=== PATIENT | male | born 1955 | race Caucasian/White ===

== ENCOUNTER → 2020-06-11 09:55 | Outpatient (BNV) | payer MEDICARE, MEDICAID, SELFPAY | PROVIDERS: PCP Internal Medicine; Visit Provider Internal Medicine Medical Oncology | DX: N18.30 Chronic kidney disease, stage 3 unspecified (principal); D63.1 Anemia in chronic kidney disease | CPT/HCPCS: 99213; 99214 ==

== ENCOUNTER 2020-08-27 16:47 | Emergency (ER) | payer MEDICARE, MEDICAID, SELFPAY ==
--- NOTE | 2020-08-27 | XR_ITS ---
EXAMINATION: XR CHEST CLINICAL INFORMATION: Cough and fever COMPARISON: Chest x-ray of 06/23/2014 TECHNIQUE: Frontal view of the chest was obtained. FINDINGS: The cardiac mediastinal silhouette is stable and within normal limits for technique. No abnormal tracheal deviation. Scattered interstitial and patchy opacities are noted bilaterally. No evidence of significant pleural effusions or pneumothorax. Regional skeleton is intact. XR/XR chest 1V IMPRESSION: Scattered interstitial and patchy opacities bilaterally in the mid and lower lung zones are concerning for infectious process in the given clinical settings.
[2020-08-27 17:01] VITALS: BP 162/76; PULSE 100; RESP 16; TEMP 39.5; O2SAT 94; BMI 28.5
[2020-08-27] MEDS: Acetaminophen 325 MG TABLET 650 MG PO (17:10)
--- NOTE | 2020-08-27 17:14 | ECG_ITS ---
Test Reason : FEVER Blood Pressure : / mmHG Vent. Rate : 078 BPM Atrial Rate : 078 BPM P-R Int : 160 ms QRS Dur : 090 ms QT Int : 390 ms P-R-T Axes : 050 019 022 degrees QTc Int : 444 ms Sinus rhythm with Premature atrial complexes Otherwise normal ECG When compared with ECG of 22-JUN-2014 23:22, Premature atrial complexes are now Present Vent. rate has increased BY 31 BPM Nonspecific T wave abnormality now evident in Inferior leads Referred By: Rivka Wallis Electronically Signed By:DUANE GELLER MD
--- NOTE | 2020-08-27 17:17 | ED_ITS ---
HPI - Fever General Chief Complaint: Fever Stated Complaint: Cough Time Seen by Provider: 08/27/20 17:13 Source: patient Mode of arrival: ambulatory Limitations: no limitations History of Present Illness HPI Narrative: 64-year-old male with past medical history of hyperlipidemia, thyroiditis, stage 3 kidney disease, type 2 diabetes, chronic anemia presents with 2 days of fevers, chills, cough and weakness. He has been taking Tylenol with poor effect. He does not report any sick contacts, denies chest pain and pressure taken shortness of breath, abdominal pain, abdominal distention, dysuria, hematuria, weakness and edema. MD elicited complaint: fever Pertinent past history: diabetes Onset (ago): day(s) (2) Measured temperature: 103 F Exacerbating factors: exertion Relieving factors: nothing Associated symptoms: chills, myalgias and cough Treatments prior to arrival fever: acetaminophen Related Data Home Medications Medication Instructions Recorded Confirmed glipizide 10 mg PO DAILY 06/11/20 06/30/20 levothyroxine 200 mcg PO DAILY 06/11/20 06/30/20 metformin 500 mg PO DAILY 06/11/20 06/30/20 omeprazole 20 mg PO DAILY 06/11/20 06/30/20 pioglitazone 45 mg PO DAILY 06/11/20 06/30/20 alcohol swabs 0 pad TOPICAL TID 06/30/20 06/30/20 atorvastatin 40 mg tablet 80 mg PO BEDTIME tab 06/30/20 06/30/20 blood sugar diagnostic #10 ea 06/30/20 06/30/20 lancets 28 gauge #100 ea 06/30/20 06/30/20 Previous Rx's Medication Instructions Recorded fenofibrate nanocrystallized 145 145 mg PO DAILY 90 Days #90 tab 06/22/20 mg tablet azithromycin [Zithromax TRI-CHRIS] See Rx Instructions .ROUTE 08/27/20 .COMPLEX #6 tab benzonatate [Tessalon Perles] 100 mg PO TID PRN 10 Days #30 cap 08/27/20 dexamethasone 6 mg PO DAILY 7 Days #7 tab 08/27/20 Allergies Allergy/AdvReac Type Severity Reaction Status Date / Time No Known Allergies Allergy Verified 08/27/20 17:04 [No Known Allergies*] Review of Systems 2 Review of Systems: Constitutional: positive Fever, positive Chills, positive fatigue, positive Malaise ENT/Mouth: positive sore throat, positive runny nose Eyes: No Discharge Cardiovascular: No Chest Pain, No SOB Respiratory: No Cough, No Sputum, No Wheezing, No Smoke Exposure, No Dyspnea Gastrointestinal: No Nausea, No Vomiting, No Diarrhea Genitourinary: no irregular bleeding, No Dysuria, No Urinary Frequency, No Hematuria, No Urinary Incontinence, No Urgency, No Flank Pain, Musculoskeletal: positive Myalgia Skin: No rash Neuro: No Headache Yes all other systems are reviewed and are negative PMFSH Past Medical History Attestation statement: The following information was validated with the patient. Source: old records reviewed Medical History Anemia in CKD (chronic kidney disease) Autoimmune thyroiditis B12 deficiency CKD stage 3 due to type 2 diabetes mellitus Mixed hyperlipidemia Surgical History History of circumcision Family History Family History Father Hypertension Mother Stroke Sister Breast cancer Social History Social History Alcohol intake: never Smoking Status: Never smoker Use of substances other than those prescribed or required for medical reasons: No Advance Directives: No Advance Directives Information Provided: No Physical Exam Vital Signs: Vital Signs: Last Vital Signs Temp 98.9 F 08/27/20 19:34 Pulse 87 08/27/20 19:30 Resp 16 08/27/20 17:01 BP 162/76 H 08/27/20 17:01 Pulse Ox 94 08/27/20 17:01 Body Mass Index 28.5 Appearance: Alert. Oriented X3. Moderate distress. Febrile, tachycardic Eyes: Pupils equal, round and reactive to light. ENT: Pharynx normal. Neck: Normal inspection. Neck supple. CVS: Normal heart rate and rhythm. Pulses normal. Respiratory: No respiratory distress. Breath sounds normal. Abdomen: Soft and nontender. Skin: Skin warm and dry. Normal skin color. Normal skin turgor. Extremities: No lower extremity edema. Neuro: No motor deficit. No sensory deficit. Course Course Course Narrative: 64-year-old male presents with 2 days of upper respiratory symptoms and fever. Plan of care is CBC, Chem 7, lactic, cultures, EKG and troponin. We will resuscitate with 1 L of fluid, give p.o. antibiotics, dexamethasone and albuterol. Troponin is elevated at 25.6 but patient does have chronic kidney disease stage 3 and is a diabetic. Patient is COVID positive. Patient is not hypoxic on ambulation, maintains O2 sat above 95. Temperature initially 103 oral, 98.9 upon discharge vital signs. Detailed description of signs and symptoms indicating need for emergent intervention, patient did verbalize understanding of and agrees to plan of care discharge home. career advisor utilized for all correspondence. Google translate utilized for discharge instructions. MDM - Fever Differential Diagnosis Differential diagnosis: Likely fever of unknown origin, community acquired pneumonia, viral infection, sepsis and influenza Medical Records Attestation: I reviewed the patient's medical records. Lab Data Attestation: I reviewed the patient's lab results. Result diagrams: 08/27/20 17:50 08/27/20 17:50 Labs: Lab Results 08/27/20 08/27/20 08/27/20 Range/Units 17:43 17:50 17:50 WBC 9.8 (4.8-10.8) X10*3/uL RBC 3.60 L (4.60-5.80) X10*6/uL Hgb 10.2 L (14.0-18.0) g/dl Hct 30.5 L (42-52) % MCV 84.7 (80-98) fL MCH 28.3 (27.0-33.0) pg MCHC 33.4 (31.0-36.0) g/dl RDW 13.5 (11.0-16.0) % Plt Count 171 (160-400) X10*3/uL MPV 11.6 (9.4-12.4) fL Immature Gran % (Auto) 1.0 H (0.0-0.4) % Neut % (Auto) 82.5 H (45-73) % Lymph % (Auto) 7.9 L (20-40) % [place] % (Auto) 8.5 (2-11) % Eos % (Auto) 0.0 (0-4) % Baso % (Auto) 0.1 (0-2) % Lymph # (Auto) 0.8 L (1.2-4.9) X10*3/uL [facility] # (Auto) 0.8 (0.1-1.2) X10*3/uL Eos # (Auto) 0.0 (0.0-0.4) X10*3/uL Baso # (Auto) 0.0 (0.0-0.2) X10*3/uL Abs Immat Gran (auto) 0.10 H (0.00-0.03) X10*3/uL Absolute Neuts (auto) 8.1 (2.0-8.3) X10*3/uL Absolute Nucleated RBC 0.000 (0.0-0.012) X10*3/uL Nucleated RBC % (auto) 0.0 (0.0-0.2) /100WBC PT 15.6 H (10.8-13.0) SEC INR 1.3 H (0.9-1.1) APTT 31.6 (24.1-38.0) SEC Sodium (135-145) mmol/L Potassium (3.3-5.1) mmol/l Chloride (96-108) mmol/L Carbon Dioxide (22-29) mmol/L Anion Gap (12-20) BUN (9-16) mg/dL Creatinine (0.5-1.4) mg/dL Estim Creat Clear Calc Estimated GFR Random Glucose (60-115) mg/dL Lactic Acid (0.5-2.0) mmol/L Calcium (8.4-10.2) mg/dL Magnesium (1.6-2.6) mg/dL Total Bilirubin (0.0-1.0) mg/dL Direct Bilirubin (0.0-0.5) mg/dL AST (5-37) U/L ALT (0-40) U/L Alkaline Phosphatase (39-117) U/L Troponin I High Sens (<3.5-35.0) ng/L Total Protein (6.5-8.0) g/dL Albumin (3.5-5.0) g/dL Lipase (8-78) U/L Urine Color Urine Appearance Urine pH (5.0-8.0) Ur Specific [place] (1.005-1.025) Urine Protein (NEG-TRACE) MG/DL Urine Glucose (UA) (NEG) MG/DL Urine Ketones (NEG) MG/DL Urine Blood (NEG) Urine Nitrite (NEG) Ur Leukocyte Esterase (NEG) Urine RBC (0) /HPF Urine WBC (0-4) /HPF Ur Squamous Epith Cells /LPF Amorphous Sediment /LPF Urine Bacteria /LPF Coronavirus (PCR) POSITIVE A (Negative) Influenza Type A (PCR) NEGATIVE (Negative) Influenza Type B (PCR) NEGATIVE (Negative) RSV RNA Qual (PCR) NEGATIVE (Negative) 08/27/20 08/27/20 08/27/20 Range/Units 17:50 17:50 17:50 WBC (4.8-10.8) X10*3/uL RBC (4.60-5.80) X10*6/uL Hgb (14.0-18.0) g/dl Hct (42-52) % MCV (80-98) fL MCH (27.0-33.0) pg MCHC (31.0-36.0) g/dl RDW (11.0-16.0) % Plt Count (160-400) X10*3/uL MPV (9.4-12.4) fL Immature Gran % (Auto) (0.0-0.4) % Neut % (Auto) (45-73) % Lymph % (Auto) (20-40) % [facility] % (Auto) (2-11) % Eos % (Auto) (0-4) % Baso % (Auto) (0-2) % Lymph # (Auto) (1.2-4.9) X10*3/uL [facility] # (Auto) (0.1-1.2) X10*3/uL Eos # (Auto) (0.0-0.4) X10*3/uL Baso # (Auto) (0.0-0.2) X10*3/uL Abs Immat Gran (auto) (0.00-0.03) X10*3/uL Absolute Neuts (auto) (2.0-8.3) X10*3/uL Absolute Nucleated RBC (0.0-0.012) X10*3/uL Nucleated RBC % (auto) (0.0-0.2) /100WBC PT (10.8-13.0) SEC INR (0.9-1.1) APTT (24.1-38.0) SEC Sodium 132 L (135-145) mmol/L Potassium 4.0 (3.3-5.1) mmol/l Chloride 100 (96-108) mmol/L Carbon Dioxide 20 L (22-29) mmol/L Anion Gap 16 (12-20) BUN 16 (9-16) mg/dL Creatinine 1.85 H (0.5-1.4) mg/dL Estim Creat Clear Calc 41.6 Estimated GFR 37 Random Glucose 138 H (60-115) mg/dL Lactic Acid 1.2 (0.5-2.0) mmol/L Calcium 8.3 L D (8.4-10.2) mg/dL Magnesium 2.0 (1.6-2.6) mg/dL Total Bilirubin 0.7 (0.0-1.0) mg/dL Direct Bilirubin 0.5 (0.0-0.5) mg/dL AST 54 H (5-37) U/L ALT 28 (0-40) U/L Alkaline Phosphatase 36 L D (39-117) U/L Troponin I High Sens (<3.5-35.0) ng/L Total Protein 7.2 (6.5-8.0) g/dL Albumin 3.7 (3.5-5.0) g/dL Lipase 26 (8-78) U/L Urine Color Urine Appearance Urine pH (5.0-8.0) Ur Specific [place] (1.005-1.025) Urine Protein (NEG-TRACE) MG/DL Urine Glucose (UA) (NEG) MG/DL Urine Ketones (NEG) MG/DL Urine Blood (NEG) Urine Nitrite (NEG) Ur Leukocyte Esterase (NEG) Urine RBC (0) /HPF Urine WBC (0-4) /HPF Ur Squamous Epith Cells /LPF Amorphous Sediment /LPF Urine Bacteria /LPF Coronavirus (PCR) (Negative) Influenza Type A (PCR) (Negative) Influenza Type B (PCR) (Negative) RSV RNA Qual (PCR) (Negative) 08/27/20 08/27/20 Range/Units 17:50 18:01 WBC (4.8-10.8) X10*3/uL RBC (4.60-5.80) X10*6/uL Hgb (14.0-18.0) g/dl Hct (42-52) % MCV (80-98) fL MCH (27.0-33.0) pg MCHC (31.0-36.0) g/dl RDW (11.0-16.0) % Plt Count (160-400) X10*3/uL MPV (9.4-12.4) fL Immature Gran % (Auto) (0.0-0.4) % Neut % (Auto) (45-73) % Lymph % (Auto) (20-40) % [facility] % (Auto) (2-11) % Eos % (Auto) (0-4) % Baso % (Auto) (0-2) % Lymph # (Auto) (1.2-4.9) X10*3/uL [facility] # (Auto) (0.1-1.2) X10*3/uL Eos # (Auto) (0.0-0.4) X10*3/uL Baso # (Auto) (0.0-0.2) X10*3/uL Abs Immat Gran (auto) (0.00-0.03) X10*3/uL Absolute Neuts (auto) (2.0-8.3) X10*3/uL Absolute Nucleated RBC (0.0-0.012) X10*3/uL Nucleated RBC % (auto) (0.0-0.2) /100WBC PT (10.8-13.0) SEC INR (0.9-1.1) APTT (24.1-38.0) SEC Sodium (135-145) mmol/L Potassium (3.3-5.1) mmol/l Chloride (96-108) mmol/L Carbon Dioxide (22-29) mmol/L Anion Gap (12-20) BUN (9-16) mg/dL Creatinine (0.5-1.4) mg/dL Estim Creat Clear Calc Estimated GFR Random Glucose (60-115) mg/dL Lactic Acid (0.5-2.0) mmol/L Calcium (8.4-10.2) mg/dL Magnesium (1.6-2.6) mg/dL Total Bilirubin (0.0-1.0) mg/dL Direct Bilirubin (0.0-0.5) mg/dL AST (5-37) U/L ALT (0-40) U/L Alkaline Phosphatase (39-117) U/L Troponin I High Sens 25.6 (<3.5-35.0) ng/L Total Protein (6.5-8.0) g/dL Albumin (3.5-5.0) g/dL Lipase (8-78) U/L Urine Color DARK YELLOW Urine Appearance HAZY Urine pH 5.5 (5.0-8.0) Ur Specific [place] 1.025 (1.005-1.025) Urine Protein 2+ H (NEG-TRACE) MG/DL Urine Glucose (UA) NEG (NEG) MG/DL Urine Ketones NEG (NEG) MG/DL Urine Blood 1+ H (NEG) Urine Nitrite NEG (NEG) Ur Leukocyte Esterase NEG (NEG) Urine RBC 1-4 (0) /HPF Urine WBC 0-2 (0-4) /HPF Ur Squamous Epith Cells TRACE /LPF Amorphous Sediment TRACE /LPF Urine Bacteria NONE /LPF Coronavirus (PCR) (Negative) Influenza Type A (PCR) (Negative) Influenza Type B (PCR) (Negative) RSV RNA Qual (PCR) (Negative) Imaging Data Chest x-ray: Attestation: I personally reviewed and interpreted this imaging study as follows: Radiologist's impression: EXAMINATION: XR CHEST CLINICAL INFORMATION: Cough and fever COMPARISON: Chest x-ray of 06/23/2014 TECHNIQUE: Frontal view of the chest was obtained. FINDINGS: The cardiac mediastinal silhouette is stable and within normal limits for technique. No abnormal tracheal deviation. Scattered interstitial and patchy opacities are noted bilaterally. No evidence of significant pleural effusions or pneumothorax. Regional skeleton is intact. XR/XR chest 1V IMPRESSION: Scattered interstitial and patchy opacities bilaterally in the mid and lower lung zones are concerning for infectious process in the given clinical settings. ECG Data ECG #1: Attestation: I personally reviewed and interpreted this ECG as follows: ECG interpretation date: 08/27/20 ECG interpretation time: 18:32 Interpretation: Vent. Rate : 078 BPM Atrial Rate : 078 BPM P-R Int : 160 ms QRS Dur : 090 ms QT Int : 390 ms P-R-T Axes : 050 019 022 degrees QTc Int : 444 ms Sinus rhythm with Premature atrial complexes Otherwise normal ECG When compared with ECG of 22-JUN-2014 23:22, Premature atrial complexes are now Present Vent. rate has increased BY 31 BPM Nonspecific T wave abnormality now evident in Inferior leads Scores Heart Score History: -1- moderately suspicious ECG: -1- non specific repolarization disturbance Age: -1- >45 - <65 Risk factory: -1- 1 or 2 risk factors Troponin: -0- < or = normal limit Score: 4 Risk: 16.6% Discharge Plan Discharge Clinical Impression: COVID-19 Patient Disposition: Home, Self-Care Instructions: COVID-19 (Coronavirus Disease 2019) (ED) Additional Instructions: Harvey dado positivo en COVID-19. Por favor, mantenga el aislamiento social seg?n las pautas estatales y federales. Estamos recetando antibi?ticos para prevenir abe infecci?n bacteriana, ya que usted tiene un mayor riesgo debido a la diabetes y la enfermedad renal. Por favor, tome azitromicina solomon se indica. Completa todo el curso de ana antibi?grace. You have tested positive for COVID-19. Please maintain social isolation per State and Federal guidelines. We are prescribing antibiotics to prevent a bacterial infection as you have a higher risk because of diabetes and kidney disease. Please take azithromycin as directed. Complete the entire course of this antibiotic. Prescriptions: New azithromycin [Zithromax TRI-CHRIS] 500 mg tablet See Rx Instructions .ROUTE .COMPLEX Qty: 6 RF: 0 dexamethasone 6 mg tablet 6 mg PO DAILY 7 Days Qty: 7 RF: 0 benzonatate [Tessalon Perles] 100 mg capsule 100 mg PO TID PRN (Reason: cough) 10 Days Qty: 30 RF: 0 No Action fenofibrate nanocrystallized 145 mg tablet 145 mg PO DAILY 90 Days Qty: 90 RF: 3 glipizide 10 mg tablet extended release 24hr 10 mg PO DAILY RF: 0 pioglitazone 45 mg tablet 45 mg PO DAILY RF: 0 levothyroxine 50 mcg tablet 200 mcg PO DAILY RF: 0 omeprazole 20 mg capsule,delayed release(DR/EC) 20 mg PO DAILY RF: 0 metformin 500 mg tablet extended release 24 hr 500 mg PO DAILY RF: 0 atorvastatin 40 mg tablet 80 mg PO BEDTIME RF: 0 alcohol swabs Pads, Medicated 0 pad topical TID RF: 0 (DME) lancets 28 gauge misc See Rx Instructions ea topical DAILY Qty: 100 RF: 0 (DME) FreeStyle Lite Strips Strip See Rx Instructions ea Not Applicable DAILY Qty: 10 RF: 0 Interventions: ED Discharge Assessment Last Done: 08/27/20 20:21 Discharge Date/Time: 08/27/20 20:24
[2020-08-27 17:59] VITALS: TEMP 38.1
[2020-08-27] MEDS: 0.9 % Sodium Chloride 1,000 ML 999 ML IVCONT (18:00)
[2020-08-27] MEDS: Ketorolac Tromethamine 15 MG/ML VIAL IVPUSH (18:00)
[2020-08-27 18:14] LABS: Basophils Percent Auto 0.1 % (0-2); Hematocrit 30.5 % (42-52); Hemoglobin 10.2 g/dl (14.0-18.0); Lymphocytes Absolute Auto 0.8 X10*3/uL (1.2-4.9); Lymphocytes Percent Auto 7.9 % (20-40); MANUAL DIFF FLAG NO; Mean Corpuscular HGB Conc 33.4 g/dl (31.0-36.0); Mean Corpuscular Hemoglobin 28.3 pg (27.0-33.0); Mean Corpuscular Volume 84.7 fL (80-98); Mean Platelet Volume 11.6 fL (9.4-12.4); Monocytes Absolute Auto 0.8 X10*3/uL (0.1-1.2); Monocytes Percent Auto 8.5 % (2-11); Neutrophils Absolute Auto 8.1 X10*3/uL (2.0-8.3); Neutrophils Percent Auto 82.5 % (45-73); Platelet Count 171 X10*3/uL (160-400); Red Cell Distribution Width 13.5 % (11.0-16.0); White Blood Count 9.8 X10*3/uL (4.8-10.8)
[2020-08-27 18:21] LABS: INTERNATIONAL NORM RATIO 1.3 (0.9-1.1); Prothrombin Time 15.6 SEC (10.8-13.0)
[2020-08-27 18:24] LABS: Partial Thromboplastin Time 31.6 SEC (24.1-38.0)
[2020-08-27 18:26] LABS: Glucose Urine UA NEG (NEG); Leukocyte Esterase Urine NEG (NEG); Nitrite Urine NEG (NEG); PH 5.5 (5.0-8.0); Specific Gravity - Urine 1.025 (1.005-1.025); Urine Blood 1+ (NEG); Urine Ketones NEG (NEG); Urine Protein 2+ MG/DL (NEG-TRACE)
[2020-08-27 18:29] LABS: Appearance Urine HAZY; Color Urine DARK YELLOW
[2020-08-27 18:35] LABS: Amorphous Sediment Urine TRACE /LPF; Squamous Epithelial Cell Urine TRACE /LPF; WBC Urine 0-2 /HPF (0-4)
[2020-08-27 18:39] LABS: Lactic Acid 1.2 mmol/L (0.5-2.0)
[2020-08-27 18:43] LABS: Alanine Aminotransferase 28 U/L (0-40); Albumin Level 3.7 g/dL (3.5-5.0); Alkaline Phosphatase 36 U/L (39-117); Anion Gap 16 (12-20); Aspartate Amino Transferase 54 U/L (5-37); Bilirubin Direct 0.5 mg/dL (0.0-0.5); Bilirubin Total 0.7 mg/dL (0.0-1.0); Blood Urea Nitrogen 16 mg/dL (9-16); Calcium 8.3 mg/dL (8.4-10.2); Carbon Dioxide 20 mmol/L (22-29); Chloride 100 mmol/L (96-108); Creatinine Clr Calc Pharmacy 41.6; Estimated Glomerular Filt Rate 37; Glucose Random 138 mg/dL (60-115); Lipase 26 U/L (8-78); Sodium 132 mmol/L (135-145); Total Protein 7.2 g/dL (6.5-8.0)
[2020-08-27 18:48] LABS: Troponin-I High Sensitivity 25.6 ng/L (<3.5-35.0)
[2020-08-27 18:51] LABS: Influenza A PCR NEGATIVE (Negative); Influenza B PCR NEGATIVE (Negative); Resp Syncy Virus RNA Qual PCR NEGATIVE (Negative)
[2020-08-27 18:57] LABS: SARS COV2 PCR INHOUSE POSITIVE (Negative)
[2020-08-27] MEDS: Albuterol Sulfate 90 MCG 8 GM INHALER 2 PUFF INHALE (19:29)
[2020-08-27 19:30] VITALS: PULSE 87; O2SAT 94
[2020-08-27 19:34] VITALS: TEMP 37.2
--- NOTE | 2020-08-27 19:34 | PC.NURSE ---
PT REMAINS AFEBRILE. SPO2 >96% ON ROOM AIR WHILE AMBULATING AND CONVERSING. RESP EVEN AND NONLABOURED. RT TO BEDSIDE FOR INSTRUCTION ON USE OF INHALER.
[2020-08-27] MEDS: dexAMETHasone 6 MG TABLET PO (20:10)
[2020-08-27] MEDS: Azithromycin 500 MG TABLET PO (20:10)
[2020-08-27 20:49] VITALS: TEMP 39.4
== END 2020-08-27 20:24 | disposition home or self-care (01) ==
PROVIDERS: Nurse Practitioner Family; Emergency Provider Emergency Medicine; PCP Internal Medicine
DX: U07.1 COVID-19 (principal); R50.9 Fever, unspecified; R05 Cough; I12.9 Hypertensive chronic kidney disease with stage 1 through stage 4 chronic kidney disease, or unspecified chronic kidney disease; E11.22 Type 2 diabetes mellitus with diabetic chronic kidney disease; N18.9 Chronic kidney disease, unspecified; Z79.84 Long term (current) use of oral hypoglycemic drugs; Z79.899 Other long term (current) drug therapy
CPT/HCPCS: 0241U; 36415; 71045; 80048; 80076; 81001; 83605; 83690; 83735; 84484; 85025; 85610; 85730; 87040; 93005; 94640; 96361; 96374; 99284; J1885; J8540

== ENCOUNTER 2020-09-04 12:03 | Emergency (ER) | payer MEDICARE, MEDICAID, SELFPAY ==
[2020-09-04] VITALS (8 sets, daily range): BP systolic 125–171; BP diastolic 68–98; PULSE 64–97; RESP 16–85; TEMP 36.6–36.8; O2SAT 92–98; BMI 31.1
--- NOTE | 2020-09-04 12:34 | US_ITS ---
EXAMINATION: ULTRASOUND ARTERIAL DUPLEX LOWER EXTREMITY LEFT CLINICAL INFORMATION: Left lower extremity numbness, discolored, cool. COMPARISON: None TECHNIQUE: Multiple 2-D grayscale and duplex Doppler ultrasound images of the arteries of the left lower extremity were obtained. FINDINGS: Triphasic and biphasic waveforms are seen in the left lower extremity except in the left profundofemoral and popliteal arteries demonstrated monophasic waveforms. Peak systolic arterial velocities are as follows in centimeters per second: Common femoral: 100 Profunda femoral: 117 Proximal superficial femoral: 102 Mid superficial femoral: 80 Distal superficial femoral: 40 Proximal Popliteal: 28 Distal popliteal: 12, severe atherosclerotic plaque is seen at this level without significant luminal narrowing. Posterior tibial: No detectable arterial waveforms with severe atherosclerotic plaque. Peroneal:No detectable arterial waveforms with severe atherosclerotic plaque. Dorsalis pedis: Not interrogated. US/US arterial duplex LE LT IMPRESSION: 1. Severe atherosclerotic plaque and associated luminal narrowing in the left popliteal and visualized calf arteries with associated severe stenosis and no detectable arterial waveforms in the left posterior tibial and peroneal arteries. Correlate with physical exam. This could be confirmed with CT angiography. This critical result was discussed with Dr. Chi at 2:42 PM on 09/04/2020 and it was ascertained that the content and urgency of the report was understood at the time of direct communication.
--- NOTE | 2020-09-04 12:35 | ECG_ITS ---
Test Reason : RULE OUT DVT Blood Pressure : / mmHG Vent. Rate : 068 BPM Atrial Rate : 068 BPM P-R Int : 150 ms QRS Dur : 088 ms QT Int : 432 ms P-R-T Axes : 028 012 045 degrees QTc Int : 459 ms Normal sinus rhythm Normal ECG When compared with ECG of 27-AUG-2020 18:32, Premature atrial complexes are no longer Present Referred By: Nakita Chi Electronically Signed By:YOLY GARCIAS
--- NOTE | 2020-09-04 12:38 | ED_ITS ---
HPI - General Adult General Chief complaint: Extremity Injury, Lower Stated complaint: LEFT LEG PAIN Time Seen by Provider: 09/04/20 12:23 Source: patient and EMS Mode of arrival: EMS Limitations: language barrier History of Present Illness HPI narrative: Patient comes to emergency room via EMS complaining of left lower extremity pain. Patient states yesterday at 20:00, he noticed that his leg started to become numb/tingly and painful. Patient went to sleep, this morning when patient woke up, he could not tolerate bearing weight. This afternoon, patient called his son, explained the symptoms and then EMS was called. Patient is poor historian. Of note, patient was seen here on August 27, patient was diagnosed with COVID-19. Related Data Home Medications Medication Instructions Recorded Confirmed glipizide 10 mg PO DAILY 06/11/20 06/30/20 levothyroxine 200 mcg PO DAILY 06/11/20 06/30/20 metformin 500 mg PO DAILY 06/11/20 06/30/20 omeprazole 20 mg PO DAILY 06/11/20 06/30/20 pioglitazone 45 mg PO DAILY 06/11/20 06/30/20 alcohol swabs 0 pad TOPICAL TID 06/30/20 06/30/20 atorvastatin 40 mg tablet 80 mg PO BEDTIME tab 06/30/20 06/30/20 blood sugar diagnostic #10 ea 06/30/20 06/30/20 lancets 28 gauge #100 ea 06/30/20 06/30/20 Previous Rx's Medication Instructions Recorded fenofibrate nanocrystallized 145 145 mg PO DAILY 90 Days #90 tab 06/22/20 mg tablet azithromycin [Zithromax TRI-CHRIS] See Rx Instructions .ROUTE 08/27/20 .COMPLEX #6 tab benzonatate [Tessalon Perles] 100 mg PO TID PRN 10 Days #30 cap 08/27/20 dexamethasone 6 mg PO DAILY 7 Days #7 tab 08/27/20 Allergies Allergy/AdvReac Type Severity Reaction Status Date / Time No Known Allergies Allergy Verified 09/04/20 12:23 [No Known Allergies*] Review of Systems Review of Systems: Constitutional : No Weight loss, No Fever, No Chills, No Night Sweats, No Fatigue, No Malaise ENT/Mouth : No Hearing loss, No Ear Pain, No Nasal Congestion, No Sinus Pain, No Hoarseness, No sore throat, No Rhinorrhea, No Swallowing Difficulty Eyes: No Eye Pain, No Swelling, No Redness, No Foreign Body, No Discharge, No Vision Changes Cardiovascular : No Chest Pain, No SOB, No Dyspnea on Exertion, No Orthopnea, No Edema, No Palpitations Respiratory : No Cough, No Sputum, No Wheezing, No Smoke Exposure, No Dyspnea Gastrointestinal : No Nausea, No Vomiting, No Diarrhea, No Constipation, No abdominal Pain, No Hematochezia, No Melena Genitourinary : no irregular bleeding, No Dysuria, No Urinary Frequency, No Hematuria, No Urinary Incontinence, No Urgency, No Flank Pain, No Urinary Flow Changes, No Hesitancy Musculoskeletal : complaining of left-sided foot pain Skin : No Skin Lesions, No rash Neuro : No Weakness, No Numbness, No Paresthesias, No Loss of Consciousness, No Dizziness, No Headache Psych : No Anxiety/Panic, No Depression, No SI/HI/AH/VH, No Social Issues, Heme/Lymph: No Bruising, No Bleeding,No Lymphadenopathy Endocrine : No Polyuria, No Polydipsia, No Temperature Intolerance [facility] Past Medical History Medical History Anemia in CKD (chronic kidney disease) Autoimmune thyroiditis B12 deficiency CKD stage 3 due to type 2 diabetes mellitus Mixed hyperlipidemia Surgical History History of circumcision Family History Family History Father Hypertension Mother Stroke Sister Breast cancer Social History Social History Alcohol intake: never Smoking Status: Never smoker Advance Directives: No Advance Directives Information Provided: No Physical Exam Vital Signs: Vital Signs: Last Vital Signs Temp 98.3 F 09/04/20 14:00 Pulse 70 09/04/20 14:00 Resp 20 09/04/20 15:28 BP 149/89 H 09/04/20 14:00 Pulse Ox 98 09/04/20 14:00 Body Mass Index 31.1 Appearance: Alert. Oriented X3. No acute distress. Eyes: Pupils equal, round and reactive to light. ENT: Pharynx normal. Neck: Normal inspection. Neck supple. No lymph nodes noted. No crepitus CVS: Normal heart rate and rhythm. Pulses normal. Normal S1 and S2 Respiratory: No respiratory distress. Breath sounds normal. No Wheezing. No rales Abdomen: Soft and nontender. No rigidity. No distention. good BS x4 Skin: See below Extremities: No lower extremity edema bilaterally. Pedal pulse on the right foot 1/5, left pedal pulses undetectable. Foot has a bluish discoloration, cold to touch, sluggish capilary refill, patient states it is very painful to mild palpation Neuro: Oriented X 3. No motor deficit. No sensory deficit. Moving all extermities. No slurred speech. Course Course Course Narrative: Patient's arterial ultrasound was ordered on arrival, it has been over an hour and the patient has not gone to ultrasound to rule out arterial blood clot. Our senior technical writer discussed with Dr. Telles if we could do a runoff of the extremities, however patient's creatinine is 1.91 and GFR is 35, at this time it is not recommended, current recommendations is to keep insisting to speed up the process for the arterial ultrasound 12:42 I discussed the arterial ultrasound with our radiologist, patient has luminal narrowing in the left popliteal artery, also has associated severe stenosis and no detectable arterial waveforms in the left posterior tibial and peroneal arteries For our ED psychiatric secretary, she has been on hold for over 9 minutes, waiting for the answering service to picking belt operator the phone call. I spoke with Dr. Chi at 15:35, discussed the arterial ultrasound and physical exam with Dr. Chi, we discussed admitting the patient here versus being transferred, after informing Dr. Chi that the patient has foot appearance is worsening, Dr. Chi recommended to transfer him to [facility]. Patient was given a heparin bolus and started on a heparin drip. at 3:55pm I discussed the patient with Dr. Caal from [facility] vascular surgery, patient accepted. Medical Decision Making Lab Data Result diagrams: 09/04/20 12:43 09/04/20 12:43 Labs: Lab Results 09/04/20 09/04/20 09/04/20 Range/Units 12:43 12:43 12:43 WBC 13.9 H (4.8-10.8) X10*3/uL RBC 4.05 L (4.60-5.80) X10*6/uL Hgb 11.5 L (14.0-18.0) g/dl Hct 34.6 L (42-52) % MCV 85.4 (80-98) fL MCH 28.4 (27.0-33.0) pg MCHC 33.2 (31.0-36.0) g/dl RDW 13.9 (11.0-16.0) % Plt Count 432 H D (160-400) X10*3/uL MPV 10.6 (9.4-12.4) fL Immature Gran % (Auto) 3.3 H (0.0-0.4) % Neut % (Auto) 82.1 H (45-73) % Lymph % (Auto) 8.1 L (20-40) % [place] % (Auto) 6.3 (2-11) % Eos % (Auto) 0.1 (0-4) % Baso % (Auto) 0.1 (0-2) % Lymph # (Auto) 1.1 L (1.2-4.9) X10*3/uL [place] # (Auto) 0.9 (0.1-1.2) X10*3/uL Eos # (Auto) 0.0 (0.0-0.4) X10*3/uL Baso # (Auto) 0.0 (0.0-0.2) X10*3/uL Abs Immat Gran (auto) 0.46 H (0.00-0.03) X10*3/uL Absolute Neuts (auto) 11.4 H (2.0-8.3) X10*3/uL Absolute Nucleated RBC 0.000 (0.0-0.012) X10*3/uL Nucleated RBC % (auto) 0.0 (0.0-0.2) /100WBC PT 14.0 H (10.8-13.0) SEC INR 1.2 H (0.9-1.1) D-Dimer 648 NG/ML Sodium 133 L (135-145) mmol/L Potassium 4.7 (3.3-5.1) mmol/l Chloride 98 (96-108) mmol/L Carbon Dioxide 22 (22-29) mmol/L Anion Gap 18 (12-20) BUN 31 H D (9-16) mg/dL Creatinine 1.91 H (0.5-1.4) mg/dL Estim Creat Clear Calc 35.5 Estimated GFR 35 POC Glucose (60-115) mg/dL Random Glucose 435 H* (60-115) mg/dL Lactic Acid (0.5-2.0) mmol/L Calcium 8.9 D (8.4-10.2) mg/dL 09/04/20 09/04/20 09/04/20 Range/Units 13:26 14:36 15:01 WBC (4.8-10.8) X10*3/uL RBC (4.60-5.80) X10*6/uL Hgb (14.0-18.0) g/dl Hct (42-52) % MCV (80-98) fL MCH (27.0-33.0) pg MCHC (31.0-36.0) g/dl RDW (11.0-16.0) % Plt Count (160-400) X10*3/uL MPV (9.4-12.4) fL Immature Gran % (Auto) (0.0-0.4) % Neut % (Auto) (45-73) % Lymph % (Auto) (20-40) % [place] % (Auto) (2-11) % Eos % (Auto) (0-4) % Baso % (Auto) (0-2) % Lymph # (Auto) (1.2-4.9) X10*3/uL [place] # (Auto) (0.1-1.2) X10*3/uL Eos # (Auto) (0.0-0.4) X10*3/uL Baso # (Auto) (0.0-0.2) X10*3/uL Abs Immat Gran (auto) (0.00-0.03) X10*3/uL Absolute Neuts (auto) (2.0-8.3) X10*3/uL Absolute Nucleated RBC (0.0-0.012) X10*3/uL Nucleated RBC % (auto) (0.0-0.2) /100WBC PT (10.8-13.0) SEC INR (0.9-1.1) D-Dimer NG/ML Sodium (135-145) mmol/L Potassium (3.3-5.1) mmol/l Chloride (96-108) mmol/L Carbon Dioxide (22-29) mmol/L Anion Gap (12-20) BUN (9-16) mg/dL Creatinine (0.5-1.4) mg/dL Estim Creat Clear Calc Estimated GFR POC Glucose 136 H 70 (60-115) mg/dL Random Glucose (60-115) mg/dL Lactic Acid 3.1 H* (0.5-2.0) mmol/L Calcium (8.4-10.2) mg/dL Imaging Data Arterial ultrasound left lower extremity: Radiologist's impression: 1. Severe atherosclerotic plaque and associated luminal narrowing in the left popliteal and visualized calf arteries with associated severe stenosis and no detectable arterial waveforms in the left posterior tibial and peroneal arteries. Correlate with physical exam. This could be confirmed with CT angiography. ECG Data Attestation: I personally reviewed and interpreted this ECG as follows: (Normal sinus rhythm, heart rate 68, QTC 459, no ST segment depressions or elevations, no T-wave inversions) Critical Care Time Critical Care Time Total Critical Care Time: 60 Discharge Plan Discharge Clinical Impression: Ischemia of left lower extremity Patient Disposition: Xfer [facility] Prescriptions: No Action fenofibrate nanocrystallized 145 mg tablet 145 mg PO DAILY 90 Days Qty: 90 RF: 3 glipizide 10 mg tablet extended release 24hr 10 mg PO DAILY RF: 0 pioglitazone 45 mg tablet 45 mg PO DAILY RF: 0 levothyroxine 50 mcg tablet 200 mcg PO DAILY RF: 0 omeprazole 20 mg capsule,delayed release(DR/EC) 20 mg PO DAILY RF: 0 metformin 500 mg tablet extended release 24 hr 500 mg PO DAILY RF: 0 atorvastatin 40 mg tablet 80 mg PO BEDTIME RF: 0 azithromycin [Zithromax TRI-CHRIS] 500 mg tablet See Rx Instructions .ROUTE .COMPLEX Qty: 6 RF: 0 dexamethasone 6 mg tablet 6 mg PO DAILY 7 Days Qty: 7 RF: 0 benzonatate [Tessalon Perles] 100 mg capsule 100 mg PO TID PRN (Reason: cough) 10 Days Qty: 30 RF: 0 alcohol swabs Pads, Medicated 0 pad topical TID RF: 0 (DME) lancets 28 gauge misc See Rx Instructions ea topical DAILY Qty: 100 RF: 0 (DME) FreeStyle Lite Strips Strip See Rx Instructions ea Not Applicable DAILY Qty: 10 RF: 0
[2020-09-04 12:54] LABS: Basophils Percent Auto 0.1 % (0-2); Eosinophils Percent Auto 0.1 % (0-4); Hematocrit 34.6 % (42-52); Hemoglobin 11.5 g/dl (14.0-18.0); Imm Gran Abs Auto 0.46 X10*3/uL (0.00-0.03); Imm Gran Pct Auto 3.3 % (0.0-0.4); Lymphocytes Absolute Auto 1.1 X10*3/uL (1.2-4.9); Lymphocytes Percent Auto 8.1 % (20-40); Mean Corpuscular HGB Conc 33.2 g/dl (31.0-36.0); Mean Corpuscular Hemoglobin 28.4 pg (27.0-33.0); Mean Corpuscular Volume 85.4 fL (80-98); Mean Platelet Volume 10.6 fL (9.4-12.4); Monocytes Absolute Auto 0.9 X10*3/uL (0.1-1.2); Monocytes Percent Auto 6.3 % (2-11); Neutrophils Absolute Auto 11.4 X10*3/uL (2.0-8.3); Neutrophils Percent Auto 82.1 % (45-73); Platelet Count 432 X10*3/uL (160-400); Red Blood Count 4.05 X10*6/uL (4.60-5.80); Red Cell Distribution Width 13.9 % (11.0-16.0); White Blood Count 13.9 X10*3/uL (4.8-10.8)
[2020-09-04 12:56] LABS: MANUAL DIFF FLAG NO
[2020-09-04 13:00] LABS: INTERNATIONAL NORM RATIO 1.2 (0.9-1.1)
[2020-09-04 13:03] LABS: D Dimer 648 NG/ML
[2020-09-04 13:19] LABS: Anion Gap 18 (12-20); Blood Urea Nitrogen 31 mg/dL (9-16); Calcium 8.9 mg/dL (8.4-10.2); Carbon Dioxide 22 mmol/L (22-29); Chloride 98 mmol/L (96-108); Creatinine Clr Calc Pharmacy 35.5; Estimated Glomerular Filt Rate 35; Glucose Random 435 mg/dL (60-115); Potassium 4.7 mmol/l (3.3-5.1); Sodium 133 mmol/L (135-145)
[2020-09-04] MEDS: Morphine Sulfate 4 MG/ML CARTRIDGE IVPUSH (13:49)
[2020-09-04] MEDS: 0.9 % Sodium Chloride 1,000 ML 999 ML IVCONT (13:49)
[2020-09-04] MEDS: Insulin Regular, Human 100 UNIT/ML 3 ML VIAL 10 UNIT IVPUSH (13:50)
--- NOTE | 2020-09-04 13:53 | PC.NURSE ---
ultrasound at bedside
[2020-09-04 14:12] LABS: Lactic Acid 3.1 mmol/L (0.5-2.0)
[2020-09-04 14:45] LABS: Glucose, Whole Blood 136 mg/dL (60-115)
[2020-09-04] MEDS: Dextrose 5 % and 0.45 % NaCl 1,000 ML 125 ML IVCONT (15:13)
[2020-09-04 15:24] LABS: Glucose, Whole Blood 70 mg/dL (60-115)
[2020-09-04] MEDS: HYDROmorphone HCl 1 MG/ML SYRINGE IVPUSH ×2 (15:28→16:29)
[2020-09-04 15:33] LABS: Reflex Lactate? Lactic Acid Added
--- NOTE | 2020-09-04 15:38 | PC.NURSE ---
[facility] PT TX LINE CALLED @ DR ASHLEY REQUEST@ [phone] MJ ANSWERS, TAKES PT INFO, CALL BACK NUMBER AND ASKS TO SPEAK WITH DR GABI ASHLEY TAKES OVER CALL RIGHT AWAY
--- NOTE | 2020-09-04 15:54 | PC.NURSE ---
RETURN CALL FROM @ THIS TIME DR ASHLEY TAKES OVER CALL
[2020-09-04] MEDS: Heparin Sodium,Porcine/1/2NS 25,000 UNIT/250 ML IV.SOLN 11.16 UNIT IVCONT (16:27)
[2020-09-04] MEDS: Heparin Sodium,Porcine 5,000 UNIT/ML VIAL 3188 UNIT IVPUSH (16:28)
[2020-09-04 16:32] LABS: ~Lactic Acid-LAB USE ONLY 2.7 mmol/L (0.5-2.0)
--- NOTE | 2020-09-04 16:34 | PC.NURSE ---
l lower leg continues to become more and more discolored, pale and cool from mid noonan down, mottled in bridge of foot. cap refill is hard to measure due to palor.
--- NOTE | 2020-09-04 16:49 | PC.NURSE ---
RETURN ALL FROM YANY @ [facility] PT PLACEMENT @ THIS TIME SARAH 6B BED 68A RN TO RN [phone]
--- NOTE | 2020-09-04 17:04 | PC.NURSE ---
no improvement in lle. continues to appear mottled in foot and is very cool/pale in calf. 2l nc applied. [place] [facility] [place]n spoke with shad on phone for update.
[2020-09-04 17:08] LABS: Glucose, Whole Blood 72 mg/dL (60-115)
[2020-09-04 17:08] LABS: Glucose, Whole Blood 79 mg/dL (60-115)
--- NOTE | 2020-09-04 17:10 | PC.NURSE ---
Rn to Rn with holden Vega 6B.
[2020-09-04 17:34] LABS: Glucose, Whole Blood 133 mg/dL (60-115)
--- NOTE | 2020-09-04 17:34 | PC.NURSE ---
bedside report to ems. pt alert. foot continues to deteriorate.
[2020-09-04 17:54] LABS: Reflex Lactate? 2 Y
== END 2020-09-04 17:35 | disposition short-term general hospital (02) ==
PROVIDERS: Emergency Provider Emergency Medicine
DX: I99.8 Other disorder of circulatory system (principal); M79.662 Pain in left lower leg; E11.22 Type 2 diabetes mellitus with diabetic chronic kidney disease; N18.30 Chronic kidney disease, stage 3 unspecified; D63.1 Anemia in chronic kidney disease; Z86.16 Personal history of COVID-19
CPT/HCPCS: 36415; 80048; 82947; 83605; 85025; 85379; 85610; 93005; 93926; 96361; 96365; 96366; 96375; 99285; 99291; J1170; J2270

== ENCOUNTER 2020-10-21 10:06 | Outpatient (REF) | payer MEDICARE, MEDICAID, SELFPAY ==
--- NOTE | ~2020-10-21 | XR_ITS ---
EXAMINATION: XR FEMUR, LEFT CLINICAL INFORMATION: Status post above-knee amputation, fall. COMPARISON: None TECHNIQUE: AP and lateral views of the left femur were obtained. FINDINGS: The patient is status post above-knee amputation. The distal stump soft tissues and distal margin of the femur are intact without abnormality. Mild heterotopic bone formation is seen medially without abnormality. The proximal femur is intact. XR/XR femur LT 2V IMPRESSION: Postsurgical changes without acute abnormality.
== END 2020-10-21 10:07 | disposition home or self-care (01) ==
LOC: HO.XRAY 10:06
PROVIDERS: PCP Internal Medicine; Visit Provider Nurse Practitioner Adult Health
DX: Z89.612 Acquired absence of left leg above knee (principal)
CPT/HCPCS: 73552

== ENCOUNTER 2021-02-20 11:50 | Inpatient (IN) | payer MEDICARE, MEDICAID, SELFPAY ==
--- NOTE | ~2021-02-20 | US_ITS ---
EXAMINATION: US ABDOMEN COMPLETE CLINICAL INFORMATION: Abnormal LFTs.. COMPARISON: None TECHNIQUE: Real-time imaging of the abdominal viscera. FINDINGS: Limited exam as patient is unable to hold breath and patient's body habitus. PANCREAS: Normal. ABDOMINAL AORTA: The proximal, mid, and distal segments are normal in caliber. INFERIOR VENA CAVA: Visualized portions are normal. LIVER: Normal. The liver is normal in size. The liver contour is normal. Parenchymal echogenicity is normal. No focal hepatic lesion. There is no intrahepatic biliary duct dilatation seen. GALLBLADDER: The gallbladder is physiologically distended with echogenic stones and a positive GREY signed COMMON BILE DUCT: Normal in caliber measuring 0.6 cm in diameter. RIGHT KIDNEY: Normal. No hydronephrosis. No renal calculi or focal parenchymal lesions. The kidney measures 10.0 cm in maximum dimension. LEFT KIDNEY: Normal. No hydronephrosis. No renal calculi or focal parenchymal lesions. The kidney measures 10.6 cm in maximum dimension. SPLEEN: Normal. The spleen measures 7.7 cm in maximum dimension. FREE FLUID: None. US/US abdomen complete IMPRESSION: Gallstone with positive GREY sign. Rest of the abdominal ultrasound is unremarkable.
--- NOTE | ~2021-02-20 | XR_ITS ---
EXAMINATION: PORTABLE CHEST 1 VIEW CLINICAL INFORMATION: Weakness. COMPARISON: 08/27/2020. TECHNIQUE: Portable frontal view of the chest was obtained. FINDINGS: The lungs are well expanded. No focal infiltrate, effusion, edema, or pneumothorax. Cardiac and mediastinal silhouettes are within normal limits for technique. No acute bony abnormality seen. XR/XR chest 1V IMPRESSION: No evidence of acute disease.
--- NOTE | ~2021-02-20 | CT_ITS ---
EXAMINATION: CT HEAD WITHOUT CONTRAST CLINICAL INFORMATION: Right lower extremity weakness for one month. COMPARISON: None TECHNIQUE: Contiguous axial imaging was performed from the skull base to vertex without intravenous administration of contrast. This CT examination was performed using dose optimization techniques as appropriate, variously including the following: *Automated exposure control *Adjustment of mA and/or kV according to patient size (this includes techniques or standardized protocols for targeted exams where dose is matched to indication/reason for exam; i.e. extremities or head) *Use of iterative reconstruction technique DLP: 637 mGy-cm This CT examination was performed using dose optimization techniques as appropriate, variously including the following: *Automated exposure control *Adjustment of mA and/or kV according to patient size (this includes techniques or standardized protocols for targeted exams where dose is matched to indication/reason for exam; i.e. extremities or head) *Use of iterative reconstruction technique FINDINGS: Brain parenchyma and vessels: No acute pathology. There is symmetric, physiologic calcification of the globus pallidi. Thomas-white matter differentiation is well preserved. No cerebral edema, major vascular territory infarction, hemorrhage, mass or midline shift. There is atherosclerotic calcification of cavernous carotid arteries.. Cerebrospinal fluid spaces: Normal. No hydrocephalus or extra-axial fluid collections. Cerebellum and brainstem: Normal. The cerebellar tonsils are in normal position. The cerebellopontine angles are normal. Calvarium and temporomandibular joints: Calvarium is intact. Mastoid air cells and middle ear cavities are well aerated. The TMJs are normal. Paranasal sinuses and orbits: The visualized paranasal sinuses are well aerated and without air-fluid levels. The visualized orbits and globes are intact. Other: No scalp hematoma. No acute findings in the visualized extracranial soft tissues. CT/CT head/brain wo con IMPRESSION: No significant findings. No evidence of mass, infarction, hemorrhage or other acute intracranial pathology.
[2021-02-20 11:58] VITALS: BP 155/78; PULSE 97; RESP 20; TEMP 36.3; O2SAT 98; BMI 29.7
--- NOTE | 2021-02-20 12:07 | ECG_ITS ---
Test Reason : SOB Blood Pressure : / mmHG Vent. Rate : 085 BPM Atrial Rate : 085 BPM P-R Int : 160 ms QRS Dur : 082 ms QT Int : 398 ms P-R-T Axes : 050 010 063 degrees QTc Int : 473 ms Normal sinus rhythm T wave abnormality, consider anterior ischemia Prolonged QT Abnormal ECG When compared with ECG of 04-SEP-2020 12:39, T wave inversion now evident in Anterior leads Referred By: Erica Woo Electronically Signed By:YOLY GARCIAS
--- NOTE | 2021-02-20 12:10 | ED.WEAKNESS ---
HPI - Weakness General Chief complaint: Weakness Stated complaint: BLACK URINE X'S 1 DAY Time Seen by Provider: 02/20/21 12:06 Source: patient and EMS Mode of arrival: EMS History of Present Illness HPI Narrative: 65-year-old male with a past medical history of anemia chronic disease, autoimmune thyroiditis, vitamin B12 deficiency, CKD, HLD, transaminitis, left above-knee amputation, presenting to the ED complaining of coffee-colored urine and right lower extremity weakness x1 month with inability/difficulty standing on right leg when using the bathroom. Denies fever, chills, headache, CP/SOB, abdominal pain, nausea/vomiting, hematuria. Takes ASA Complaint: focal weakness Related Data Home Medications Medication Instructions Recorded Confirmed pioglitazone 45 mg PO DAILY 06/11/20 02/07/21 alcohol swabs 0 pad TOPICAL TID 06/30/20 02/07/21 blood sugar diagnostic #10 ea 06/30/20 02/07/21 lancets 28 gauge #100 ea 06/30/20 02/07/21 insulin lispro 100 unit/mL See Rx Instructions SUBCUT TID 11/02/20 02/07/21 subcutaneous pen Previous Rx's Medication Instructions Recorded pen needle, diabetic 31 gauge x #50 ea 10/12/2001/16 walker #1 ea 10/19/20 aspirin 81 mg tablet,delayed 81 mg PO DAILY 90 Days #90 tab 10/28/20 release fenofibrate nanocrystallized 145 145 mg PO DAILY 90 Days #90 tab 10/28/20 mg tablet gabapentin 100 mg capsule 100 mg PO TID 30 Days #90 cap 10/28/20 glipizide 10 mg tablet, extended 10 mg PO DAILY 90 Days #90 tab 10/28/20 release 24 hr levothyroxine 200 mcg tablet 200 mcg PO DAILY 90 Days #90 tab 11/02/20 levothyroxine 50 mcg tablet 50 mcg PO DAILY 90 Days #90 tab 11/02/20 wheelchair #1 ea 11/08/20 metformin 500 mg tablet,extended 500 mg PO DAILY 90 Days #90 tab 12/21/20 release 24 hr insulin glargine 100 unit/mL (3 10 unit SUBCUT QPM 30 Days #3 ml 12/31/20 mL) subcutaneous pen omeprazole 20 mg capsule,delayed 20 mg PO DAILY 90 Days #90 cap 02/07/21 release Allergies Allergy/AdvReac Type Severity Reaction Status Date / Time No Known Allergies Allergy Verified 02/07/21 15:05 [No Known Allergies*] Review of Systems Review of Systems: Constitutional: No Fever, No Chills, No Fatigue, No Malaise Cardiovascular: No Chest Pain, No SOB, No Edema, No Palpitations Respiratory: No Cough, No Dyspnea Gastrointestinal: No Nausea, No Vomiting, No Diarrhea, No Constipation, No Abdominal pain Genitourinary: +Coffee-colored urine, No Dysuria, No Hematuria, No Flank Pain, No Urinary Flow Changes Musculoskeletal: No joint pain, No Myalgias Skin: No Skin Lesions, No rash Neuro: + Weakness, No Numbness, No Paresthesias, No Headache Yes all other systems are reviewed and are negative Neurologic: Denies Abnormal speech present [facility] Past Medical History Attestation statement: The following information was validated with the patient. Medical History (Updated 02/20/21 @ 15:32 by CHESTER Regalado) Amputee, above knee Anemia in CKD (chronic kidney disease) Autoimmune thyroiditis B12 deficiency CKD stage 3 due to type 2 diabetes mellitus History of left below knee amputation Mixed hyperlipidemia Transaminitis Unsteady gait Surgical History History of above-knee amputation History of circumcision Family History Family History Father Hypertension Mother Stroke Sister Breast cancer Brother No problems noted. Brother No problems noted. Brother No problems noted. Social History Social History Alcohol intake: never Patient Tobacco Use Status: Never used Tobacco e-Cigarette/Vaping Use: Never Used Second Hand Smoke Exposure: No Use of substances other than those prescribed or required for medical reasons: No Advance Directives: No Advance Directives Information Provided: No Physical Exam Vital Signs: Vital Signs: Last Vital Signs Temp 97.4 F 02/20/21 14:19 Pulse 85 02/20/21 14:19 Resp 15 02/20/21 14:19 BP 155/78 H 02/20/21 14:19 Pulse Ox 99 02/20/21 14:19 Body Mass Index 29.7 Const: General: cooperative, healthy appearing and no acute distress Orientation/consciousness: patient oriented x3 Limitations: no limitations HENMT: Head: Yes normal to inspection Ears: hearing grossly normal bilaterally General nose exam: Normal external nose present Face and sinus: Yes normal facial exam Eyes: General: appearance normal, both eyes and all related structures EOM: EOMs intact bilaterally Neck: Neck: Yes normal visual inspection Resp: Effort & Inspection: normal respiratory effort Auscultation: clear to auscultation bilaterally and no wheezes Cardio: Other: RLE dorsalis pedal pulses intact Rate: regular rate Heart sounds: S1 normal heart sound present and S2 normal heart sound present GI: Inspection: Yes normal to inspection Palpation (GI): Soft to palpation, nontender, no guarding and not rigid Skin: Rashes: no rashes Wounds: no wounds Neuro: Other: +decreased strength to RLE. Unable to lift off bed against gravity but able to perform knee flexion General: patient oriented x3, tone normal, moves all extremities and CN's II-XI intact bilaterally Cranial nerves: Yes CN's II-XII intact bilaterally Cognition (Neuro): normal cognition Speech: No Abnormal speech present Coordination: [id number] test normal Romberg Test: Negative Extrem: Other: Left AKA General: Yes normal to inspection Course Course Course Narrative: CT head/brain wo con IMPRESSION: No significant findings. No evidence of mass, infarction, hemorrhage or other acute intracranial pathology XR chest 1V IMPRESSION: No evidence of acute disease -1431-- no leukocytosis, H&H stable, BUN elevated to 26, bilirubin'elevated, AST/ALT acute on chronically elevated, troponin elevated at 281.9. CPK still pending, troponin could be falsely elevated secondary to that vs NSTEMI, patient without chest pain Will obtain abdomen ultrasound -1520-- CPK severely elevated >55,000, D5W with sodium bicarb ordered > no evidence of compartment syndrome, likely myositis. Elevated troponin likely secondary to CPK rather than NSTEMI but will obtain 3 hour repeat troponin Plan to admit patient for further management. -1600-- Spoke to Nephrology, recommend D5W w/sodium bicarbonate 150cc/ hour, bladder scan, & they will consult on patient. Will place Carroll to monitor strict I&O's MDM - Weakness MDM Narrative Medical decision making narrative: 65-year-old male with a past medical history of anemia chronic disease, autoimmune thyroiditis, vitamin B12 deficiency, CKD, HLD, transaminitis, left above-knee amputation, presenting to the ED complaining of coffee-colored urine and right lower extremity weakness x1 month with inability/difficulty standing on right leg when using the bathroom. On exam vital signs stable, NAD/nontoxic, decreased strength noted to RLE, otherwise no focal deficits, abdomen soft/nontender, lungs CTA. Concern for renal failure vs rhabdo vs subacute CVA vs metabolic abns. R/o infectious etiology. Patient is out of the window for tPA, is not tPA candidate Plan: EKG, labs, UA, CXR, head CT, IVF, reassess, anticipated admission Medical Records Attestation: I reviewed the patient's medical records. Lab Data Attestation: I reviewed the patient's lab results. Result diagrams: 02/20/21 13:50 02/20/21 13:50 Labs: Lab Results 02/20/21 02/20/21 02/20/21 Range/Units 13:50 13:50 13:50 WBC 6.9 (4.8-10.8) X10*3/uL RBC 3.93 L (4.60-5.80) X10*6/uL Hgb 10.9 L (14.0-18.0) g/dl Hct 32.8 L (42-52) % MCV 83.5 (80-98) fL MCH 27.7 (27.0-33.0) pg MCHC 33.2 (31.0-36.0) g/dl RDW 15.5 (11.0-16.0) % Plt Count 253 (160-400) X10*3/uL MPV 12.1 (9.4-12.4) fL Immature Gran % (Auto) 0.1 (0.0-0.4) % Neut % (Auto) 72.0 (45-73) % Lymph % (Auto) 17.2 L (20-40) % [place] % (Auto) 10.3 (2-11) % Eos % (Auto) 0.1 (0-4) % Baso % (Auto) 0.3 (0-2) % Lymph # (Auto) 1.2 (1.2-4.9) X10*3/uL [place] # (Auto) 0.7 (0.1-1.2) X10*3/uL Eos # (Auto) 0.0 (0.0-0.4) X10*3/uL Baso # (Auto) 0.0 (0.0-0.2) X10*3/uL Abs Immat Gran (auto) 0.01 (0.00-0.03) X10*3/uL Absolute Neuts (auto) 5.0 (2.0-8.3) X10*3/uL Absolute Nucleated RBC 0.000 (0.0-0.012) X10*3/uL Nucleated RBC % (auto) 0.0 (0.0-0.2) /100WBC PT 12.8 (10.8-13.0) SEC INR 1.1 (0.9-1.1) APTT 28.4 (24.1-38.0) SEC Sodium 138 (135-145) mmol/L Potassium 4.7 D (3.3-5.1) mmol/L Chloride 107 (96-108) mmol/L Carbon Dioxide 21 L (22-29) mmol/L Anion Gap 15 (12-20) BUN 26 H D (9-16) mg/dL Creatinine 0.85 (0.5-1.4) mg/dL Estim Creat Clear Calc 88.4 Estimated GFR > 60 Random Glucose 218 H (60-115) mg/dL Calcium 9.1 (8.4-10.2) mg/dL Magnesium 2.2 (1.6-2.6) mg/dL Total Bilirubin 1.5 H (0.0-1.0) mg/dL Direct Bilirubin 1.0 H (0.0-0.5) mg/dL AST 1001 H (5-37) U/L ALT 357 H (0-40) U/L Alkaline Phosphatase 84 D (39-117) U/L Total Creatine Kinase 14726 H (38-174) U/L Troponin I High Sens (<3.5-35.0) ng/L Total Protein 5.5 L (6.5-8.0) g/dL Albumin 3.2 L (3.5-5.0) g/dL COVID-19 (JOSE) (Negative) COVID-19 Clin Com 02/20/21 02/20/21 Range/Units 13:50 13:50 WBC (4.8-10.8) X10*3/uL RBC (4.60-5.80) X10*6/uL Hgb (14.0-18.0) g/dl Hct (42-52) % MCV (80-98) fL MCH (27.0-33.0) pg MCHC (31.0-36.0) g/dl RDW (11.0-16.0) % Plt Count (160-400) X10*3/uL MPV (9.4-12.4) fL Immature Gran % (Auto) (0.0-0.4) % Neut % (Auto) (45-73) % Lymph % (Auto) (20-40) % [place] % (Auto) (2-11) % Eos % (Auto) (0-4) % Baso % (Auto) (0-2) % Lymph # (Auto) (1.2-4.9) X10*3/uL [place] # (Auto) (0.1-1.2) X10*3/uL Eos # (Auto) (0.0-0.4) X10*3/uL Baso # (Auto) (0.0-0.2) X10*3/uL Abs Immat Gran (auto) (0.00-0.03) X10*3/uL Absolute Neuts (auto) (2.0-8.3) X10*3/uL Absolute Nucleated RBC (0.0-0.012) X10*3/uL Nucleated RBC % (auto) (0.0-0.2) /100WBC PT (10.8-13.0) SEC INR (0.9-1.1) APTT (24.1-38.0) SEC Sodium (135-145) mmol/L Potassium (3.3-5.1) mmol/L Chloride (96-108) mmol/L Carbon Dioxide (22-29) mmol/L Anion Gap (12-20) BUN (9-16) mg/dL Creatinine (0.5-1.4) mg/dL Estim Creat Clear Calc Estimated GFR Random Glucose (60-115) mg/dL Calcium (8.4-10.2) mg/dL Magnesium (1.6-2.6) mg/dL Total Bilirubin (0.0-1.0) mg/dL Direct Bilirubin (0.0-0.5) mg/dL AST (5-37) U/L ALT (0-40) U/L Alkaline Phosphatase (39-117) U/L Total Creatine Kinase (38-174) U/L Troponin I High Sens 281.9 H* (<3.5-35.0) ng/L Total Protein (6.5-8.0) g/dL Albumin (3.5-5.0) g/dL COVID-19 (JOSE) Negative (Negative) COVID-19 Clin Com See Note ECG Data Attestation: I personally reviewed and interpreted this ECG as follows: ECG interpretation date: 02/20/21 ECG interpretation time: 13:38 Prior ECG tracings: available for review Interpretation: EKG showing normal sinus rhythm with a rate of 85. T-wave inversions in V1 through V4. Change from prior EKGs. No STEMI Discharge Plan Discharge Clinical Impression: Rhabdomyolysis, Abnormal LFTs Patient Disposition: Admitted As Inpatient
[2021-02-20] MEDS: 0.9 % Sodium Chloride 1,000 ML 999 ML IVCONT ×2 (12:44→15:40)
--- NOTE | 2021-02-20 13:00 | PC.NURSE ---
Pt alert, oriented, vss. Pt is a L above the knee amputee reporting to the ed with c/o, coffee colored urine, R lower extremity weakness x1 month and difficulty standing on R leg. Pt takes ASA, no c/o n/v, diarrhea, chest pain/sob. The pt's brother who is at bedside requests case management, he states his brother lives alone and needs help. CHESTER Maldonado made aware. IV established, labs drawn, fluid hung.
[2021-02-20 13:57] LABS: MANUAL DIFF FLAG NO
[2021-02-20 13:58] LABS: Basophils Percent Auto 0.3 % (0-2); Eosinophils Percent Auto 0.1 % (0-4); Hematocrit 32.8 % (42-52); Hemoglobin 10.9 g/dl (14.0-18.0); Imm Gran Abs Auto 0.01 X10*3/uL (0.00-0.03); Imm Gran Pct Auto 0.1 % (0.0-0.4); Lymphocytes Absolute Auto 1.2 X10*3/uL (1.2-4.9); Lymphocytes Percent Auto 17.2 % (20-40); Mean Corpuscular HGB Conc 33.2 g/dl (31.0-36.0); Mean Corpuscular Hemoglobin 27.7 pg (27.0-33.0); Mean Corpuscular Volume 83.5 fL (80-98); Mean Platelet Volume 12.1 fL (9.4-12.4); Monocytes Absolute Auto 0.7 X10*3/uL (0.1-1.2); Monocytes Percent Auto 10.3 % (2-11); Platelet Count 253 X10*3/uL (160-400); Red Blood Count 3.93 X10*6/uL (4.60-5.80); Red Cell Distribution Width 15.5 % (11.0-16.0); White Blood Count 6.9 X10*3/uL (4.8-10.8)
[2021-02-20 14:12] LABS: IDNOW Serial# 9DD0AD1C
[2021-02-20 14:14] LABS: COVID-19 Test Negative (Negative)
[2021-02-20 14:16] LABS: INTERNATIONAL NORM RATIO 1.1 (0.9-1.1); Prothrombin Time 12.8 SEC (10.8-13.0)
[2021-02-20 14:18] LABS: Partial Thromboplastin Time 28.4 SEC (24.1-38.0)
[2021-02-20 14:19] VITALS: BP 155/78; PULSE 85; RESP 15; TEMP 36.3; O2SAT 99
[2021-02-20 14:28] LABS: Alanine Aminotransferase 357 U/L (0-40); Albumin Level 3.2 g/dL (3.5-5.0); Alkaline Phosphatase 84 U/L (39-117); Anion Gap 15 (12-20); Aspartate Amino Transferase 1001 U/L (5-37); Bilirubin Total 1.5 mg/dL (0.0-1.0); Blood Urea Nitrogen 26 mg/dL (9-16); Calcium 9.1 mg/dL (8.4-10.2); Carbon Dioxide 21 mmol/L (22-29); Chloride 107 mmol/L (96-108); Creatinine Clr Calc Pharmacy 88.4; Estimated Glomerular Filt Rate > 60; Glucose Random 218 mg/dL (60-115); Magnesium 2.2 mg/dL (1.6-2.6); Potassium 4.7 mmol/L (3.3-5.1); Sodium 138 mmol/L (135-145); Total Protein 5.5 g/dL (6.5-8.0)
[2021-02-20 14:30] LABS: Troponin-I High Sensitivity 281.9 ng/L (<3.5-35.0)
[2021-02-20 16:04] LABS: Glucose Urine UA 250 MG/DL (NEG); Leukocyte Esterase Urine NEG (NEG); Nitrite Urine NEG (NEG); Urine Blood 3+ (NEG); Urine Ketones NEG (NEG); Urine Protein 2+ MG/DL (NEG-TRACE)
[2021-02-20 16:05] LABS: Appearance Urine HAZY; Color Urine YELLOW
[2021-02-20 16:15] LABS: Amorphous Sediment Urine 4+ /LPF; RBC Urine 0 /HPF (0); Squamous Epithelial Cell Urine 2+ /LPF; WBC Urine 0-2 /HPF (0-4)
[2021-02-20 16:33] LABS: Amphetamine Screen Urine Not Detected (Not Detect); Barbiturates, Urine Not Detected (Not Detect); Benzodiazepines Screen Urine Not Detected (Not Detect); Cannabinoid Screen Urine Not Detected (Not Detect); Cocaine Screen Urine Not Detected (Not Detect); Opiate Screen Urine Not Detected (Not Detect); Phencyclidine Screen Urine Not Detected (Not Detect)
[2021-02-20] MEDS: Sodium Bicarbonate 8.4% 150 MEQ in Dextrose 5 % 850 ML IV (17:01)
[2021-02-20 17:04] VITALS: BP 144/82; PULSE 84; RESP 15; O2SAT 98
--- NOTE | 2021-02-20 17:27 | PM.IMHP ---
History of Present Illness Date of Service: 02/20/21 Chief Complaint: dark-colored urine 65yo M with CKD3, anemia of CKD, hypothyroidism, HLD, DM2, and COVID-19 pneumonia not requiring hospitalization. His left leg is amputated above the knee. He presents today with a 1-day history of dark coffee-colored urine and a week or so of weakness and cramping in the right leg. In the ED, he was noted to have rhabdomyolysis with CPK [id number] but a normal serum creatinine of 0.85. He was started on a bicarbonate infusion and admission was requested. He last saw his PCP, Dr Carmichael, on 02/07/21; at that visit, she discontinued atorvastatin after noting that the patient had transaminitis with AST of 969 and ALT of 582 on prior lab panel on 12/13/20. Today's AST is 1001 and ALT 357. He did stop the atorvastatin but remains on fenofibrate. He denies fever, dyspnea, cough, chest pain, nausea, vomiting, or abdominal pain. Review of Systems Review of Systems: Yes all other systems are reviewed and are negative [facility] Medical History Amputee, above knee Anemia in CKD (chronic kidney disease) Autoimmune thyroiditis B12 deficiency CKD stage 3 due to type 2 diabetes mellitus History of left below knee amputation Mixed hyperlipidemia Transaminitis Unsteady gait Functional capacity: uses cane/walker (has prosthesis) Family History Father Hypertension Mother Stroke Sister Breast cancer Brother No problems noted. Brother No problems noted. Brother No problems noted. Surgical History History of above-knee amputation History of circumcision Social History Alcohol intake: never Patient Tobacco Use Status: Never used Tobacco e-Cigarette/Vaping Use: Never Used Second Hand Smoke Exposure: No Use of substances other than those prescribed or required for medical reasons: No Advance Directives: No Advance Directives Information Provided: No Meds Allergies Allergy/AdvReac Type Severity Reaction Status Date / Time No Known Allergies Allergy Verified 02/07/21 15:05 [No Known Allergies*] Active Medications: Current Medications Generic Name Dose Route Start Last Admin Trade Name Freq PRN Reason Stop Dose Admin Acetaminophen 650 mg 02/20/21 17:22 Acetaminophen 325 Mg Tablet PO Q6H PRN Pain, Mild (Pain Scale 1-3) Aspirin 81 mg 02/21/21 09:00 Aspirin Enteric Coated 81 Mg Tablet. PO DAILY [facility] Enoxaparin Sodium 40 mg 02/20/21 20:00 Enoxaparin Sodium 40 Mg/0.4 Ml Syringe SUBCUT Q24H [facility] Gabapentin 100 mg 02/20/21 21:00 Gabapentin 100 Mg Capsule PO TID [facility] Sodium Bicarbonate 150 meq/ 1,000 mls @ 150 mls/hr 02/20/21 16:00 02/20/21 17:01 Dextrose IV 150 mls/hr .Q6H40M [facility] Administration Insulin Human Lispro 0 unit 02/20/21 21:00 Insulin Lispro 100 Unit/Ml 3 Ml Vial SUBCUT QIDACHS [facility] Protocol Levothyroxine Sodium 200 mcg 02/21/21 09:00 Levothyroxine Sodium 200 Mcg Tablet PO DAILY [facility] Levothyroxine Sodium 50 mcg 02/21/21 09:00 Levothyroxine Sodium 50 Mcg Tablet PO DAILY [facility] Omeprazole 40 mg 02/21/21 09:00 Omeprazole 40 Mg Capsule. PO DAILY [facility] Ondansetron HCl 4 mg 02/20/21 17:22 Ondansetron Hcl 4 Mg/2 Ml Vial IVPUSH Q8H PRN Nausea and Vomiting Sodium Chloride 3 ml 02/21/21 00:00 0.9 % Sodium Chloride Flush 3 Ml Syringe IVFLUSH QSHIFT [facility] Home Medications Medication Instructions Recorded Confirmed Last Taken Type pioglitazone 45 mg PO DAILY 06/11/20 02/20/21 Unknown History alcohol swabs 0 pad TOPICAL TID 06/30/20 02/07/21 Unknown History blood sugar diagnostic #10 ea 06/30/20 02/07/21 Unknown History lancets 28 gauge #100 ea 06/30/20 02/07/21 Unknown History atorvastatin 1 tab PO BEDTIME 02/20/21 02/20/21 Unknown History omeprazole 40 mg PO DAILY 02/20/21 02/20/21 Unknown History Physical Exam Vital Signs and Narrative: Vital Signs: Last Vital Signs Temp 97.4 F 02/20/21 14:19 Pulse 84 02/20/21 17:04 Resp 15 02/20/21 17:04 BP 144/82 H 02/20/21 17:04 Pulse Ox 98 02/20/21 17:04 Body Mass Index 29.7 Gen: in no acute distress HEENT: sclera anicteric, moist mucus membranes Neck: supple Lungs: clear to auscultation bilaterally Heart: regular rate and rhythm, no murmurs Abd: soft, non-tender, non-distended : no flank tenderness. urine is dark tea-colored Ext: no edema, R AKA Skin: warm/well-perfused Neuro: alert and oriented x3, no focal findings Psych: appropriate affect Results Labs CBC and Chem 7: 02/20/21 13:50 02/20/21 13:50 Labs: Laboratory Results - last 24 hr 02/20/21 02/20/21 02/20/21 13:50 13:50 13:50 MCV 83.5 MCH 27.7 MCHC 33.2 RDW 15.5 Plt Count 253 MPV 12.1 Immature Gran % (Auto) 0.1 Neut % (Auto) 72.0 Lymph % (Auto) 17.2 L Lassen % (Auto) 10.3 Eos % (Auto) 0.1 Baso % (Auto) 0.3 Lymph # (Auto) 1.2 Lassen # (Auto) 0.7 Eos # (Auto) 0.0 Baso # (Auto) 0.0 Abs Immat Gran (auto) 0.01 Absolute Neuts (auto) 5.0 Absolute Nucleated RBC 0.000 Nucleated RBC % (auto) 0.0 PT 12.8 INR 1.1 APTT 28.4 Anion Gap 15 Estim Creat Clear Calc 88.4 Estimated GFR > 60 Random Glucose 218 H Calcium 9.1 Magnesium 2.2 Total Bilirubin 1.5 H Direct Bilirubin 1.0 H AST 1001 H ALT 357 H Alkaline Phosphatase 84 D Total Creatine Kinase 74024 H Troponin I High Sens Total Protein 5.5 L Albumin 3.2 L Urine Color Urine Appearance Urine pH Ur Specific [place] Urine Protein Urine Glucose (UA) Urine Ketones Urine Blood Urine Nitrite Ur Leukocyte Esterase Urine RBC Urine WBC Ur Squamous Epith Cells Amorphous Sediment Urine Bacteria Granular Casts Urine Opiates Screen Ur Barbiturates Screen Ur Phencyclidine Scrn Ur Amphetamines Screen U Benzodiazepines Scrn Urine Cocaine Screen U Marijuana (THC) Screen COVID-19 (JOSE) COVID-19 Clin Com 02/20/21 02/20/21 02/20/21 13:50 13:50 Unknown MCV MCH MCHC RDW Plt Count MPV Immature Gran % (Auto) Neut % (Auto) Lymph % (Auto) Lassen % (Auto) Eos % (Auto) Baso % (Auto) Lymph # (Auto) Lassen # (Auto) Eos # (Auto) Baso # (Auto) Abs Immat Gran (auto) Absolute Neuts (auto) Absolute Nucleated RBC Nucleated RBC % (auto) PT INR APTT Anion Gap Estim Creat Clear Calc Estimated GFR Random Glucose Calcium Magnesium Total Bilirubin Direct Bilirubin AST ALT Alkaline Phosphatase Total Creatine Kinase Troponin I High Sens 281.9 H* Total Protein Albumin Urine Color Urine Appearance Urine pH Ur Specific [place] Urine Protein Urine Glucose (UA) Urine Ketones Urine Blood Urine Nitrite Ur Leukocyte Esterase Urine RBC Urine WBC Ur Squamous Epith Cells Amorphous Sediment Urine Bacteria Granular Casts Urine Opiates Screen Not Detected Ur Barbiturates Screen Not Detected Ur Phencyclidine Scrn Not Detected Ur Amphetamines Screen Not Detected U Benzodiazepines Scrn Not Detected Urine Cocaine Screen Not Detected U Marijuana (THC) Screen Not Detected COVID-19 (JOSE) Negative COVID-19 Clin Com See Note 02/20/21 Unknown MCV MCH MCHC RDW Plt Count MPV Immature Gran % (Auto) Neut % (Auto) Lymph % (Auto) Lassen % (Auto) Eos % (Auto) Baso % (Auto) Lymph # (Auto) Lassen # (Auto) Eos # (Auto) Baso # (Auto) Abs Immat Gran (auto) Absolute Neuts (auto) Absolute Nucleated RBC Nucleated RBC % (auto) PT INR APTT Anion Gap Estim Creat Clear Calc Estimated GFR Random Glucose Calcium Magnesium Total Bilirubin Direct Bilirubin AST ALT Alkaline Phosphatase Total Creatine Kinase Troponin I High Sens Total Protein Albumin Urine Color YELLOW Urine Appearance HAZY Urine pH 6.0 Ur Specific [place] 1.020 Urine Protein 2+ H Urine Glucose (UA) 250 H Urine Ketones NEG Urine Blood 3+ H Urine Nitrite NEG Ur Leukocyte Esterase NEG Urine RBC 0 Urine WBC 0-2 Ur Squamous Epith Cells 2+ Amorphous Sediment 4+ Urine Bacteria NONE Granular Casts 5-9 Urine Opiates Screen Ur Barbiturates Screen Ur Phencyclidine Scrn Ur Amphetamines Screen U Benzodiazepines Scrn Urine Cocaine Screen U Marijuana (THC) Screen COVID-19 (JOSE) COVID-19 Clin Com Imaging Radiologist's Impressions: Impressions Head CT 02/20/21 12:06 IMPRESSION: No significant findings. No evidence of mass, infarction, hemorrhage or other acute intracranial pathology. Chest X-Ray 02/20/21 12:07 IMPRESSION: No evidence of acute disease. Abdomen Ultrasound 02/20/21 14:33 IMPRESSION: Gallstone with positive GREY sign. Rest of the abdominal ultrasound is unremarkable. Assessment and Plan (1) Rhabdomyolysis: Status: Acute 65yo M with CKD3, anemia of CKD, hypothyroidism, HLD, DM2, prior COVID-19 pneumonia not requiring hospitalization, and LLE AKA presenting with dark urine and RLE cramping/weakness. He is found to have severe rhabdomyolysis with preserved renal function. # rhabdomyolysis - Admit to [facility] and initiate aggressive alkaline diuresis with sodium bicarbonate IV infusion. Will consult Nephrology. Monitor BMP, CPK. The LFT and troponin elevations are due to cross-reactivity with skeletal muscle. - Denies cocaine or other stimulant ingestion and does not take any herbal supplements. Most likely causes are the statin [though this was discontinued 02/07] and fenofibrate; pioglitazone is also a possible culprit. # CKD3 - SCr at baseline, monitor closely + avoid nephrotoxins # hypothyroidism - continue LT4 # DM2 - Well-controlled with A1c of 6.5 on 02/05/21. Correction-dose lispro alone; hold MTF, GPZ, and pioglitazone. # VTE ppx - LMWH # code - FULL Quality Stroke Does the patient have a stroke diagnosis?: No VTE Prior VTE?: No VTE Risk Level:: Medical - moderate - high VTE Device Contraindication: N/A - Device Ordered VTE Drug Contraindication: N/A - Med Ordered
[2021-02-20 18:10] LABS: Venous Blood Gas Refer to POC result
[2021-02-20 18:11] LABS: VBG Base Excess -1.7 mmol/L; VBG HCO3 22 mmol/L (22-26); VBG pCO2 37 mmHg; VBG pH 7.38 (7.32-7.43); VBG pO2 39 mmHg
[2021-02-20 18:45] LABS: Troponin-I High Sensitivity 188.2 ng/L (<3.5-35.0)
--- NOTE | 2021-02-20 19:30 | PC.NURSE ---
Per MD Antoine (hospitalist) no need for price catheter insertion as originally ordered. Pt voiding without difficulty into urinal. Disregard price catheter order.
--- NOTE | 2021-02-20 20:39 | PC.NURSE ---
Attempted to call [facility] to give RN to RN report. [facility] RN unavailable, awaiting call back.
[2021-02-20 22:46] LABS: VBG Base Excess 2.3 mmol/L; VBG HCO3 25 mmol/L (22-26); VBG pCO2 35 mmHg; VBG pH 7.46 (7.32-7.43); VBG pO2 38 mmHg
[2021-02-20 22:46] LABS: Venous Blood Gas Refer to POC result
[2021-02-20 22:53] VITALS: BP 139/66; PULSE 82; RESP 20; TEMP 36.6; O2SAT 97
[2021-02-20 23:19] LABS: Anion Gap 12 (12-20); Blood Urea Nitrogen 20 mg/dL (9-16); Calcium 8.3 mg/dL (8.4-10.2); Carbon Dioxide 23 mmol/L (22-29); Chloride 107 mmol/L (96-108); Creatinine Clr Calc Pharmacy 102.9; Estimated Glomerular Filt Rate > 60; Glucose Random 246 mg/dL (60-115); Potassium 4.2 mmol/L (3.3-5.1); Sodium 138 mmol/L (135-145)
[2021-02-20] MEDS: Enoxaparin Sodium 40 MG/0.4 ML SYRINGE SUBCUT (23:25)
[2021-02-20] MEDS: Gabapentin 100 MG CAPSULE PO (23:25)
[2021-02-20 23:32] LABS: Glucose, Whole Blood 219 mg/dL (60-115)
[2021-02-20 23:37] VITALS: BP 164/75; PULSE 80; RESP 18; TEMP 36.7; O2SAT 100
[2021-02-21] MEDS: Insulin Lispro 100 UNIT/ML 3 ML VIAL SUBCUT ×4 (01:08→21:43)
[2021-02-21 01:09] LABS: Glucose, Whole Blood 260 mg/dL (60-115)
[2021-02-21 03:12] VITALS: BP 127/65; PULSE 92; RESP 20; TEMP 37.6; O2SAT 97
[2021-02-21] MEDS: Levothyroxine Sodium 200 MCG TABLET PO (05:09)
[2021-02-21] MEDS: Sodium Bicarbonate 8.4% 150 MEQ in Dextrose 5 % 850 ML IV ×3 (05:09→19:49)
[2021-02-21] MEDS: Omeprazole 40 MG CAPSULE.DR PO (05:09)
[2021-02-21] MEDS: Levothyroxine Sodium 50 MCG TABLET PO (05:09)
[2021-02-21 06:44] LABS: Basophils Percent Auto 0.3 % (0-2); Eosinophils Absolute Auto 0.1 X10*3/uL (0.0-0.4); Hematocrit 30.1 % (42-52); Hemoglobin 9.9 g/dl (14.0-18.0); Imm Gran Abs Auto 0.05 X10*3/uL (0.00-0.03); Imm Gran Pct Auto 0.7 % (0.0-0.4); Lymphocytes Absolute Auto 1.6 X10*3/uL (1.2-4.9); Lymphocytes Percent Auto 20.7 % (20-40); Mean Corpuscular HGB Conc 32.9 g/dl (31.0-36.0); Mean Corpuscular Hemoglobin 27.6 pg (27.0-33.0); Mean Corpuscular Volume 83.8 fL (80-98); Monocytes Absolute Auto 0.7 X10*3/uL (0.1-1.2); Monocytes Percent Auto 9.4 % (2-11); Neutrophils Absolute Auto 5.2 X10*3/uL (2.0-8.3); Neutrophils Percent Auto 67.9 % (45-73); Red Blood Count 3.59 X10*6/uL (4.60-5.80); Red Cell Distribution Width 15.7 % (11.0-16.0); White Blood Count 7.7 X10*3/uL (4.8-10.8)
[2021-02-21 06:45] LABS: MANUAL DIFF FLAG SCAN
[2021-02-21 06:55] LABS: Alanine Aminotransferase 350 U/L (0-40); Albumin Level 2.7 g/dL (3.5-5.0); Alkaline Phosphatase 68 U/L (39-117); Aspartate Amino Transferase 902 U/L (5-37); Bilirubin Direct 0.8 mg/dL (0.0-0.5); Total Protein 4.6 g/dL (6.5-8.0)
[2021-02-21 06:57] LABS: Anion Gap 11 (12-20); Blood Urea Nitrogen 18 mg/dL (9-16); Calcium 8.5 mg/dL (8.4-10.2); Carbon Dioxide 26 mmol/L (22-29); Chloride 108 mmol/L (96-108); Creatinine Clr Calc Pharmacy 112.1; Estimated Glomerular Filt Rate > 60; Glucose Random 87 mg/dL (60-115); Potassium 4.2 mmol/L (3.3-5.1); Sodium 141 mmol/L (135-145)
[2021-02-21 07:06] LABS: Glucose, Whole Blood 140 mg/dL (60-115)
[2021-02-21 07:25] LABS: SLIDE REVIEW VERIFIED
[2021-02-21 07:37] VITALS: BP 137/70; PULSE 88; RESP 16; TEMP 36.2; O2SAT 99
[2021-02-21] MEDS: Aspirin Enteric Coated 81 MG TABLET.DR PO (08:18)
[2021-02-21] MEDS: Gabapentin 100 MG CAPSULE PO ×3 (08:18→21:44)
[2021-02-21] MEDS: 0.9 % Sodium Chloride Flush 3 ML SYRINGE IVFLUSH (08:18)
--- NOTE | 2021-02-21 09:30 | MHC.CM.PN ---
CM met with Patient and spoke with Brother Raúl at [phone]. Patient was living alone in an apartment but per Raúl, not managing well. The goal for dc will be pending PT eval but [facility] is first choice SNF if STR is the recommendation. CM will initiate and follow for dc planning. IMM addressed with Raúl and will be mailed certified letter to him and a copy has been placed on the chart. PCP is Dr. Elisha Adams.
[2021-02-21 11:14] LABS: Glucose, Whole Blood 280 mg/dL (60-115)
[2021-02-21 11:38] VITALS: BP 138/72; PULSE 80; RESP 17; TEMP 37; O2SAT 96
--- NOTE | 2021-02-21 12:16 | HO.PM.IMPN ---
Subjective Subjective Date of Service: 02/21/21 Interval History: Patient interviewed in Kiswahili No new complaints, just RLE cramping/weakness No N/V No chest pain Physical Exam Vital Signs: Vital Signs: Last Vital Signs Temp 98.6 F 02/21/21 11:38 Pulse 80 02/21/21 11:38 Resp 17 02/21/21 11:38 BP 138/72 02/21/21 11:38 Pulse Ox 96 02/21/21 11:38 Body Mass Index 29.7 Gen: in no acute distress HEENT: sclera anicteric, moist mucus membranes Neck: supple Lungs: clear to auscultation bilaterally Heart: regular rate and rhythm, no murmurs Abd: soft, non-tender, non-distended : no flank tenderness. urine is dark tea-colored Ext: no edema, R AKA Skin: warm/well-perfused Neuro: alert and oriented x3, no focal findings Psych: appropriate affect . Objective Data Current Medications Generic Name Dose Route Start Last Admin Trade Name Freq PRN Reason Stop Dose Admin Acetaminophen 650 mg 02/20/21 17:22 Acetaminophen 325 Mg Tablet PO Q6H PRN Pain, Mild (Pain Scale 1-3) Aspirin 81 mg 02/21/21 09:00 02/21/21 08:18 Aspirin Enteric Coated 81 Mg Tablet.Dr PO 81 mg DAILY ROSELYN Administration Enoxaparin Sodium 40 mg 02/20/21 20:00 02/20/21 23:25 Enoxaparin Sodium 40 Mg/0.4 Ml Syringe SUBCUT 40 mg Q24H ROSELYN Administration Gabapentin 100 mg 02/20/21 21:00 02/21/21 08:18 Gabapentin 100 Mg Capsule PO 100 mg TID ROSELYN Administration Sodium Bicarbonate 150 meq/ 1,000 mls @ 150 mls/hr 02/20/21 16:00 02/21/21 05:09 Dextrose IV 150 mls/hr .Q6H40M ROSELYN Administration Insulin Human Lispro 0 unit 02/20/21 21:00 02/21/21 11:31 Insulin Lispro 100 Unit/Ml 3 Ml Vial SUBCUT 6 unit QIDACHS ROSELYN Administration Protocol Levothyroxine Sodium 200 mcg 02/21/21 06:00 02/21/21 05:09 Levothyroxine Sodium 200 Mcg Tablet PO 200 mcg DAILY@0600 ROSELYN Administration Levothyroxine Sodium 50 mcg 02/21/21 06:00 02/21/21 05:09 Levothyroxine Sodium 50 Mcg Tablet PO 50 mcg DAILY@0600 [facility] Administration Omeprazole 40 mg 02/21/21 06:00 02/21/21 05:09 Omeprazole 40 Mg Capsule.Dr PO 40 mg DAILY@0600 [facility] Administration Ondansetron HCl 4 mg 02/20/21 17:22 Ondansetron Hcl 4 Mg/2 Ml Vial IVPUSH Q8H PRN Nausea and Vomiting Sodium Chloride 3 ml 02/21/21 00:00 02/21/21 08:18 0.9 % Sodium Chloride Flush 3 Ml Syringe IVFLUSH 3 ml QSHIFT [facility] Administration Labs CBC & Chem 7: 02/21/21 05:14 02/21/21 05:14 Labs: Laboratory Results - last 24 hr 02/20/21 02/20/21 02/20/21 13:50 13:50 13:50 WBC 6.9 RBC 3.93 L Hgb 10.9 L Hct 32.8 L MCV 83.5 MCH 27.7 MCHC 33.2 RDW 15.5 Plt Count 253 MPV 12.1 Immature Gran % (Auto) 0.1 Neut % (Auto) 72.0 Lymph % (Auto) 17.[address] [place] % (Auto) 10.3 Eos % (Auto) 0.1 Baso % (Auto) 0.3 Lymph # (Auto) 1.2 [place] # (Auto) 0.7 Eos # (Auto) 0.0 Baso # (Auto) 0.0 Abs Immat Gran (auto) 0.01 Absolute Neuts (auto) 5.0 Absolute Nucleated RBC 0.000 Nucleated RBC % (auto) 0.0 Smear Tech's Comments PT 12.8 INR 1.1 APTT 28.4 VBG pH VBG pCO2 VBG pO2 VBG HCO3 VBG O2 Saturation VBG Base Excess Sodium 138 Potassium 4.7 D Chloride 107 Carbon Dioxide 21 L Anion Gap 15 BUN 26 H D Creatinine 0.85 Estim Creat Clear Calc 88.4 Estimated GFR > 60 POC Glucose Random Glucose 218 H Calcium 9.1 Magnesium 2.2 Total Bilirubin 1.5 H Direct Bilirubin 1.0 H AST 1001 H ALT 357 H Alkaline Phosphatase 84 D Total Creatine Kinase 40961 H Troponin I High Sens Total Protein 5.5 L Albumin 3.2 L Urine Color Urine Appearance Urine pH Ur Specific [place] Urine Protein Urine Glucose (UA) Urine Ketones Urine Blood Urine Nitrite Ur Leukocyte Esterase Urine RBC Urine WBC Ur Squamous Epith Cells Amorphous Sediment Urine Bacteria Granular Casts Urine Opiates Screen Ur Barbiturates Screen Ur Phencyclidine Scrn Ur Amphetamines Screen U Benzodiazepines Scrn Urine Cocaine Screen U Marijuana (THC) Screen COVID-19 (JOSE) COVID-19 Clin Com 02/20/21 02/20/21 02/20/21 13:50 13:50 17:59 WBC RBC Hgb Hct MCV MCH MCHC RDW Plt Count MPV Immature Gran % (Auto) Neut % (Auto) Lymph % (Auto) [place] % (Auto) Eos % (Auto) Baso % (Auto) Lymph # (Auto) [place] # (Auto) Eos # (Auto) Baso # (Auto) Abs Immat Gran (auto) Absolute Neuts (auto) Absolute Nucleated RBC Nucleated RBC % (auto) Smear Tech's Comments PT INR APTT VBG pH VBG pCO2 VBG pO2 VBG HCO3 VBG O2 Saturation VBG Base Excess Sodium Potassium Chloride Carbon Dioxide Anion Gap BUN Creatinine Estim Creat Clear Calc Estimated GFR POC Glucose Random Glucose Calcium Magnesium Total Bilirubin Direct Bilirubin AST ALT Alkaline Phosphatase Total Creatine Kinase Troponin I High Sens 281.9 H* 188.2 H* Total Protein Albumin Urine Color Urine Appearance Urine pH Ur Specific [place] Urine Protein Urine Glucose (UA) Urine Ketones Urine Blood Urine Nitrite Ur Leukocyte Esterase Urine RBC Urine WBC Ur Squamous Epith Cells Amorphous Sediment Urine Bacteria Granular Casts Urine Opiates Screen Ur Barbiturates Screen Ur Phencyclidine Scrn Ur Amphetamines Screen U Benzodiazepines Scrn Urine Cocaine Screen U Marijuana (THC) Screen COVID-19 (JOSE) Negative COVID-19 Clin Com See Note 02/20/21 02/20/21 02/20/21 17:59 18:03 22:36 WBC RBC Hgb Hct MCV MCH MCHC RDW Plt Count MPV Immature Gran % (Auto) Neut % (Auto) Lymph % (Auto) [place] % (Auto) Eos % (Auto) Baso % (Auto) Lymph # (Auto) [place] # (Auto) Eos # (Auto) Baso # (Auto) Abs Immat Gran (auto) Absolute Neuts (auto) Absolute Nucleated RBC Nucleated RBC % (auto) Smear Tech's Comments PT INR APTT VBG pH 7.38 VBG pCO2 37 VBG pO2 39 VBG HCO3 22 VBG O2 Saturation 59.0 VBG Base Excess -1.7 Sodium 138 Potassium 4.2 Chloride 107 Carbon Dioxide 23 Anion Gap 12 BUN 20 H Creatinine 0.73 Estim Creat Clear Calc 102.9 Estimated GFR > 60 POC Glucose Random Glucose 246 H Calcium 8.3 L D Magnesium Total Bilirubin Direct Bilirubin AST ALT Alkaline Phosphatase Total Creatine Kinase 14129 H Troponin I High Sens Total Protein Albumin Urine Color Urine Appearance Urine pH Ur Specific [place] Urine Protein Urine Glucose (UA) Urine Ketones Urine Blood Urine Nitrite Ur Leukocyte Esterase Urine RBC Urine WBC Ur Squamous Epith Cells Amorphous Sediment Urine Bacteria Granular Casts Urine Opiates Screen Ur Barbiturates Screen Ur Phencyclidine Scrn Ur Amphetamines Screen U Benzodiazepines Scrn Urine Cocaine Screen U Marijuana (THC) Screen COVID-19 (JOSE) COVID-Shelfie 02/20/21 02/20/21 02/20/21 22:38 23:20 Unknown WBC RBC Hgb Hct MCV MCH MCHC RDW Plt Count MPV Immature Gran % (Auto) Neut % (Auto) Lymph % (Auto) [place] % (Auto) Eos % (Auto) Baso % (Auto) Lymph # (Auto) [place] # (Auto) Eos # (Auto) Baso # (Auto) Abs Immat Gran (auto) Absolute Neuts (auto) Absolute Nucleated RBC Nucleated RBC % (auto) Smear Tech's Comments PT INR APTT VBG pH 7.46 H VBG pCO2 35 VBG pO2 38 VBG HCO3 25 VBG O2 Saturation 59.0 VBG Base Excess 2.3 Sodium Potassium Chloride Carbon Dioxide Anion Gap BUN Creatinine Estim Creat Clear Calc Estimated GFR POC Glucose 219 H Random Glucose Calcium Magnesium Total Bilirubin Direct Bilirubin AST ALT Alkaline Phosphatase Total Creatine Kinase Troponin I High Sens Total Protein Albumin Urine Color Urine Appearance Urine pH Ur Specific [place] Urine Protein Urine Glucose (UA) Urine Ketones Urine Blood Urine Nitrite Ur Leukocyte Esterase Urine RBC Urine WBC Ur Squamous Epith Cells Amorphous Sediment Urine Bacteria Granular Casts Urine Opiates Screen Not Detected Ur Barbiturates Screen Not Detected Ur Phencyclidine Scrn Not Detected Ur Amphetamines Screen Not Detected U Benzodiazepines Scrn Not Detected Urine Cocaine Screen Not Detected U Marijuana (THC) Screen Not Detected COVID-19 (JOSE) COVID-19 payleven 02/20/21 02/21/21 02/21/21 Unknown 01:05 04:28 WBC RBC Hgb Hct MCV MCH MCHC RDW Plt Count MPV Immature Gran % (Auto) Neut % (Auto) Lymph % (Auto) [place] % (Auto) Eos % (Auto) Baso % (Auto) Lymph # (Auto) [place] # (Auto) Eos # (Auto) Baso # (Auto) Abs Immat Gran (auto) Absolute Neuts (auto) Absolute Nucleated RBC Nucleated RBC % (auto) Smear Tech's Comments PT INR APTT VBG pH VBG pCO2 VBG pO2 VBG HCO3 VBG O2 Saturation VBG Base Excess Sodium Potassium Chloride Carbon Dioxide Anion Gap BUN Creatinine Estim Creat Clear Calc Estimated GFR POC Glucose 260 H Random Glucose Calcium Magnesium Total Bilirubin Direct Bilirubin AST ALT Alkaline Phosphatase Total Creatine Kinase Troponin I High Sens Total Protein Albumin Urine Color YELLOW Urine Appearance HAZY Urine pH 6.0 6.0 Ur Specific [place] 1.020 Urine Protein 2+ H Urine Glucose (UA) 250 H Urine Ketones NEG Urine Blood 3+ H Urine Nitrite NEG Ur Leukocyte Esterase NEG Urine RBC 0 Urine WBC 0-2 Ur Squamous Epith Cells 2+ Amorphous Sediment 4+ Urine Bacteria NONE Granular Casts 5-9 Urine Opiates Screen Ur Barbiturates Screen Ur Phencyclidine Scrn Ur Amphetamines Screen U Benzodiazepines Scrn Urine Cocaine Screen U Marijuana (THC) Screen COVID-19 (JOSE) COVID-19 Clin Com 02/21/21 02/21/21 02/21/21 05:14 05:14 05:14 WBC 7.7 RBC 3.59 L Hgb 9.9 L Hct 30.1 L MCV 83.8 MCH 27.6 MCHC 32.9 RDW 15.7 Plt Count BIG DATA LEAD MPV Not Reportable Immature Gran % (Auto) 0.7 H Neut % (Auto) 67.9 Lymph % (Auto) 20.7 [place] % (Auto) 9.4 Eos % (Auto) 1.0 Baso % (Auto) 0.3 Lymph # (Auto) 1.6 [place] # (Auto) 0.7 Eos # (Auto) 0.1 Baso # (Auto) 0.0 Abs Immat Gran (auto) 0.05 H Absolute Neuts (auto) 5.2 Absolute Nucleated RBC 0.000 Nucleated RBC % (auto) 0.0 Smear Tech's Comments VERIFIED PT INR APTT VBG pH VBG pCO2 VBG pO2 VBG HCO3 VBG O2 Saturation VBG Base Excess Sodium 141 Potassium 4.2 Chloride 108 Carbon Dioxide 26 Anion Gap 11 L BUN 18 H Creatinine 0.67 Estim Creat Clear Calc 112.1 Estimated GFR > 60 POC Glucose Random Glucose 87 D Calcium 8.5 Magnesium Total Bilirubin 1.0 Direct Bilirubin 0.8 H AST 902 H ALT 350 H Alkaline Phosphatase 68 Total Creatine Kinase 41394 H Troponin I High Sens Total Protein 4.6 L Albumin 2.7 L Urine Color Urine Appearance Urine pH Ur Specific [place] Urine Protein Urine Glucose (UA) Urine Ketones Urine Blood Urine Nitrite Ur Leukocyte Esterase Urine RBC Urine WBC Ur Squamous Epith Cells Amorphous Sediment Urine Bacteria Granular Casts Urine Opiates Screen Ur Barbiturates Screen Ur Phencyclidine Scrn Ur Amphetamines Screen U Benzodiazepines Scrn Urine Cocaine Screen U Marijuana (THC) Screen COVID-19 (JOSE) COVID-19 payleven 02/21/21 02/21/21 07:03 11:09 WBC RBC Hgb Hct MCV MCH MCHC RDW Plt Count MPV Immature Gran % (Auto) Neut % (Auto) Lymph % (Auto) [place] % (Auto) Eos % (Auto) Baso % (Auto) Lymph # (Auto) [place] # (Auto) Eos # (Auto) Baso # (Auto) Abs Immat Gran (auto) Absolute Neuts (auto) Absolute Nucleated RBC Nucleated RBC % (auto) Smear Tech's Comments PT INR APTT VBG pH VBG pCO2 VBG pO2 VBG HCO3 VBG O2 Saturation VBG Base Excess Sodium Potassium Chloride Carbon Dioxide Anion Gap BUN Creatinine Estim Creat Clear Calc Estimated GFR POC Glucose 140 H 280 H Random Glucose Calcium Magnesium Total Bilirubin Direct Bilirubin AST ALT Alkaline Phosphatase Total Creatine Kinase Troponin I High Sens Total Protein Albumin Urine Color Urine Appearance Urine pH Ur Specific [place] Urine Protein Urine Glucose (UA) Urine Ketones Urine Blood Urine Nitrite Ur Leukocyte Esterase Urine RBC Urine WBC Ur Squamous Epith Cells Amorphous Sediment Urine Bacteria Granular Casts Urine Opiates Screen Ur Barbiturates Screen Ur Phencyclidine Scrn Ur Amphetamines Screen U Benzodiazepines Scrn Urine Cocaine Screen U Marijuana (THC) Screen COVID-19 (JOSE) COVID-19 [employer] Com Quality Stroke Does the patient have a stroke diagnosis?: No VTE Prior VTE?: No VTE Risk Level:: Medical - moderate - high VTE Device Contraindication: N/A - Device Ordered VTE Drug Contraindication: N/A - Med Ordered Assessment and Plan (1) Rhabdomyolysis: Status: Acute Assessment and Plan: hospital d#2 65yo M with CKD3, anemia of CKD, hypothyroidism, HLD, DM2, prior COVID-19 pneumonia not requiring hospitalization, and LLE AKA presenting with dark urine and RLE cramping/weakness admitted for severe rhabdomyolysis # rhabdomyolysis - continue alkaline diuresis with sodium bicarbonate infusion, Nephrology consult pending, monitor BMP/CPK - LFTs and troponins elevated due to cross-reactivity with skeletal muscle. - likely due to statin + fenofibrate; discontinued [also possibly pioglitazone] # CKD3 - SCr at baseline, monitor closely + avoid nephrotoxins # hypothyroidism - continue LT4 # DM2 - well-controlled with A1c of 6.5 on 02/05/21. Correction-dose lispro alone; hold MTF, GPZ, and pioglitazone. # VTE ppx - LMWH
[2021-02-21] MEDS: Acetaminophen 325 MG TABLET 650 MG PO (14:21)
[2021-02-21 14:58] VITALS: BP 151/70; PULSE 86; RESP 18; TEMP 36.6; O2SAT 97
[2021-02-21 16:27] LABS: Glucose, Whole Blood 244 mg/dL (60-115)
[2021-02-21 19:01] VITALS: BP 146/72; PULSE 75; RESP 17; TEMP 36.7; O2SAT 97
[2021-02-21 20:03] LABS: Glucose, Whole Blood 179 mg/dL (60-115)
[2021-02-21] MEDS: Enoxaparin Sodium 40 MG/0.4 ML SYRINGE SUBCUT (21:43)
[2021-02-21 23:19] VITALS: BP 158/82; PULSE 84; RESP 18; TEMP 37; O2SAT 94
[2021-02-22] MEDS: Sodium Bicarbonate 8.4% 150 MEQ in Dextrose 5 % 850 ML IV (02:21)
[2021-02-22 03:39] VITALS: BP 135/75; PULSE 88; RESP 20; TEMP 37.2; O2SAT 96
[2021-02-22] MEDS: Levothyroxine Sodium 50 MCG TABLET PO (05:45)
[2021-02-22] MEDS: Levothyroxine Sodium 200 MCG TABLET PO (05:45)
[2021-02-22] MEDS: Omeprazole 40 MG CAPSULE.DR PO (05:45)
[2021-02-22 06:59] LABS: Glucose, Whole Blood 217 mg/dL (60-115)
[2021-02-22 07:02] VITALS: BP 148/73; PULSE 73; RESP 16; TEMP 36.7; O2SAT 94
[2021-02-22 07:26] LABS: Anion Gap 10 (12-20); Blood Urea Nitrogen 15 mg/dL (9-16); Calcium 8.1 mg/dL (8.4-10.2); Carbon Dioxide 35 mmol/L (22-29); Chloride 99 mmol/L (96-108); Creatinine Clr Calc Pharmacy 108.9; Estimated Glomerular Filt Rate > 60; Glucose Random 240 mg/dL (60-115); Potassium 3.8 mmol/L (3.3-5.1); Sodium 140 mmol/L (135-145)
[2021-02-22] MEDS: Aspirin Enteric Coated 81 MG TABLET.DR PO (07:56)
[2021-02-22] MEDS: 0.9 % Sodium Chloride Flush 3 ML SYRINGE IVFLUSH ×2 (07:56→22:19)
[2021-02-22] MEDS: Gabapentin 100 MG CAPSULE PO ×3 (07:56→22:18)
[2021-02-22] MEDS: Insulin Lispro 100 UNIT/ML 3 ML VIAL SUBCUT ×3 (07:56→22:18)
[2021-02-22] MEDS: 0.9 % Sodium Chloride 1,000 ML 125 ML IVCONT ×2 (08:05→17:39)
--- NOTE | 2021-02-22 11:09 | CONS_ITS ---
DATE OF SERVICE: 02/21/2021 REASON FOR CONSULTATION: Consult requested by the medical team to evaluate and help in management of patient with rhabdomyolysis. Patient is a 65-year-old male with past medical history of hypothyroidism; hyperlipidemia; type 2 diabetes mellitus; COVID pneumonia in the past, it did not require hospitalization; mild CKD; who presents to the hospital with complaints of weakness and cramping in the right leg. In the ER, patient was noted to have severe rhabdo with a CPK level of 55,000. He had a near normal creatinine level of 0.85. He was initiated on IV bicarb drip as per the recommendation of one of my nephrology associates over the phone. He was seen by his PCP on 02/07/2021 and his atorvastatin was discontinued. This was done because the AST and ALT were elevated. His ALT and ALT continues to be elevated. He did stop the atorvastatin, but remained on the fenofibrate. He did not have any fever, dyspnea, cough, chest pain, nausea, vomiting, or abdominal pain. REVIEW OF SYSTEMS: As noted above. Other systems are reviewed and negative. 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 FAMILY HISTORY: Significant for hypertension, CVA, and breast CA. PAST SURGICAL HISTORY: Above-knee amputation as mentioned before and circumcision. PERSONAL AND SOCIAL HISTORY: Patient never drank. Does not smoke. Does not use drugs. ALLERGIES: PATIENT HAS NO KNOWN DRUG ALLERGIES. HOME MEDICATIONS: Include pioglitazone; atorvastatin, which has been stopped; and omeprazole. PHYSICAL EXAMINATION: GENERAL: Patient is resting in the bed. Awake, alert, oriented x3, in no significant distress. VITAL SIGNS: Blood pressure 138/72, pulse 80, afebrile. HEENT: Pupils equal, round, and reactive bilaterally light. Mucosa moist. There is no scleral icterus or conjunctival congestion. NECK: No jugular venous distention noted. Neck was supple. No thyromegaly is noted. CARDIOVASCULAR SYSTEM: S1, S2 without rub or murmur. RESPIRATORY SYSTEM: Air entry decreased in bases. No crepitation or rhonchi is noted. ABDOMEN: Soft. Bowel sounds normal. EXTREMITIES: No edema. There is a right AKA. LABS: Done today show WBC 7.7, hemoglobin 9.9, hematocrit 30. Sodium 141, potassium 4.2, chloride 106, CO2 26, BUN 18, creatinine 0.67. CPK level today was 45,743. IMPRESSION: A 65-year-old male with, 1. Rhabdomyolysis in the setting of combined HMG-CoA reductase inhibitor use and fenofibrate use. 2. Mild chronic kidney disease at baseline without any acute kidney injury associated with the rhabdo/pigment nephropathy. 3. History of hypothyroidism. 4. Type 2 diabetes mellitus. 5. Hypertension. RECOMMENDATIONS: At this juncture, I recommend continuation of IV fluids with bicarbonate for 24 hours. Good diuresis would help with preventing pigment nephropathy in this patient. We need to monitor his liver function tests, renal function, and electrolytes closely. We need to check his divalents and replace as needed. I recommend discontinuation of statin and fenofibrate, and avoid using these medications in future. Thank you for allowing me to participate in the medical management of the patient. MD BRITTNI Pineda/YUDI / [id number] MTDD
[2021-02-22 11:25] VITALS: BP 131/70; PULSE 85; RESP 19; TEMP 36.6; O2SAT 98
--- NOTE | 2021-02-22 11:48 | PM.PNNEP ---
Subjective Subjective Date of Service: 02/22/21 Interval history: Patient interviewed in Ethiopian No new complaints, just RLE cramping/weakness No N/V No chest pain Physical Exam Vital Signs: Vital Signs: Last Vital Signs Temp 97.8 F 02/22/21 11:25 Pulse 85 02/22/21 11:25 Resp 19 02/22/21 11:25 BP 131/70 02/22/21 11:25 Pulse Ox 98 02/22/21 11:25 Body Mass Index 29.7 Gen: in no acute distress HEENT: sclera anicteric, moist mucus membranes Neck: supple Lungs: clear to auscultation bilaterally Heart: regular rate and rhythm, no murmurs Abd: soft, non-tender, non-distended : no flank tenderness. urine is dark tea-colored Ext: no edema, R AKA Skin: warm/well-perfused Neuro: alert and oriented x3, no focal findings Psych: appropriate affect Objective Data Labs CBC & Chem 7: 02/21/21 05:14 02/22/21 06:02 Labs: Laboratory Results - last 24 hr 02/21/21 02/21/21 02/22/21 15:58 19:57 06:02 Sodium 140 Potassium 3.8 Chloride 99 Carbon Dioxide 35 H Anion Gap 10 L BUN 15 Creatinine 0.69 Estim Creat Clear Calc 108.9 Estimated GFR > 60 POC Glucose 244 H 179 H Random Glucose 240 H D Calcium 8.1 L Total Creatine Kinase 20114 H 02/22/21 02/22/21 06:52 08:52 Sodium Potassium Chloride Carbon Dioxide Anion Gap BUN Creatinine Estim Creat Clear Calc Estimated GFR POC Glucose 217 H Random Glucose Calcium Total Creatine Kinase 00650 H Assessment & Plan Time Spent With Patient Time: Rhabdomyolysis Renal func is normal Avoid HMGCOA/ Fibrates IVF - NS No need for IV bicarb Thx Total time spent is greater than 50% in coordination of care (as documented) at patient's floor/unit and/or counseling patient: Procedures Date of Service Date of Service: 02/22/21 Progress Note: Quality Stroke Does the patient have a stroke diagnosis?: No
--- NOTE | 2021-02-22 14:58 | PC.NURSE ---
Skin assessment completed today. Pt. has well healed left AKA. No other skin issues noted.
--- NOTE | 2021-02-22 15:05 | P.PNIM_ITS ---
Subjective Subjective Date of Service: 02/22/21 Interval History: history taken in Tanzanian from the patient no complaints RLE weakness/cramping improved no nausea/vomiting Physical Exam Vital Signs: Vital Signs: Last Vital Signs Temp 97.8 F 02/22/21 11:25 Pulse 85 02/22/21 11:25 Resp 19 02/22/21 11:25 BP 131/70 02/22/21 11:25 Pulse Ox 98 02/22/21 11:25 Body Mass Index 29.7 Gen: in no acute distress HEENT: sclera anicteric, moist mucus membranes Neck: supple Lungs: clear to auscultation bilaterally Heart: regular rate and rhythm, no murmurs Abd: soft, non-tender, non-distended : no flank tenderness Ext: no edema, L AKA Skin: warm/well-perfused Neuro: alert and oriented x3, no focal findings Psych: appropriate affect Objective Data Current Medications Generic Name Dose Route Start Last Admin Trade Name Freq PRN Reason Stop Dose Admin Acetaminophen 650 mg 02/20/21 17:22 02/21/21 14:21 Acetaminophen 325 Mg Tablet PO 650 mg Q6H PRN Administration Pain, Mild (Pain Scale 1-3) Aspirin 81 mg 02/21/21 09:00 02/22/21 07:56 Aspirin Enteric Coated 81 Mg Tablet.Dr PO 81 mg DAILY ROSELYN Administration Enoxaparin Sodium 40 mg 02/20/21 20:00 02/21/21 21:43 Enoxaparin Sodium 40 Mg/0.4 Ml Syringe SUBCUT 40 mg Q24H ROSELYN Administration Gabapentin 100 mg 02/20/21 21:00 02/22/21 07:56 Gabapentin 100 Mg Capsule PO 100 mg TID ROSELYN Administration Sodium Chloride 1,000 mls @ 125 mls/hr 02/22/21 08:00 02/22/21 08:05 Ns IVCONT 125 mls/hr .Q8H ROSELYN Administration Insulin Human Lispro 0 unit 02/20/21 21:00 02/22/21 12:02 Insulin Lispro 100 Unit/Ml 3 Ml Vial SUBCUT Not Given QIDACHS [facility] Protocol Levothyroxine Sodium 200 mcg 02/21/21 06:00 02/22/21 05:45 Levothyroxine Sodium 200 Mcg Tablet PO 200 mcg DAILY@0600 ROSELYN Administration Levothyroxine Sodium 50 mcg 02/21/21 06:00 02/22/21 05:45 Levothyroxine Sodium 50 Mcg Tablet PO 50 mcg DAILY@0600 [facility] Administration Omeprazole 40 mg 02/21/21 06:00 02/22/21 05:45 Omeprazole 40 Mg Capsule. PO 40 mg DAILY@0600 [facility] Administration Ondansetron HCl 4 mg 02/20/21 17:22 Ondansetron Hcl 4 Mg/2 Ml Vial IVPUSH Q8H PRN Nausea and Vomiting Sodium Chloride 3 ml 02/21/21 00:00 02/22/21 07:56 0.9 % Sodium Chloride Flush 3 Ml Syringe IVFLUSH 3 ml QSHIFT [facility] Administration Labs CBC & Chem 7: 02/21/21 05:14 02/22/21 06:02 Labs: Laboratory Results - last 24 hr 02/21/21 02/21/21 02/22/21 15:58 19:57 06:02 Sodium 140 Potassium 3.8 Chloride 99 Carbon Dioxide 35 H Anion Gap 10 L BUN 15 Creatinine 0.69 Estim Creat Clear Calc 108.9 Estimated GFR > 60 POC Glucose 244 H 179 H Random Glucose 240 H D Calcium 8.1 L Total Creatine Kinase 01120 H 02/22/21 02/22/21 06:52 08:52 Sodium Potassium Chloride Carbon Dioxide Anion Gap BUN Creatinine Estim Creat Clear Calc Estimated GFR POC Glucose 217 H Random Glucose Calcium Total Creatine Kinase 41993 H Quality Stroke Does the patient have a stroke diagnosis?: No VTE Prior VTE?: No VTE Risk Level:: Medical - moderate - high VTE Device Contraindication: N/A - Device Ordered VTE Drug Contraindication: N/A - Med Ordered Assessment and Plan (1) Rhabdomyolysis: Status: Acute Assessment and Plan: hospital d#3 65yo M with CKD3, anemia of CKD, hypothyroidism, HLD, DM2, prior COVID-19 pneumonia not requiring hospitalization, and LLE AKA presenting with dark urine and RLE cramping/weakness admitted for severe rhabdomyolysis # rhabdomyolysis - switch from alkaline to saline diuresis, Nephrology following, monitor CMP + CPK - LFTs and troponins elevated due to cross-reactivity with skeletal muscle. - likely due to statin + fenofibrate; discontinued [also possibly pioglitazone] # CKD3 - SCr at baseline, monitor closely + avoid nephrotoxins # hypothyroidism - continue LT4 # DM2 - well-controlled with A1c of 6.5 on 02/05/21. Correction-dose lispro alone; hold MTF, GPZ, and pioglitazone. # VTE ppx - LMWH
[2021-02-22 15:12] VITALS: BP 128/78; PULSE 82; RESP 18; TEMP 36.2; O2SAT 97
[2021-02-22 16:03] LABS: Glucose, Whole Blood 139 mg/dL (60-115)
[2021-02-22 16:03] LABS: Glucose, Whole Blood 289 mg/dL (60-115)
[2021-02-22 19:12] VITALS: BP 147/71; PULSE 71; RESP 17; TEMP 36.2; O2SAT 97
[2021-02-22 19:56] LABS: Glucose, Whole Blood 201 mg/dL (60-115)
[2021-02-22] MEDS: Enoxaparin Sodium 40 MG/0.4 ML SYRINGE SUBCUT (22:18)
[2021-02-22 23:08] VITALS: BP 128/64; PULSE 93; RESP 18; TEMP 37; O2SAT 98
[2021-02-23] VITALS (7 sets, daily range): BP systolic 143–166; BP diastolic 63–78; PULSE 65–76; RESP 17–20; TEMP 36.1–36.7; O2SAT 97–99
[2021-02-23] MEDS: 0.9 % Sodium Chloride 1,000 ML 125 ML IVCONT ×4 (00:51→23:25)
[2021-02-23] MEDS: Omeprazole 40 MG CAPSULE.DR PO (05:50)
[2021-02-23] MEDS: Levothyroxine Sodium 50 MCG TABLET PO (05:50)
[2021-02-23] MEDS: Levothyroxine Sodium 200 MCG TABLET PO (05:50)
[2021-02-23 07:25] LABS: Glucose, Whole Blood 182 mg/dL (60-115)
[2021-02-23 07:33] LABS: Alanine Aminotransferase 393 U/L (0-40); Albumin Level 2.3 g/dL (3.5-5.0); Alkaline Phosphatase 79 U/L (39-117); Anion Gap 11 (12-20); Aspartate Amino Transferase 575 U/L (5-37); Bilirubin Direct 0.4 mg/dL (0.0-0.5); Bilirubin Total 0.6 mg/dL (0.0-1.0); Blood Urea Nitrogen 16 mg/dL (9-16); Calcium 8.2 mg/dL (8.4-10.2); Carbon Dioxide 24 mmol/L (22-29); Chloride 111 mmol/L (96-108); Creatinine Clr Calc Pharmacy 127.3; Estimated Glomerular Filt Rate > 60; Glucose Random 183 mg/dL (60-115); Potassium 4.3 mmol/L (3.3-5.1); Sodium 142 mmol/L (135-145)
[2021-02-23] MEDS: Insulin Lispro 100 UNIT/ML 3 ML VIAL SUBCUT ×4 (08:21→21:16)
[2021-02-23] MEDS: Acetaminophen 325 MG TABLET 650 MG PO (08:22)
[2021-02-23] MEDS: Gabapentin 100 MG CAPSULE PO ×3 (08:22→21:16)
[2021-02-23] MEDS: Aspirin Enteric Coated 81 MG TABLET.DR PO (08:22)
--- NOTE | 2021-02-23 11:10 | MHC.CM.PN ---
Per ROUNDS discussion, Patient is not yet medically cleared for dc . PT is recommending STR and a referral has been made to [facility] facility- [facility]. CM will follow for possible need to adjust the dc plan.
[2021-02-23 11:41] LABS: Glucose, Whole Blood 235 mg/dL (60-115)
--- NOTE | 2021-02-23 12:22 | P.PNNP_ITS ---
Subjective Subjective Date of Service: 02/23/21 Interval history: history taken in [place] from the patient no complaints Pt with improved CPK Physical Exam Vital Signs: Vital Signs: Last Vital Signs Temp 97.0 F 02/23/21 11:09 Pulse 67 02/23/21 11:09 Resp 18 02/23/21 11:09 BP 147/63 H 02/23/21 11:09 Pulse Ox 98 02/23/21 11:09 Body Mass Index 29.7 Gen: in no acute distress HEENT: sclera anicteric, moist mucus membranes Neck: supple Lungs: clear to auscultation bilaterally Heart: regular rate and rhythm, no murmurs Abd: soft, non-tender, non-distended : no flank tenderness Ext: no edema, L AKA Skin: warm/well-perfused Neuro: alert and oriented x3, no focal findings Psych: appropriate affect Objective Data Labs CBC & Chem 7: 02/21/21 05:14 02/23/21 06:05 Labs: Laboratory Results - last 24 hr 02/22/21 02/22/21 02/22/21 10:59 15:59 16:31 Sodium Potassium Chloride Carbon Dioxide Anion Gap BUN Creatinine Estim Creat Clear Calc Estimated GFR POC Glucose 139 H 289 H Random Glucose Calcium Total Bilirubin Direct Bilirubin AST ALT Alkaline Phosphatase Total Creatine Kinase 32818 H Total Protein Albumin 02/22/21 02/23/21 02/23/21 19:44 06:05 07:21 Sodium 142 Potassium 4.3 Chloride 111 H Carbon Dioxide 24 Anion Gap 11 L BUN 16 Creatinine 0.59 Estim Creat Clear Calc 127.3 Estimated GFR > 60 POC Glucose 201 H 182 H Random Glucose 183 H Calcium 8.2 L Total Bilirubin 0.6 Direct Bilirubin 0.4 AST 575 H ALT 393 H Alkaline Phosphatase 79 Total Creatine Kinase 04870 H D Total Protein 4.0 L Albumin 2.3 L 02/23/21 11:31 Sodium Potassium Chloride Carbon Dioxide Anion Gap BUN Creatinine Estim Creat Clear Calc Estimated GFR POC Glucose 235 H Random Glucose Calcium Total Bilirubin Direct Bilirubin AST ALT Alkaline Phosphatase Total Creatine Kinase Total Protein Albumin Assessment & Plan Time Spent With Patient Time: Avoid HMGCOA/ Fibrates IVF - NS No need for IV bicarb- Continue IV NS Thx Total time spent is greater than 50% in coordination of care (as documented) at patient's floor/unit and/or counseling patient: Time with patient: less than 15 minutes Procedures Date of Service Date of Service: 02/23/21 Progress Note: Quality Stroke Does the patient have a stroke diagnosis?: No
--- NOTE | 2021-02-23 15:53 | P.PNIM_ITS ---
Subjective Subjective Date of Service: 02/23/21 Interval History: history taken in [place] from the patient no complaints Physical Exam Vital Signs: Vital Signs: Last Vital Signs Temp 97.8 F 02/23/21 15:34 Pulse 65 02/23/21 15:34 Resp 18 02/23/21 15:34 BP 147/70 H 02/23/21 15:34 Pulse Ox 99 02/23/21 15:34 Body Mass Index 29.7 Gen: in no acute distress HEENT: sclera anicteric, moist mucus membranes Neck: supple Lungs: clear to auscultation bilaterally Heart: regular rate and rhythm, no murmurs Abd: soft, non-tender, non-distended : no flank tenderness Ext: no edema, L AKA Skin: warm/well-perfused Neuro: alert and oriented x3, no focal findings Psych: appropriate affect Objective Data Current Medications Generic Name Dose Route Start Last Admin Trade Name Freq PRN Reason Stop Dose Admin Acetaminophen 650 mg 02/20/21 17:22 02/23/21 08:22 Acetaminophen 325 Mg Tablet PO 650 mg Q6H PRN Administration Pain, Mild (Pain Scale 1-3) Aspirin 81 mg 02/21/21 09:00 02/23/21 08:22 Aspirin Enteric Coated 81 Mg Tablet.Dr PO 81 mg DAILY ROSELYN Administration Enoxaparin Sodium 40 mg 02/20/21 20:00 02/22/21 22:18 Enoxaparin Sodium 40 Mg/0.4 Ml Syringe SUBCUT 40 mg Q24H ROSELYN Administration Gabapentin 100 mg 02/20/21 21:00 02/23/21 15:41 Gabapentin 100 Mg Capsule PO 100 mg TID ROSELYN Administration Sodium Chloride 1,000 mls @ 125 mls/hr 02/22/21 08:00 02/23/21 15:42 Ns IVCONT 125 mls/hr .Q8H ROSELYN Administration Insulin Human Lispro 0 unit 02/20/21 21:00 02/23/21 11:50 Insulin Lispro 100 Unit/Ml 3 Ml Vial SUBCUT 4 unit QIDACHS ROSELYN Administration Protocol Levothyroxine Sodium 200 mcg 02/21/21 06:00 02/23/21 05:50 Levothyroxine Sodium 200 Mcg Tablet PO 200 mcg DAILY@0600 ROSELYN Administration Levothyroxine Sodium 50 mcg 02/21/21 06:00 02/23/21 05:50 Levothyroxine Sodium 50 Mcg Tablet PO 50 mcg DAILY@0600 [facility] Administration Omeprazole 40 mg 02/21/21 06:00 02/23/21 05:50 Omeprazole 40 Mg Capsule.Dr PO 40 mg DAILY@0600 [facility] Administration Ondansetron HCl 4 mg 02/20/21 17:22 Ondansetron Hcl 4 Mg/2 Ml Vial IVPUSH Q8H PRN Nausea and Vomiting Sodium Chloride 3 ml 02/21/21 00:00 02/23/21 15:41 0.9 % Sodium Chloride Flush 3 Ml Syringe IVFLUSH Not Given QSHIFT [facility] Labs CBC & Chem 7: 02/21/21 05:14 02/23/21 06:05 Labs: Laboratory Results - last 24 hr 02/22/21 02/22/21 02/22/21 10:59 15:59 16:31 Sodium Potassium Chloride Carbon Dioxide Anion Gap BUN Creatinine Estim Creat Clear Calc Estimated GFR POC Glucose 139 H 289 H Random Glucose Calcium Total Bilirubin Direct Bilirubin AST ALT Alkaline Phosphatase Total Creatine Kinase 32690 H Total Protein Albumin 02/22/21 02/23/21 02/23/21 19:44 06:05 07:21 Sodium 142 Potassium 4.3 Chloride 111 H Carbon Dioxide 24 Anion Gap 11 L BUN 16 Creatinine 0.59 Estim Creat Clear Calc 127.3 Estimated GFR > 60 POC Glucose 201 H 182 H Random Glucose 183 H Calcium 8.2 L Total Bilirubin 0.6 Direct Bilirubin 0.4 AST 575 H ALT 393 H Alkaline Phosphatase 79 Total Creatine Kinase 67406 H D Total Protein 4.0 L Albumin 2.3 L 02/23/21 11:31 Sodium Potassium Chloride Carbon Dioxide Anion Gap BUN Creatinine Estim Creat Clear Calc Estimated GFR POC Glucose 235 H Random Glucose Calcium Total Bilirubin Direct Bilirubin AST ALT Alkaline Phosphatase Total Creatine Kinase Total Protein Albumin Quality Stroke Does the patient have a stroke diagnosis?: No VTE Prior VTE?: No VTE Risk Level:: Medical - moderate - high VTE Device Contraindication: N/A - Device Ordered VTE Drug Contraindication: N/A - Med Ordered Assessment and Plan (1) Rhabdomyolysis: Status: Acute Assessment and Plan: hospital d#4 65yo M with CKD3, anemia of CKD, hypothyroidism, HLD, DM2, prior COVID-19 pneumonia not requiring hospitalization, and LLE AKA presenting with dark urine and RLE cramping/weakness admitted for severe rhabdomyolysis # rhabdomyolysis - continue saline diuresis, Nephrology following, monitor BMP + CPK - LFTs and troponins elevated due to cross-reactivity with skeletal muscle. - likely due to statin + fenofibrate; discontinued [also possibly pioglitazone] # CKD3 - SCr at baseline, monitor closely + avoid nephrotoxins # hypothyroidism - continue LT4 # DM2 - well-controlled with A1c of 6.5 on 02/05/21. Correction-dose lispro alone; hold MTF, GPZ, and pioglitazone. # VTE ppx - LMWH # dispo - PT eval- STR recommended
[2021-02-23 16:42] LABS: Glucose, Whole Blood 197 mg/dL (60-115)
[2021-02-23 20:45] LABS: Glucose, Whole Blood 160 mg/dL (60-115)
[2021-02-23] MEDS: Enoxaparin Sodium 40 MG/0.4 ML SYRINGE SUBCUT (21:16)
--- NOTE | 2021-02-23 22:52 | PC.NURSE ---
Ended up leaving paperwork in the ED and threatened to leave AMA if we didn't check for it. Also asked if he could take a shower. I asked overnight hospitalist who suggested the morning but pt. stated that he'll be going against doctors orders and still showering anyway. Hospitalist was notified.
[2021-02-24 03:37] VITALS: BP 130/66; PULSE 76; RESP 18; TEMP 36.3; O2SAT 97
[2021-02-24] MEDS: Levothyroxine Sodium 50 MCG TABLET PO (06:17)
[2021-02-24] MEDS: Omeprazole 40 MG CAPSULE.DR PO (06:17)
[2021-02-24] MEDS: Levothyroxine Sodium 200 MCG TABLET PO (06:17)
[2021-02-24 07:21] LABS: Glucose, Whole Blood 126 mg/dL (60-115)
[2021-02-24 07:31] LABS: Anion Gap 7 (12-20); Blood Urea Nitrogen 11 mg/dL (9-16); Calcium 8.3 mg/dL (8.4-10.2); Carbon Dioxide 23 mmol/L (22-29); Chloride 117 mmol/L (96-108); Creatinine Clr Calc Pharmacy 141.8; Estimated Glomerular Filt Rate > 60; Glucose Random 129 mg/dL (60-115); Potassium 3.9 mmol/L (3.3-5.1); Sodium 143 mmol/L (135-145)
[2021-02-24 07:43] VITALS: BP 159/74; PULSE 69; RESP 18; TEMP 36.7; O2SAT 97
[2021-02-24] MEDS: Gabapentin 100 MG CAPSULE PO ×3 (08:25→19:30)
[2021-02-24] MEDS: Aspirin Enteric Coated 81 MG TABLET.DR PO (08:25)
[2021-02-24] MEDS: 0.9 % Sodium Chloride 1,000 ML 125 ML IVCONT ×2 (08:25→16:51)
[2021-02-24 11:02] VITALS: BP 151/72; PULSE 63; RESP 18; TEMP 36.5; O2SAT 98
[2021-02-24 11:02] LABS: Glucose, Whole Blood 259 mg/dL (60-115)
[2021-02-24] MEDS: Insulin Lispro 100 UNIT/ML 3 ML VIAL SUBCUT (12:04)
--- NOTE | 2021-02-24 12:26 | PM.PNNEP ---
Subjective Subjective Date of Service: 02/24/21 Interval history: history taken in [place] from the patient no complaints Physical Exam Vital Signs: Vital Signs: Last Vital Signs Temp 97.7 F 02/24/21 11:02 Pulse 63 02/24/21 11:02 Resp 18 02/24/21 11:02 BP 151/72 H 02/24/21 11:02 Pulse Ox 98 02/24/21 11:02 Body Mass Index 29.7 Const: General: cooperative, healthy appearing and no acute distress Orientation/consciousness: patient oriented x3 Limitations: no limitations HENMT: Head: Yes normal to inspection Ears: hearing grossly normal bilaterally General nose exam: Normal external nose present Face and sinus: Yes normal facial exam Eyes: General: appearance normal, both eyes and all related structures EOM: EOMs intact bilaterally Neck: Neck: Yes normal visual inspection Resp: Effort & Inspection: normal respiratory effort Auscultation: clear to auscultation bilaterally and no wheezes Cardio: Rate: regular rate Heart sounds: S1 normal heart sound present and S2 normal heart sound present GI: Inspection: Yes normal to inspection Palpation (GI): Soft to palpation, nontender, no guarding and not rigid Skin: Rashes: no rashes Wounds: no wounds Neuro: General: patient oriented x3, tone normal, moves all extremities and CN's II-XI intact bilaterally Cranial nerves: Yes CN's II-XII intact bilaterally Cognition (Neuro): normal cognition Speech: No Abnormal speech present Coordination: [id number] test normal Romberg Test: Negative Extrem: General: Yes normal to inspection Objective Data Labs CBC & Chem 7: 02/21/21 05:14 02/24/21 06:15 Labs: Laboratory Results - last 24 hr 02/23/21 02/23/21 02/24/21 16:26 20:39 06:15 Sodium 143 Potassium 3.9 Chloride 117 H Carbon Dioxide 23 Anion Gap 7 L BUN 11 Creatinine 0.53 Estim Creat Clear Calc 141.8 Estimated GFR > 60 POC Glucose 197 H 160 H Random Glucose 129 H Calcium 8.3 L Total Creatine Kinase 02/24/21 02/24/21 02/24/21 06:15 07:13 10:54 Sodium Potassium Chloride Carbon Dioxide Anion Gap BUN Creatinine Estim Creat Clear Calc Estimated GFR POC Glucose 126 H 259 H Random Glucose Calcium Total Creatine Kinase 6725 H D Assessment & Plan Assessment and plan (1) Rhabdomyolysis: Status: Acute Assessment and Plan: Rhabdo - better Keep pt hydrated Time Spent With Patient Time: Total time spent is greater than 50% in coordination of care (as documented) at patient's floor/unit and/or counseling patient: Procedures Date of Service Date of Service: 02/24/21 Progress Note: Quality Stroke Does the patient have a stroke diagnosis?: No
--- NOTE | 2021-02-24 12:31 | P.PNIM_ITS ---
Subjective Subjective Date of Service: 02/24/21 Interval History: history taken in [place] no complaints would like to go to [facility] Physical Exam Vital Signs: Vital Signs: Last Vital Signs Temp 97.7 F 02/24/21 11:02 Pulse 63 02/24/21 11:02 Resp 18 02/24/21 11:02 BP 151/72 H 02/24/21 11:02 Pulse Ox 98 02/24/21 11:02 Body Mass Index 29.7 Gen: in no acute distress HEENT: sclera anicteric, moist mucus membranes Neck: supple Lungs: clear to auscultation bilaterally Heart: regular rate and rhythm, no murmurs Abd: soft, non-tender, non-distended : no flank tenderness Ext: no edema, L AKA Skin: warm/well-perfused Neuro: alert and oriented x3, no focal findings Psych: appropriate affect Objective Data Current Medications Generic Name Dose Route Start Last Admin Trade Name Freq PRN Reason Stop Dose Admin Acetaminophen 650 mg 02/20/21 17:22 02/23/21 08:22 Acetaminophen 325 Mg Tablet PO 650 mg Q6H PRN Administration Pain, Mild (Pain Scale 1-3) Aspirin 81 mg 02/21/21 09:00 02/24/21 08:25 Aspirin Enteric Coated 81 Mg Tablet.Dr PO 81 mg DAILY ROSELYN Administration Enoxaparin Sodium 40 mg 02/20/21 20:00 02/23/21 21:16 Enoxaparin Sodium 40 Mg/0.4 Ml Syringe SUBCUT 40 mg Q24H ROSELYN Administration Gabapentin 100 mg 02/20/21 21:00 02/24/21 08:25 Gabapentin 100 Mg Capsule PO 100 mg TID ROSELYN Administration Sodium Chloride 1,000 mls @ 125 mls/hr 02/22/21 08:00 02/24/21 08:25 Ns IVCONT 125 mls/hr .Q8H ROSELYN Administration Insulin Human Lispro 0 unit 02/20/21 21:00 02/24/21 12:04 Insulin Lispro 100 Unit/Ml 3 Ml Vial SUBCUT 6 unit QIDACHS [facility] Administration Protocol Levothyroxine Sodium 200 mcg 02/21/21 06:00 02/24/21 06:17 Levothyroxine Sodium 200 Mcg Tablet PO 200 mcg DAILY@0600 ROSELYN Administration Levothyroxine Sodium 50 mcg 02/21/21 06:00 02/24/21 06:17 Levothyroxine Sodium 50 Mcg Tablet PO 50 mcg DAILY@0600 [facility] Administration Omeprazole 40 mg 02/21/21 06:00 02/24/21 06:17 Omeprazole 40 Mg Capsule. PO 40 mg DAILY@0600 [facility] Administration Ondansetron HCl 4 mg 02/20/21 17:22 Ondansetron Hcl 4 Mg/2 Ml Vial IVPUSH Q8H PRN Nausea and Vomiting Sodium Chloride 3 ml 02/21/21 00:00 02/24/21 07:43 0.9 % Sodium Chloride Flush 3 Ml Syringe IVFLUSH Not Given QSHIFT [facility] Labs CBC & Chem 7: 02/21/21 05:14 02/24/21 06:15 Labs: Laboratory Results - last 24 hr 02/23/21 02/23/21 02/24/21 16:26 20:39 06:15 Sodium 143 Potassium 3.9 Chloride 117 H Carbon Dioxide 23 Anion Gap 7 L BUN 11 Creatinine 0.53 Estim Creat Clear Calc 141.8 Estimated GFR > 60 POC Glucose 197 H 160 H Random Glucose 129 H Calcium 8.3 L Total Creatine Kinase 02/24/21 02/24/21 02/24/21 06:15 07:13 10:54 Sodium Potassium Chloride Carbon Dioxide Anion Gap BUN Creatinine Estim Creat Clear Calc Estimated GFR POC Glucose 126 H 259 H Random Glucose Calcium Total Creatine Kinase 6725 H D Quality Stroke Does the patient have a stroke diagnosis?: No VTE Prior VTE?: No VTE Risk Level:: Medical - moderate - high VTE Device Contraindication: N/A - Device Ordered VTE Drug Contraindication: N/A - Med Ordered Assessment and Plan (1) Rhabdomyolysis: Status: Acute Assessment and Plan: hospital d#5 65yo M with CKD3, anemia of CKD, hypothyroidism, HLD, DM2, prior COVID-19 pneumo ryanne not requiring hospitalization, and LLE AKA presenting with dark urine and RLE cramping/weakness admitted for severe rhabdomyolysis # rhabdomyolysis - continue saline diuresis, Nephrology following, monitor BMP + CPK - LFTs and troponins elevated due to cross-reactivity with skeletal muscle - likely due to statin + fenofibrate; discontinued [also possibly pioglitazone] # CKD3 - SCr at baseline, monitor closely + avoid nephrotoxins # hypothyroidism - continue LT4 # DM2 - well-controlled with A1c of 6.5 on 02/05/21. Correction-dose lispro alone; hold MTF, GPZ, and pioglitazone. # VTE ppx - LMWH # dispo - PT eval- STR recommended
[2021-02-24 15:25] VITALS: BP 171/77; PULSE 61; RESP 18; TEMP 36.3; O2SAT 99
[2021-02-24 16:05] LABS: Glucose, Whole Blood 87 mg/dL (60-115)
[2021-02-24 19:10] VITALS: BP 150/68; PULSE 82; RESP 18; TEMP 36.7; O2SAT 99
[2021-02-24] MEDS: Enoxaparin Sodium 40 MG/0.4 ML SYRINGE SUBCUT (19:30)
[2021-02-24] MEDS: 0.9 % Sodium Chloride Flush 3 ML SYRINGE IVFLUSH (19:31)
[2021-02-24 19:54] LABS: Glucose, Whole Blood 149 mg/dL (60-115)
[2021-02-24 20:24] LABS: Glucose, Whole Blood 174 mg/dL (60-115)
[2021-02-24 23:10] VITALS: BP 158/72; PULSE 80; RESP 17; TEMP 36.5; O2SAT 97
[2021-02-25] MEDS: 0.9 % Sodium Chloride 1,000 ML 125 ML IVCONT ×2 (01:55→09:16)
[2021-02-25 02:58] VITALS: BP 166/71; PULSE 75; RESP 17; TEMP 36.5; O2SAT 97
[2021-02-25] MEDS: Omeprazole 40 MG CAPSULE.DR PO (05:04)
[2021-02-25] MEDS: Levothyroxine Sodium 50 MCG TABLET PO (05:04)
[2021-02-25] MEDS: Levothyroxine Sodium 200 MCG TABLET PO (05:04)
[2021-02-25 07:27] VITALS: BP 153/69; PULSE 73; RESP 20; TEMP 36.3; O2SAT 97
[2021-02-25 07:27] LABS: Glucose, Whole Blood 146 mg/dL (60-115)
[2021-02-25 07:39] LABS: Anion Gap 9 (12-20); Blood Urea Nitrogen 11 mg/dL (9-16); Calcium 8.4 mg/dL (8.4-10.2); Carbon Dioxide 21 mmol/L (22-29); Chloride 116 mmol/L (96-108); Creatinine Clr Calc Pharmacy 139.1; Estimated Glomerular Filt Rate > 60; Glucose Random 172 mg/dL (60-115); Potassium 3.9 mmol/L (3.3-5.1); Sodium 142 mmol/L (135-145)
[2021-02-25 08:51] LABS: Alanine Aminotransferase 321 U/L (0-40); Albumin Level 2.2 g/dL (3.5-5.0); Alkaline Phosphatase 93 U/L (39-117); Aspartate Amino Transferase 214 U/L (5-37); Bilirubin Direct 0.3 mg/dL (0.0-0.5); Bilirubin Total 0.4 mg/dL (0.0-1.0)
[2021-02-25] MEDS: Gabapentin 100 MG CAPSULE PO ×2 (09:15→15:04)
[2021-02-25] MEDS: Aspirin Enteric Coated 81 MG TABLET.DR PO (09:15)
[2021-02-25 10:15] VITALS: BP 153/69; PULSE 73; O2SAT 97
[2021-02-25 11:14] LABS: Glucose, Whole Blood 266 mg/dL (60-115)
[2021-02-25] MEDS: Insulin Lispro 100 UNIT/ML 3 ML VIAL SUBCUT (11:20)
[2021-02-25 11:32] VITALS: BP 174/75; PULSE 66; RESP 20; TEMP 36.4; O2SAT 98
--- NOTE | 2021-02-25 12:52 | PM.DS ---
DS: Providers Provider Date of Service: 02/25/21 Date of admission: 02/20/21 17:22 Primary care physician: Elisha Adams MD Consults: 02/20/21 17:22 Consult to Nephrology Routine Consulting Provider: [facility] Reason for consultation: rhabdomyolysis DS: Diagnosis Discharge Diagnosis (1) Rhabdomyolysis: Status: Acute (2) CKD stage 3 due to type 2 diabetes mellitus: Status: Acute DS: Medications Discharge Medications Home Medications: Home Medications Medication Instructions Recorded Confirmed pioglitazone 45 mg PO DAILY 06/11/20 02/20/21 alcohol swabs 0 pad TOPICAL TID 06/30/20 02/07/21 blood sugar diagnostic #10 ea 06/30/20 02/07/21 lancets 28 gauge #100 ea 06/30/20 02/07/21 omeprazole 40 mg PO DAILY 02/20/21 02/20/21 Previous Rx's Medication Instructions Recorded pen needle, diabetic 31 gauge x #50 ea 10/12/2001/16 walker #1 ea 10/19/20 aspirin 81 mg tablet,delayed 81 mg PO DAILY 90 Days #90 tab 10/28/20 release gabapentin 100 mg capsule 100 mg PO TID 30 Days #90 cap 10/28/20 glipizide 10 mg tablet, extended 10 mg PO DAILY 90 Days #90 tab 10/28/20 release 24 hr levothyroxine 200 mcg tablet 200 mcg PO DAILY 90 Days #90 tab 11/02/20 levothyroxine 50 mcg tablet 50 mcg PO DAILY 90 Days #90 tab 11/02/20 wheelchair #1 ea 11/08/20 metformin 500 mg tablet,extended 500 mg PO DAILY 90 Days #90 tab 12/21/20 release 24 hr DS: Summary Hospital Course Hospital Course: from my admission H+P, 02/20/21: 65yo M with CKD3, anemia of CKD, hypothyroidism, HLD, DM2, and COVID-19 pneumonia not requiring hospitalization. His left leg is amputated above the knee. He presents today with a 1-day history of dark coffee-colored urine and a week or so of weakness and cramping in the right leg. In the ED, he was noted to have rhabdomyolysis with CPK 93977 but a normal serum creatinine of 0.85. He was started on a bicarbonate infusion and admission was requested. He last saw his PCP, Dr Carmichael, on 02/07/21; at that visit, she discontinued atorvastatin after noting that the patient had transaminitis with AST of 969 and ALT of 582 on prior lab panel on 12/13/20. Today's AST is 1001 and ALT 357. He did stop the atorvastatin but remains on fenofibrate. He denies fever, dyspnea, cough, chest pain, nausea, vomiting, or abdominal pain. The patient was admitted to the [facility] and Nephrology was consulted. He underwent alkaline diuresis, then saline diuresis as his CPK came down steadily. Serum creatinine remained normal. LFT and troponin elevations were due to cross-reactivity with skeletal muscle. Likely etiology of the rhabdomyolysis is medication effect from statin and fenofibrate; he was counseled to avoid all statins and fibrates [pharmacologic-grade omega-3 fatty acids could be considered for lipid lowering therapy]. Due to weakness and deconditioning, he was discharged to short-term rehabilitation at a SNF. Oral hydration was encouraged and he should repeat labs [BMP and CPK] in 1 week and then follow up with Nephrology. CPK was 3716 at discharge with serum creatinine of 0.54. Time Spent with Patient Time attestation: Total time spent providing and/or coordinating discharge services: 40 Discharge coordination time: Greater than 30 minutes Quality: Stroke Does the patient have a stroke diagnosis?: No Physical Exam Vital Signs: Vital Signs: Last Vital Signs Temp 97.6 F 02/25/21 11:32 Pulse 66 02/25/21 11:32 Resp 20 02/25/21 11:32 BP 174/75 H 02/25/21 11:32 Pulse Ox 98 02/25/21 11:32 Body Mass Index 29.7 Gen: in no acute distress HEENT: sclera anicteric, moist mucus membranes Neck: supple Lungs: clear to auscultation bilaterally Heart: regular rate and rhythm, no murmurs Abd: soft, non-tender, non-distended : no flank tenderness Ext: no edema, L AKA Skin: warm/well-perfused Neuro: alert and oriented x3, no focal findings Psych: appropriate affect DS: Data Data Completed and Pending Completed studies during hospitalization [Text1]: Laboratory Results WBC 7.7 X10*3/uL (4.8-10.8) 02/21/21 05:14 RBC 3.59 X10*6/uL (4.60-5.80) L 02/21/21 05:14 Hgb 9.9 g/dl (14.0-18.0) L 02/21/21 05:14 Hct 30.1 % (42-52) L 02/21/21 05:14 MCV 83.8 fL (80-98) 02/21/21 05:14 MCH 27.6 pg (27.0-33.0) 02/21/21 05:14 MCHC 32.9 g/dl (31.0-36.0) 02/21/21 05:14 RDW 15.7 % (11.0-16.0) 02/21/21 05:14 Plt Count RURAL SOCIOLOGIST 02/21/21 05:14 MPV Not Reportable 02/21/21 05:14 Immature Gran % (Auto) 0.7 % (0.0-0.4) H 02/21/21 05:14 Neut % (Auto) 67.9 % (45-73) 02/21/21 05:14 Lymph % (Auto) 20.7 % (20-40) 02/21/21 05:14 Holmes % (Auto) 9.4 % (2-11) 02/21/21 05:14 Eos % (Auto) 1.0 % (0-4) 02/21/21 05:14 Baso % (Auto) 0.3 % (0-2) 02/21/21 05:14 Lymph # (Auto) 1.6 X10*3/uL (1.2-4.9) 02/21/21 05:14 Holmes # (Auto) 0.7 X10*3/uL (0.1-1.2) 02/21/21 05:14 Eos # (Auto) 0.1 X10*3/uL (0.0-0.4) 02/21/21 05:14 Baso # (Auto) 0.0 X10*3/uL (0.0-0.2) 02/21/21 05:14 Abs Immat Gran (auto) 0.05 X10*3/uL (0.00-0.03) H 02/21/21 05:14 Absolute Neuts (auto) 5.2 X10*3/uL (2.0-8.3) 02/21/21 05:14 Absolute Nucleated RBC 0.000 X10*3/uL (0.0-0.012) 02/21/21 05:14 Nucleated RBC % (auto) 0.0 /100WBC (0.0-0.2) 02/21/21 05:14 Smear Tech's Comments VERIFIED 02/21/21 05:14 PT 12.8 SEC (10.8-13.0) 02/20/21 13:50 INR 1.1 (0.9-1.1) 02/20/21 13:50 APTT 28.4 SEC (24.1-38.0) 02/20/21 13:50 VBG pH 7.46 (7.32-7.43) H 02/20/21 22:38 VBG pCO2 35 mmHg 02/20/21 22:38 VBG pO2 38 mmHg 02/20/21 22:38 VBG HCO3 25 mmol/L (22-26) 02/20/21 22:38 VBG O2 Saturation 59.0 % 02/20/21 22:38 VBG Base Excess 2.3 mmol/L 02/20/21 22:38 Sodium 142 mmol/L (135-145) 02/25/21 05:40 Potassium 3.9 mmol/L (3.3-5.1) 02/25/21 05:40 Chloride 116 mmol/L (96-108) H 02/25/21 05:40 Carbon Dioxide 21 mmol/L (22-29) L 02/25/21 05:40 Anion Gap 9 (12-20) L 02/25/21 05:40 BUN 11 mg/dL (9-16) 02/25/21 05:40 Creatinine 0.54 mg/dL (0.5-1.4) 02/25/21 05:40 Estim Creat Clear Calc 139.1 02/25/21 05:40 Estimated GFR > 60 02/25/21 05:40 POC Glucose 266 mg/dL (60-115) H 02/25/21 11:03 Random Glucose 172 mg/dL (60-115) H 02/25/21 05:40 Calcium 8.4 mg/dL (8.4-10.2) 02/25/21 05:40 Magnesium 2.2 mg/dL (1.6-2.6) 02/20/21 13:50 Total Bilirubin 0.4 mg/dL (0.0-1.0) 02/25/21 05:40 Direct Bilirubin 0.3 mg/dL (0.0-0.5) 02/25/21 05:40 AST 214 U/L (5-37) H 02/25/21 05:40 ALT 321 U/L (0-40) H 02/25/21 05:40 Alkaline Phosphatase 93 U/L (39-117) 02/25/21 05:40 Total Creatine Kinase 3716 U/L (38-174) H D 02/25/21 05:40 Troponin I High Sens 188.2 ng/L (<3.5-35.0) H* 02/20/21 17:59 Total Protein 4.0 g/dL (6.5-8.0) L 02/25/21 05:40 Albumin 2.2 g/dL (3.5-5.0) L 02/25/21 05:40 Urine Color YELLOW 02/20/21 Unknown Urine Appearance HAZY 02/20/21 Unknown Urine pH 6.0 (5.0-8.0) 02/21/21 04:28 Ur Specific [place] 1.020 (1.005-1.025) 02/20/21 Unknown Urine Protein 2+ MG/DL (NEG-TRACE) H 02/20/21 Unknown Urine Glucose (UA) 250 MG/DL (NEG) H 02/20/21 Unknown Urine Ketones NEG MG/DL (NEG) 02/20/21 Unknown Urine Blood 3+ (NEG) H 02/20/21 Unknown Urine Nitrite NEG (NEG) 02/20/21 Unknown Ur Leukocyte Esterase NEG (NEG) 02/20/21 Unknown Urine RBC 0 /HPF (0) 02/20/21 Unknown Urine WBC 0-2 /HPF (0-4) 02/20/21 Unknown Ur Squamous Epith Cells 2+ /LPF 02/20/21 Unknown Amorphous Sediment 4+ /LPF 02/20/21 Unknown Urine Bacteria NONE /LPF 02/20/21 Unknown Granular Casts 5-9 /LPF 02/20/21 Unknown Urine Opiates Screen Not Detected (Not Detect) 02/20/21 Unknown Ur Barbiturates Screen Not Detected (Not Detect) 02/20/21 Unknown Ur Phencyclidine Scrn Not Detected (Not Detect) 02/20/21 Unknown Ur Amphetamines Screen Not Detected (Not Detect) 02/20/21 Unknown U Benzodiazepines Scrn Not Detected (Not Detect) 02/20/21 Unknown Urine Cocaine Screen Not Detected (Not Detect) 02/20/21 Unknown U Marijuana (THC) Screen Not Detected (Not Detect) 02/20/21 Unknown COVID-19 (JOSE) Negative (Negative) 02/20/21 13:50 COVID-19 Clin Com See Note 02/20/21 13:[address] 02/20/21 12:06 IMPRESSION: No significant findings. No evidence of mass, infarction, hemorrhage or other acute intracranial pathology. Chest X-Ray 02/20/21 12:07 IMPRESSION: No evidence of acute disease. Abdomen Ultrasound 02/20/21 14:33 IMPRESSION: Gallstone with positive GREY sign. Rest of the abdominal ultrasound is unremarkable. Discharge Plan Discharge Patient Disposition: [facility] Discharge Diagnosis: rhabdomyolysis due to medication [statin/fibrate] Referrals: [facility] [Outside] - 1 Week Xavi Hernandez MD [Physician] - 1 Week Elisha Olguin MD [Primary Care Provider] - 1 Week Discharge Medications: Continued (DME) pen needle, diabetic [Comfort EZ Pen [place]] 31 gauge x 5/16 needle See Rx Instructions .ROUTE .MEDSUPPLY Qty: 50 RF: 11 (DME) walker [facility] [place] [facility] See Rx Instructions .ROUTE .MEDSUPPLY Qty: 1 RF: 0 glipizide 10 mg tablet extended release 24hr 10 mg PO DAILY 90 Days Qty: 90 RF: 3 aspirin [Adult Aspirin Regimen] 81 mg tablet,delayed release (DR/EC) 81 mg PO DAILY 90 Days Qty: 90 RF: 3 gabapentin 100 mg capsule 100 mg PO TID 30 Days Qty: 90 RF: 3 levothyroxine 200 mcg tablet 200 mcg PO DAILY 90 Days Qty: 90 RF: 1 levothyroxine [Synthroid] 50 mcg tablet 50 mcg PO DAILY 90 Days Qty: 90 RF: 1 (DME) wheelchair large See Rx Instructions .Route .MEDSUPPLY Qty: 1 RF: 0 metformin 500 mg tablet extended release 24 hr 500 mg PO DAILY 90 Days Qty: 90 RF: 3 pioglitazone 45 mg tablet 45 mg PO DAILY RF: 0 omeprazole 20 mg capsule,delayed release(DR/EC) 40 mg PO DAILY RF: 0 alcohol swabs Pads, Medicated 0 pad topical TID RF: 0 (DME) lancets 28 gauge misc See Rx Instructions ea topical DAILY Qty: 100 RF: 0 (DME) blood sugar diagnostic Strip See Rx Instructions ea Not Applicable DAILY Qty: 10 RF: 0 Discontinued fenofibrate nanocrystallized 145 mg tablet 145 mg PO DAILY 90 Days Qty: 90 RF: 3 atorvastatin 80 mg tablet 1 tab PO BEDTIME RF: 0 Discharge Orders: Discharge Order (Routine); Ordered 02/25/21 Ordered By: Stephen Doran Diet: diabetic diet Activity on Discharge: see meds Stand Alone Forms: Patient Portal Discharge page Other Ambulatory Orders: Basic Metabolic Panel (Routine) Timeframe: 1 Week Facility: [facility] - Location: Laboratory Ordered By: Stephen Doran Creatine Kinase Total (Routine) Timeframe: 1 Week Facility: [facility] - Location: Laboratory Ordered By: Stephen Doran Care Plan Goals: prevention of renal failure from rhabdomyolysis Health Concerns: rhabdomyolysis likely due to medication [statin + fibrate] Plan of Treatment: STOP atorvastatin STOP fenofibrate avoid all statins and fibrates drink plenty of fluids over the next few days recheck labs [basic metabolic panel and CPK, non fasting] in 1 week, then follow up with compliance reviewer to short-term rehabilitation, then f/u with your primary care doctor after d/c from rehab Assessment: as above Patient Instructions: Rhabdomyolysis (DC)
--- NOTE | 2021-02-25 12:53 | MHC.CM.PN ---
Addendum entered by Digna Doss 02/25/21 13:33: CM MET WITH PT WITH THE ASSISTANCE OF [facility] [employer]. PT IS AWARE HE WILL DC TODAY TO [facility] AND CALLED HIS BROTHER ON SPEAKER PHONE WITH CM PRESENT. PTS BROTHER MADE AWARE OF DC PLAN AND TIME AND HE IS ALSO AGREEABLE. Original Note: PT WILL BE CLEARED TO DC TODAY. PTS PREFERRED FACILITY, [facility], IS OFFERING A BED AND ABLE TO TAKE PT AT 1400 HOURS. TRANSPORTATION WILL BE ARRANGED VIA [facility]. CM WILL MEET WITH PT AND CONTACT PTS BROTHER, SAMANTHA, ONCE [facility] IS AVAILABLE.
--- NOTE | 2021-02-25 13:24 | MHC.INPTTRAN ---
oksana diet. Had lge BM today. voiding qs. Denies pain. OOB with max 2 assist. Pivots to chair. Uzbek speaking only. thanks.
[2021-02-25 13:50] LABS: COVID-19 Test Negative (Negative)
== END 2021-02-25 15:40 | disposition skilled nursing facility (03) | DRG 558 ==
LOC: HO.ED 15:32 → HO.EDOVER 17:39 → HO.IMC 20:26
PROVIDERS: Physician Assistant; Admitting Provider Family Medicine; Emergency Provider Emergency Medicine; PCP Internal Medicine; Visit Provider Family Medicine
DX: M62.82 Rhabdomyolysis (principal); E78.5 Hyperlipidemia, unspecified; E03.9 Hypothyroidism, unspecified; I12.9 Hypertensive chronic kidney disease with stage 1 through stage 4 chronic kidney disease, or unspecified chronic kidney disease; E11.22 Type 2 diabetes mellitus with diabetic chronic kidney disease; T46.6X5A Adverse effect of antihyperlipidemic and antiarteriosclerotic drugs, initial encounter; N18.30 Chronic kidney disease, stage 3 unspecified; Y92.9 Unspecified place or not applicable; Z20.822 Contact with and (suspected) exposure to COVID-19; Z86.16 Personal history of COVID-19; Z89.612 Acquired absence of left leg above knee; Z79.82 Long term (current) use of aspirin; Z79.84 Long term (current) use of oral hypoglycemic drugs; Z79.890 Hormone replacement therapy; Z79.899 Other long term (current) drug therapy
CPT/HCPCS: 36415; 70450; 71045; 76700; 80048; 80076; 80307; 81001; 81003; 82550; 82947; 83735; 84484; 85025; 85610; 85730; 87635; 93005; 97162; 97530; 99285; J1650

== ENCOUNTER → 2021-08-23 10:12 | Outpatient (BNVA) | payer MEDICARE, MEDICAID, SELFPAY | PROVIDERS: PCP Internal Medicine; Referring Provider Internal Medicine; Visit Provider Internal Medicine Gastroenterology ==

== ENCOUNTER → 2021-10-13 13:19 | Outpatient (BNVA) | payer MEDICARE, MEDICAID, SELFPAY | PROVIDERS: PCP Internal Medicine; Referring Provider Internal Medicine; Visit Provider Internal Medicine Gastroenterology | DX: R74.01 Elevation of levels of liver transaminase levels (principal); E11.22 Type 2 diabetes mellitus with diabetic chronic kidney disease; N18.30 Chronic kidney disease, stage 3 unspecified | CPT/HCPCS: 99212 ==

== ENCOUNTER 2022-04-11 12:23 | Outpatient (REF) | payer MEDICARE, SELFPAY ==
[2022-04-11 13:32] LABS: Basophils Percent Auto 0.3 % (0-2); Eosinophils Absolute Auto 0.1 X10*3/uL (0.0-0.4); Eosinophils Percent Auto 1.6 % (0-4); Hematocrit 34.1 % (42.0-52.0); Imm Gran Abs Auto 0.03 X10*3/uL (0.00-0.03); Imm Gran Pct Auto 0.5 % (0.0-0.4); Lymphocytes Absolute Auto 2.2 X10*3/uL (1.2-4.9); Lymphocytes Percent Auto 35.9 % (20-40); MANUAL DIFF FLAG SCAN; Mean Corpuscular HGB Conc 32.3 g/dl (31.0-36.0); Mean Corpuscular Hemoglobin 27.2 pg (27.0-33.0); Mean Corpuscular Volume 84.4 fL (80.0-98.0); Monocytes Absolute Auto 0.6 X10*3/uL (0.1-1.2); Monocytes Percent Auto 9.7 % (2-11); Neutrophils Absolute Auto 3.2 x10*3/uL (2.0-8.3); PLT CLUMP 1; Red Blood Count 4.04 X10*6/uL (4.60-5.80); Red Cell Distribution Width 13.8 % (11.0-16.0); SCAN SMEAR FLAG 1
[2022-04-11 13:54] LABS: White Blood Count 6.2 X10*3/uL (4.8-10.8)
[2022-04-11 13:55] LABS: SLIDE REVIEW VERIFIED
[2022-04-11 14:13] LABS: Alanine Aminotransferase 11 U/L (0-40); Albumin Level 3.7 g/dL (3.5-5.0); Alkaline Phosphatase 89 U/L (39-117); Anion Gap 16 (12-20); Aspartate Amino Transferase 15 U/L (5-37); Bilirubin Total 0.6 mg/dL (0.0-1.0); Blood Urea Nitrogen 13 mg/dL (9-16); Calcium 8.9 mg/dL (8.4-10.2); Carbon Dioxide 19 mmol/L (22-29); Chloride 108 mmol/L (96-108); Cholesterol 120 mg/dL; Estimated Glomerular Filt Rate > 60; Glucose Fasting 130 mg/dL (60-99); HDL Cholesterol 33 mg/dL; Iron 95 mcg/dL (45-160); LDL Cholesterol Calculated 65 mg/dl; Percent Iron Saturation 23 % (15-50); Potassium 3.9 mmol/L (3.3-5.1); Sodium 139 mmol/L (135-145); Total Iron Binding Capacity 407 mcg/dL (228-428); Total Protein 6.4 g/dL (6.5-8.0); Triglycerides 114 mg/dL; Unsaturated Iron Binding 312 ug/dL
[2022-04-11 14:17] LABS: Thyroid Stimulating Hormone < 0.01 uIU/mL (0.32-4.0); Vitamin D 25-OH Total 10.8 ng/mL (>30)
[2022-04-11 14:22] LABS: Creatinine Urine 146.49 mg/dL; Microalbum/Creatinine Ratio Ur 13.6 ug/mg cr
[2022-04-11 14:34] LABS: Folate 11.8 ng/mL (> or = 4.0); Vitamin B12 277 pg/mL (200-900)
== END 2022-04-11 12:24 | disposition home or self-care (01) ==
LOC: HO.LAB 12:23
PROVIDERS: PCP Internal Medicine; Visit Provider Internal Medicine
DX: E11.22 Type 2 diabetes mellitus with diabetic chronic kidney disease (principal); N18.30 Chronic kidney disease, stage 3 unspecified; E53.8 Deficiency of other specified B group vitamins; E78.5 Hyperlipidemia, unspecified; E55.9 Vitamin D deficiency, unspecified; E06.3 Autoimmune thyroiditis; D64.9 Anemia, unspecified
CPT/HCPCS: 36415; 80053; 80061; 82043; 82306; 82607; 82746; 83540; 84443; 85025

== ENCOUNTER 2023-05-30 12:26 | Outpatient (AMB) | payer OTHER, MEDICAID, SELFPAY ==
--- NOTE | 2023-05-30 12:31 | MHC.OFFVIS ---
Intake Vital Signs 05/30/23 12:51 Height 5 ft 3 in BMI Reason not done Patient refused/unable BP 154/85 H Blood Pressure Location Lt brachial Position Sitting Pulse 80 Comment Unable to stand on scale LLE amputee Intake Visit Reasons: Follow up acid reflux Intake Note: Patient presents to in office visit today in follow up of GERD. Patient previously seen by Dr. Gonzáles and Dr. Huitron. Patient states he does not know what medications he is taking because he can't read. CC: Reports occasional GERD at night. Denies other GI symptoms. 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 He is referred from [facility], Dr. Hernandez. On 05/11/23 @ 16:41 Callie Orozco Wrote To [facility] (2) FYI- Patient scheduled with [facility] for 05/30/23 @ 1:15 with [facility]. On 05/10/23 @ 14:04 Alfred Watt Wrote To Gastro Front Office dr alfaro referring patient to see Dr Fara Rodriguez for Reflux Symptoms, he had seen Eliecer in the past, please send back appt date and time Assessment & Plan (1) Transaminitis: Code(s): R74.01 - Elevation of levels of liver transaminase levels Plan 65 year old Estonian-speaking male with CKD3, anemia of CKD, hypothyroidism, HLD, DM2, and COVID-19 pneumonia not requiring hospitalization.? His left leg is amputated above the knee.? [place] [facility] [place] with rhabdomyolysis (CPK 56841, AST is 1001, ALT 357 and a normal serum creatinine of 0.85) attributed to use of atorvastatin and fenofibrate which were discontinued He underwent alkaline diuresis, then saline diuresis and his CPK came down steadily. LFT and troponin elevations were attributed to cross-reactivity with skeletal muscle.? Pt was counseled to avoid all statins and fibrates [pharmacologic-grade omega-3 fatty acids could be considered for lipid lowering therapy].? Due to weakness and deconditioning, he was discharged to short-term rehabilitation at a SNF.? FU LFTs were normal. FU in 4 months. TODAYS VISIT Estonian #Gisel Linares He says he has intermittent HB but it is better with this and he shows me a box of pepto bismol. BUT he says he is not taking the Pepto, but is taking omeprazole 40mg every day. (he is not good with the names of his medicines). He says that this is working well for his HB and he does not have any more sx. He has never had a colonoscpoy and refuses this. He says he has done COloguar and it was fine. He does not desire any procedures. Since his sx are controlled and he has no other apparent needs I think he can continue with his PCP and his omeprazole. He is welcome to return if there was a miscommunication of his current GI needs. [facility] Medical History Transaminitis Amputee, above knee History of left below knee amputation Unsteady gait Mixed hyperlipidemia Autoimmune thyroiditis CKD stage 3 due to type 2 diabetes mellitus B12 deficiency Anemia in CKD (chronic kidney disease) Surgical History History of above-knee amputation History of circumcision Family History Father Hypertension Mother Stroke Sister Breast cancer Brother No problems noted. Brother No problems noted. Brother No problems noted. Social History Household Members: None Housing: Apartment Are you a primary customer care representative to a significant other at home: No Do you presently have visiting nurse or other home services: No Alcohol intake: never Patient Tobacco Use Status: Never used Tobacco e-Cigarette/Vaping Use: Never Used Second Hand Smoke Exposure: No service: No Current occupational status: disabled Cognitive needs: Yes Hearing needs: No Vision needs: No Review of Systems Const Denies fatigue, Denies fever(s), Denies night sweats, Denies poor appetite and Denies weight loss ENT Reports Normal hearing present, Denies dental pain, Denies dysphagia, Denies hearing loss, Denies mouth pain, Denies odynophagia, Denies throat swelling, Denies tongue swelling and Reports other (Dentition adequate) Card Reports no additional complaints Resp Reports no additional complaints GI Denies abdominal pain, Denies melena, Denies bloating, Denies hematochezia, Denies constipation, Denies GI cramping, Denies dysphagia, Denies excessive flatus, Denies early satiety, Reports heartburn, Denies diarrhea, Denies nausea, Denies odynophagia, Denies vomiting and Denies hematemesis Skin/Breast Denies pruritus, Denies lesions, Denies rash and Denies jaundice Neuro Reports Normal hearing present and Denies Abnormal speech present Endo Denies fatigue Aller/Immun Denies throat swelling and Denies tongue swelling Physical Exam Vital Signs: Last Vital Signs Pulse 80 05/30/23 12:51 BP 154/85 H 05/30/23 12:51 Const General: cooperative, no acute distress, well developed and well groomed Nutritional Appearance: well nourished and obese Orientation/consciousness: oriented to person, oriented to place and oriented to time Limitations: No language barrier and wheelchair HEENT Head: Yes normocephalic and Yes atraumatic Eyes General: appearance normal, both eyes and all related structures Pupils: Equal, round and reactive pupils present Neck Neck: Yes normal visual inspection and Yes no lymphadenopathy Thyroid: Thyroid normal Resp Effort & Inspection: normal respiratory effort and able to speak in complete sentences Auscultation: clear to auscultation bilaterally Cardio Rate: regular rate Rhythm: regular rhythm Heart sounds: Normal, physiologic split S2 sound present Peripheral pulses: radial pulses present and posterior tibial pulses present GI Inspection: No distended and No Abdominal panniculus present Palpation (GI): Soft to palpation, nontender, no guarding, not rigid, No hepatosplenomegaly present and Hepatosplenomegaly present Percussion: Yes normal to percussion Auscultation: normal bowel sounds Rectal Exam - Male: Yes deferred Skin General skin exam: no rashes or lesions noted, turgor normal, skin not dry, no jaundice, No spider nevi and no striae Rashes: no rashes Nails: normal Neuro General: oriented to person, oriented to place and oriented to time Cranial nerves: Yes Equal, round and reactive pupils present and Yes Normal hearing present Speech: No Abnormal speech present Extrem Other: left AKA General: No clubbing, No cyanosis and No edema Psych Appearance: grossly normal and well kempt Mental Status: mental status grossly normal Speech and movement: Normal speech and movement present Affect: normal affect Attitude: cooperative Thought process: Normal thought process present and not confabulating Thought content: Normal thought content present Insight: Fair insight present (Psych) Judgement: Fair judgement present (Psych) Assessment & Plan Assessment & Plan (1) GERD (gastroesophageal reflux disease): Code(s): K21.9 - Gastro-esophageal reflux disease without esophagitis Plan: Estonian #Gisel Live He says he has intermittent HB but it is better with this and he shows me a box of pepto bismol. BUT he says he is not taking the Pepto, but is taking omeprazole 40mg every day. (he is not good with the names of his medicines). He says that this is working well for his HB and he does not have any more sx. He has never had a colonoscpoy and refuses this. He says he has done COloguar and it was fine. He does not desire any procedures. Since his sx are controlled and he has no other apparent needs I think he can continue with his PCP and his omeprazole. He is welcome to return if there was a miscommunication of his current GI needs. (2) CKD stage 3 due to type 2 diabetes mellitus: Code(s): E11.22 - Type 2 diabetes mellitus with diabetic chronic kidney disease; N18.30 - Chronic kidney disease, stage 3 unspecified Coding Level of Care Code Est Pt Level 3 (61976) Diagnoses GERD (gastroesophageal reflux disease) K21.9 CKD stage 3 due to type 2 diabetes mellitus E11.22; N18.30
[2023-05-30 12:51] VITALS: BP 154/85; PULSE 80
== END 2023-05-30 14:54 | disposition home or self-care (01) ==
PROVIDERS: PCP Internal Medicine; Visit Provider Nurse Practitioner
DX: K21.9 Gastro-esophageal reflux disease without esophagitis (principal); E11.22 Type 2 diabetes mellitus with diabetic chronic kidney disease; N18.30 Chronic kidney disease, stage 3 unspecified
CPT/HCPCS: 99213

== ENCOUNTER → 2023-05-30 12:26 | Outpatient (BNVA) | payer OTHER, MEDICAID, SELFPAY | PROVIDERS: PCP Internal Medicine; Visit Provider Nurse Practitioner ==

== ENCOUNTER 2023-08-13 09:29 | Outpatient (REF) | payer OTHER, SELFPAY ==
[2023-08-13 10:07] LABS: Basophils Percent Auto 0.3 % (0-2); Eosinophils Absolute Auto 0.1 X10*3/uL (0.0-0.4); Hematocrit 33.2 % (42.0-52.0); Hemoglobin 10.6 g/dl (14.0-18.0); Imm Gran Abs Auto 0.01 X10*3/uL (0.00-0.03); Imm Gran Pct Auto 0.2 % (0.0-0.4); Lymphocytes Absolute Auto 2.3 X10*3/uL (1.2-4.9); Lymphocytes Percent Auto 38.4 % (20-40); MANUAL DIFF FLAG SCAN; Mean Corpuscular HGB Conc 31.9 g/dl (31.0-36.0); Mean Corpuscular Volume 84.7 fL (80.0-98.0); Monocytes Absolute Auto 0.6 X10*3/uL (0.1-1.2); Monocytes Percent Auto 10.6 % (2-11); Neutrophils Absolute Auto 2.9 x10*3/uL (2.0-8.3); Neutrophils Percent Auto 48.5 % (45-73); PLT CLUMP 1; Red Blood Count 3.92 X10*6/uL (4.60-5.80); Red Cell Distribution Width 14.3 % (11.0-16.0); SCAN SMEAR FLAG 1
[2023-08-13 10:44] LABS: Alanine Aminotransferase 18 U/L (0-40); Albumin Level 3.7 g/dL (3.5-5.0); Alkaline Phosphatase 73 U/L (39-117); Anion Gap 14 (12-20); Aspartate Amino Transferase 18 U/L (5-37); Bilirubin Total 0.4 mg/dL (0.0-1.0); Blood Urea Nitrogen 9 mg/dL (9-16); Calcium 9.2 mg/dL (8.4-10.2); Carbon Dioxide 20 mmol/L (22-29); Chloride 112 mmol/L (96-108); Cholesterol 125 mg/dL (<200); Estimated Glomerular Filt Rate > 60; Glucose Fasting 90 mg/dL (60-99); HDL Cholesterol 29 mg/dL (>40); Iron 50 mcg/dL (45-160); LDL Cholesterol Calculated 68 mg/dL (<100); Percent Iron Saturation 19 % (15-50); Potassium 3.3 mmol/L (3.3-5.1); Sodium 143 mmol/L (135-145); Total Iron Binding Capacity 268 mcg/dL (228-428); Total Protein 6.9 g/dL (6.5-8.0); Triglycerides 140 mg/dL (<150); Unsaturated Iron Binding 218 ug/dL
[2023-08-13 11:01] LABS: SLIDE REVIEW VERIFIED
[2023-08-13 11:04] LABS: Thyroid Stimulating Hormone < 0.01 uIU/mL (0.32-4.0); Vitamin D 25-OH Total 39.4 ng/mL (>30)
[2023-08-13 11:14] LABS: Vitamin B12 252 pg/mL (200-900)
[2023-08-13 12:31] LABS: Creatinine Urine 135.75 mg/dL; Microalbum/Creatinine Ratio Ur 7.3 ug/mg cr (<30)
== END 2023-08-13 09:30 | disposition home or self-care (01) ==
LOC: HO.LAB 09:29
PROVIDERS: PCP Internal Medicine; Visit Provider Internal Medicine
DX: Z00.00 Encounter for general adult medical examination without abnormal findings (principal); D64.9 Anemia, unspecified; E53.8 Deficiency of other specified B group vitamins; E78.5 Hyperlipidemia, unspecified; E11.9 Type 2 diabetes mellitus without complications; E06.3 Autoimmune thyroiditis; E55.9 Vitamin D deficiency, unspecified
CPT/HCPCS: 36415; 80053; 80061; 82043; 82306; 82570; 82607; 82746; 83540; 84443; 85025

== ENCOUNTER 2023-08-28 12:35 | Outpatient (AMB) | payer OTHER, MEDICAID, SELFPAY ==
[2023-08-28 12:37] VITALS: BP 140/70
--- NOTE | 2023-08-28 12:37 | MHC.PC.OV ---
Vital Signs 08/28/23 12:37 BMI Reason not done Patient refused/unable BP 140/70 H Blood Pressure Location Lt brachial Position Sitting Intake Visit Reasons: Annual Exam Intake Note: Patient here for an annual physical exam Acute Coordinator Required: No Accompanied by: Self / Same As Patient Allergies No Known Drug Allergies Allergy (Verified 08/28/23 12:54) Cough Medication List - Last Reviewed 08/28/23 by SEAN Peterson alcohol swabs topical 3 times a day; aspirin (Adult Aspirin Regimen) 81 mg PO DAILY 90 days atorvastatin 80 mg PO BEDTIME 90 days blood pressure monitor As directed blood sugar diagnostic As directed blood sugar diagnostic (OneTouch Verio test strips) Use 1 test strip daily blood-glucose meter (OneTouch Verio Flex Meter) As directed cholecalciferol (vitamin D3) 50 mcg PO DAILY 90 days fenofibrate 54 mg PO DAILY 90 days gabapentin 100 mg PO TID 90 days glipizide ER 10 mg PO DAILY 90 days lancets (NabsysTouch UltraSoft Lancets) Use 1 lancet once a day lancets As directed daily- for OneTouch Verio levothyroxine 200 mcg PO DAILY 90 days lisinopril 2.5 mg PO DAILY 90 days metformin ER 1,000 mg (2 x 500 mg) PO DAILY 90 days omeprazole 40 mg (2 x 20 mg) PO DAILY 90 days pioglitazone (Actos) 45 mg PO DAILY 90 days [wheelchair As directed] [wheelchair cushion As directed] Tobacco use date assessed: 08/28/23 Fall risk assessment: No Falls in past year Last assessed Fall Risk: 08/28/23 Dental Screening Dental Screen Date: 08/28/23 Did you have a dental visit in the last 12 months?: No Did you have a dental problem in the last 6 months where you did not have access to dental care?: No Was dental information given to patient?: Patient has dentist HPI HPI Comments History of Present Illness Details This is a 67-year-old male with diabetes mellitus type 2 and left above-knee amputation of lower limb that comes for his physical exam. On wheelchair. No chest pain or shortness of breath. Cologuard was sent without a some ball and I will reorder days. A1c within goal. [facility] Medical History Transaminitis Amputee, above knee History of left below knee amputation Unsteady gait Mixed hyperlipidemia Autoimmune thyroiditis CKD stage 3 due to type 2 diabetes mellitus B12 deficiency Anemia in CKD (chronic kidney disease) Surgical History History of above-knee amputation History of circumcision Family History Father Hypertension Mother Stroke Sister Breast cancer Brother No problems noted. Brother No problems noted. Brother No problems noted. Social History Household Members: None Housing: Apartment Are you a primary md do resident urgent care to a significant other at home: No Do you presently have visiting nurse or other home services: No Alcohol intake: never Patient Tobacco Use Status: Never used Tobacco e-Cigarette/Vaping Use: Never Used Second Hand Smoke Exposure: No service: No Current occupational status: disabled Cognitive needs: Yes Hearing needs: No Vision needs: No Questionnaire PHQ-9 Over the last 2 weeks, how often have you been bothered by any of the following problems? 1. Little interest or pleasure in doing things: not at all 2. Feeling down, depressed, or hopeless: not at all 3. Trouble falling or staying asleep, or sleeping too much: not at all 4. Feeling tired or having little energy: not at all 5. Poor appetite or overeating: not at all 6. Feeling bad about yourself - or that you are a failure or have let yourself or your family down: not at all 7. Trouble concentrating on things, such as reading the newspaper or watching television: not at all 8. Moving or speaking so slowly that other people could have noticed. Or the opposite - being so fidgety or restless that you have been moving around a lot more than usual: not at all 9. Thoughts that you would be better off or of hurting yourself in some way: not at all Total score: 0 Depression Screening Interpretation: Negative Depression Screening Done: Yes 67972 - PHQ-9 Billing: Yes Source: Developed by Drs. Junito Jiménez, Lesley Ruggiero, Paxton Beyer and colleagues, with an educational caesar from [employer]. Thrive Questionnaire Date Thrive assessed: 08/28/23 I am a: Patient What is your living situation today?: I have a steady place to live Within the past 12 months, did the food you bought not last and you didn't have the money to get more?: Never true Within the past 12 months, did you worry whether your food would run out before you got money to buy more?: Never true Do you have trouble paying for medicines?: No Do you have trouble getting transportation to medical appointments?: No Do you have trouble paying your heating and electricity bill?: No Do you have trouble taking care of your child, family member or friend?: No Do you have trouble with day-to-day activities such as bathing, preparing meals, shopping, managing finances, etc.?: Yes Are you currently unemployed and looking for a job?: No Are you interested in more education?: No Please select the resources that you would like help with: None Currently or been in a relationship where the following occur: no concerns reported AUDIT C Alcohol Use Questionnaire (AUDIT-C) 1. How often do you have a drink containing alcohol?: Never Total Score: 0 TANNA-7 AMB Questionnaire TANNA-7 Date TANNA - 7 assessed: 08/28/23 Feeling nervous, anxious, or on edge: 0 = Not at all Not being able to stop or control worryin = Not at all Worrying too much about different things: 0 = Not at all Trouble relaxin = Not at all Being so restless that it is hard to sit still: 0 = Not at all Becoming easily annoyed or irritable: 0 = Not at all Feeling afraid as if something awful might happen: 0 = Not at all Total TANNA-7 score (0-4 normal; 5-9 mild; 10-14 moderate; 15-21 severe): 0 Source: Developed by Drs. Junito Jiménez, Lesley Ruggiero, Paxton Beyer and colleagues, with an educational caesar from [employer]. TANNA-7 Assessment Billing TANNA-7 Assessment Tool: TANNA-7 Assessment 47670 Review of Systems Const All systems reviewed & are unremarkable except as noted in HPI and below Eyes Reports no additional complaints, Denies change in vision and Denies other visual disturbances Card Denies chest pain at rest, Denies chest pain with activity, Denies edema, Denies irregular heart rhythm, Denies claudication, Denies dyspnea, Denies dyspnea on exertion, Denies orthopnea, Denies paroxysmal nocturnal dyspnea and Denies slow heart rate Resp Denies cough, Denies dyspnea and Denies dyspnea on exertion GI Denies abdominal pain, Denies change in bowel habits, Denies excessive flatus, Denies nausea and Denies vomiting Denies urinary hesitancy, Denies urinary incontinence and Denies urinary urgency Musc Denies abnormal gait, Denies atrophy, Denies deformity and Denies limited range of motion Skin/Breast Denies bleeding lesions, Denies changing lesions and Denies rash Neuro Denies abnormal gait, Denies behavioral changes, Denies confusion and Denies lack of coordination Psych Denies behavioral changes and Denies confusion Physical exam (Primary Care) Vital Signs: Last Vital Signs BP 140/70 H 08/28/23 12:37 Tobacco/Smoking Status: Tobacco use Status Tobacco use date assessed 12/07/21 08/28/23 12:40 Patient Tobacco Use Status Never used Tobacco 08/28/23 12:40 e-Cigarette/Vaping Use Never Used 08/28/23 12:40 Depression Screening Interpretation: Negative Thrive Assessment: Date of Thrive Assessment Date Thrive assessed 12/07/21 08/28/23 12:40 Currently or been in a relationship where the following occur: no concerns reported Const General: No confusion Orientation/consciousness: patient oriented x3 and No confusion Limitations: wheelchair HENIA Head: Yes normal to inspection, Yes normocephalic and Yes atraumatic Ears: external ears normal Eyes General: appearance normal, both eyes and all related structures Eyelids: Yes eyelids normal Conjunctivae: conjunctivae normal Neck Neck: Yes normal visual inspection and Yes supple Resp Effort & Inspection: normal respiratory effort Auscultation: clear to auscultation bilaterally Cardio Jugular venous distension: no JVD Rate: regular rate Rhythm: regular rhythm Heart sounds: S1 normal heart sound present and S2 normal heart sound present GI Inspection: Yes normal to inspection Palpation (GI): Soft to palpation and nontender Auscultation: normal bowel sounds Skin General skin exam: no rashes or lesions noted Neuro General: patient oriented x3, no focal motor deficits and No confusion Extrem Other: Left above knee amputation of lower limb Psych Appearance: grossly normal Office Procedures Flu Questionnaire Does the patient have a severe egg allergy?: No Does the patient have severe life threatening allergies?: No Does the patient have a fever or illness today?: No Has the patient ever had Guillain-[place] Syndrome?: No Has the patient ever had any past reaction to a flu shot?: No Results AMB Hemoglobin A1c AMB Hemoglobin A1c 6.9 % Last Edit by SEAN Peterson on 08/28/23 12:57 Immunizations flu vacc [id number] 6mos up(PF) 60 mcg(15 mcgx4)/0.5 mL IM syringe Performing Provider: Elisha Adams MD [facility] Administered by: SEAN Peterson on 08/28/23 12:52 Dose Route Admin Location Dispensed Lot Number Expiration Date 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 (2) Amputee, above knee: Code(s): Z89.619 - Acquired absence of unspecified leg above knee Plan: Continue the use of wheelchair as needed. (3) Diabetes mellitus: Code(s): E11.9 - Type 2 diabetes mellitus without complications Qualifiers: Diabetes mellitus type: type 2 Diabetes mellitus buttermaker continuous churn insulin use: without buttermaker continuous churn use Diabetes mellitus complication status: without complication Qualified Code(s): E11.9 - Type 2 diabetes mellitus without complications Plan: Continue metformin, glipizide and Actos. A1c goal is equal or less than 7%. Orders: Orders AMB Hemoglobin A1c Today E11.9 - Type 2 diabetes mellitus without complications Lipid Panel 6 Months E78.5 - Hyperlipidemia, unspecified Comprehensive [place]edom. Panel Fast 6 Months E11.22 - Type 2 diabetes mellitus with diabetic chronic kidney disease, N18.30 - Chronic kidney disease, stage 3 unspecified Microalbumin, Random (w Creat) 6 Months E11.9 - Type 2 diabetes mellitus without complications IRON PROFILE 6 Months D64.9 - Anemia, unspecified Influenza 3727-2704 Immunization Today Z23 - Encounter for immunization Thyroid Stimulating Hormone 8 Weeks E06.3 - Autoimmune thyroiditis Complete Blood Count Auto Diff 6 Months D64.9 - Anemia, unspecified Referrals Cologuard Test Z12.11 - Encounter for screening for malignant neoplasm of colon, Z12.12 - Encounter for screening for malignant neoplasm of rectum Medications: New levothyroxine 175 mcg PO DAILY 90 days 90 tabs 1RF E06.3 - Autoimmune thyroiditis Discontinued levothyroxine Discontinued Reason: Patient Completed Course 200 mcg PO DAILY 90 days 90 tabs 1RF Coding Level of Care Code Est Pt Prev Care >65y(21396) Diagnoses Physical exam Z00.00 Amputee, above knee Z89.619 Type 2 diabetes mellitus without complication, without long-term current use of insulin E11.9 Diabetes mellitus type: type 2 Diabetes mellitus buttermaker continuous churn insulin use: without buttermaker continuous churn use Diabetes mellitus complication status: without complication Additional Codes TANNA-7 Assessment Billing - TANNA-7 Assessment Tool: TANNA-7 Assessment 96770 ([id number]) Time Spent (min) 34
== END 2023-08-28 13:08 | disposition home or self-care (01) ==
PROVIDERS: Visit Provider Internal Medicine
DX: Z00.00 Encounter for general adult medical examination without abnormal findings (principal); Z89.619 Acquired absence of unspecified leg above knee; E11.9 Type 2 diabetes mellitus without complications; Z23 Encounter for immunization
CPT/HCPCS: 83036; 90471; 90686; 99397

== ENCOUNTER 2025-05-04 14:57 | Emergency (ER) | payer OTHER, SELFPAY ==
--- NOTE | ~2025-05-04 | XR_ITS ---
CLINICAL HISTORY: Chest pain 1 view chest x-ray Comparison: None provided Findings: No consolidation or effusion. Small calcified granuloma within the right upper lobe. Normal size heart. Elongation of the aorta. No acute fracture. IMPRESSION: 1. No acute findings. This document has been electronically signed by: Tanika Kirby MD on 05/04/2025 17:38:40
--- NOTE | 2025-05-04 14:58 | ECG_ITS ---
Test Reason : CHEST PAIN Blood Pressure : */* mmHG Vent. Rate : 73 BPM Atrial Rate : 73 BPM P-R Int : 174 ms QRS Dur : 80 ms QT Int : 394 ms P-R-T Axes : 26 21 40 degrees QTcB Int : 434 ms Normal sinus rhythm Normal ECG When compared with ECG of 20-Feb-2021 13:38, T wave inversion no longer evident in Anterior leads Referred By: Generic ED Physician Electronically Signed By: Magdy Hernandez
[2025-05-04 15:08] VITALS: BP 136/105; BP 171/80; PULSE 83; PULSE 89; RESP 18; TEMP 36.5; O2SAT 97; O2SAT 98; BMI 29.3
--- OUTSIDE RECORDS SUMMARY | 2025-05-04 15:29 | XMS_ITS ---
Author Organization [facility] Care Team Providers Care Interactive Multimedia Designer Name Role Phone Charlie Eller Unavailable Unavailable Beatriz Mauro Unavailable Unavailable Allergies and adverse reactions No Known Allergies Care Team Name Role Address Phone Organization Dates Charlie Eller [facility] [address], [address], [facility] (Office): : [facility] 09/10/2020 - 10/07/2020 Beatriz Mauro [address], [address], [facility] (Office): [facility] 09/10/2020 - 10/07/2020 Immunizations Immunization Status Vaccine Details Vaccine Code CodeSystem Date Notes Influenza completed Influenza, split virus, trivalent, injectable, contains preservative lotNumber: [id number] expiry: 03/02/2021 Mfg: Seriqus Given 0.5 ml Left Deltoid intramuscularly 141 CVX created date: 09/14/2020 consent date: 09/14/2020 administer ed date: 09/14/2020 TB 2 Step Mantoux Skin Test completed tuberculin skin test; unspecified formulation Given Right Forearm Step 1 of Multi-step with next step required 98 CVX created date: 09/14/2020 consent date: 09/14/2020 administer ed date: 09/11/2020 PCV13 (Pneumococcal Conjugate)Vacci ne cancelled pneumococcal conjugate vaccine, 13 valent 133 CVX created date: 09/14/2020 consent date: 09/14/2020 unsure when he received but aware he had it in the last 5 years Mental Status Section Date Assessment Total Score Description 10/07/2020 BIMS 12 moderate cognit lynda impairment CAM 0 No delirium ind icated PHQ-9 00 09/16/2020 BIMS 11 moderate cognit lynda impairment CAM 0 No delirium ind icated PHQ-9 00 Problems Problem # Description Date of onset Resolved Date Code CodeSystem Concern Status 1 ACUTE KIDNEY FAILURE, UNSPECIFIED 09/14/[address] active 2 ACUTE POSTHEMORRHAGIC ANEMIA 09/14/[address] active 3 COVID-19 09/14/[address] active 4 EMBOLISM AND THROMBOSIS OF ARTERIES OF THE LOWER EXTREMITIES 09/14/[address] active 5 ACQUIRED ABSENCE OF LEFT LEG ABOVE KNEE 09/10/[address] active 6 DIFFICULTY IN WALKING, NOT ELSEWHERE CLASSIFIED 09/10/[address] active 7 DYSPHAGIA, OROPHARYNGEAL PHASE 09/10/[address] active 8 ENCOUNTER FOR ORTHOPEDIC AFTERCARE FOLLOWING SURGICAL AMPUTATION 09/10/[address] active 9 GASTRO-ESOPHAGEAL REFLUX DISEASE WITHOUT ESOPHAGITIS 09/10/[address] active 10 HYPERLIPIDEMIA, UNSPECIFIED 09/10/[address] active 11 HYPOTHYROIDISM, UNSPECIFIED 09/10/[address] active 12 OTHER LACK OF COORDINATION 09/10/[address] active 13 OTHER REDUCED MOBILITY 09/10/[address] active 14 TYPE 2 DIABETES MELLITUS WITHOUT COMPLICATIONS 09/10/[address] active 15 UNSTEADINESS ON FEET 09/10/[address] active Reason for Referral No Reasons for Referral Entered Social History Social History Observation Description Start Date End Date Code Code System Current Smoking Status Tobacco smoking consumption unknown 427153755 SNOMED CT Sex Assigned At Male 1955 44003-5 [facility] Gender Identity Vital Signs Code Code System Vitals Name Values and Units Timing Information 2339-0 [facility] Blood Sugar Edggg=563.0 Units=mg/dL 10/07/2020 8462-4 [facility] Blood Pressure-Diastolic Value=66 Un its=mmHg 10/07/2020 8480-6 [facility] Blood Pressure-Systolic Hnici=581 Un its=mmHg 10/07/2020 8867-4 [facility] Heart rate Value=74.0 Units=/min 12/2020 98648-9 [facility] Pain Level Value=0.0 10/07/2020 8310-5 [facility] Body Temperature Value=96.5 Units= F 10/07/2020 68751-8 [facility] O2 % BldC Oximetry Value=95.0 Units= % 10/07/2020 9279-1 [facility] Respiratory Rate Value=18.0 Units=/m in 10/05/2020 76863-7 [facility] Weight Cysrs=427.0 Units=Lbs 8302-2 [facility] Height Value=63.0 Units=Inches 09/10/2020
--- OUTSIDE RECORDS SUMMARY | 2025-05-04 15:29 | XMS_ITS | Clinical Summary ---
Author Organization [facility] Address [address] [place] [address] Phone Care Team Providers Care Tape Edge Machine Operator Name Role Phone Elisha Olguin MD Primary Care Provider [phone] Allergies No known active allergies Medications atorvastatin (LIPITOR) 80 MG tablet Take 1 tablet by mouth 1 (one) time each day Active fenofibrate (TRICOR) 145 MG tablet Take 1 tablet by mouth 1 (one) time each day Active glipiZIDE (GLUCOTROL XL) 10 MG 24 hr tablet Take 1 tablet by mouth 1 (one) time each day Active levothyroxine (SYNTHROID, LEVOTHROID) 200 MCG tablet Take 1 tablet by mouth 1 (one) time each day Active metFORMIN (FORTAMET) 500 MG 24 hr tablet Take 1 tablet by mouth 2 (two) times a day Active pioglitazone (ACTOS) 45 MG tablet Take 1 tablet by mouth 1 (one) time each day Active omeprazole (PriLOSEC) [address] capsule TAKE 1 CAPSULE BY MOUTH EVERY DAY 30 MINUTES BEFORE BREAKFAST 1 Active Alcohol Swabs (Alcohol Prep) 70 % pads USE TOPICALLY DIRECTED THREE TIMES DAILY 1 Active Aspirin Adult Low Strength 81 MG EC tablet Take 81 mg by mouth 1 (one) time each day 1 Active gabapentin (NEURONTIN) 100 MG capsule Take 100 mg by mouth 3 times a day 1 Active Lantus SoloStar 100 UNIT/ML injection INJECT 10 UNITS UNDER THE SKIN EVERY EVENING 1 Active levothyroxine (SYNTHROID, LEVOTHROID) 50 MCG tablet Take 50 mcg by mouth 1 (one) time each day 1 Active metFORMIN XR (GLUCOPHAGE-XR) 500 MG 24 hr tablet Take 500 mg by mouth 1 (one) time each day Active omeprazole (PriLOSEC) [address] capsule Take 20 mg by mouth 1 (one) time each day 1 Active Active Problems Problem Noted Date Diagnosed Date Chronic kidney disease stage 3 11/05/2020 Essential hypertension 11/05/2020 Acute kidney failure 09/14/2020 Acute posthemorrhagic anemia 09/14/2020 COVID-19 09/14/2020 Embolism and 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 09/14/2020 Type 2 diabetes mellitus without complication Acquired absence of left leg above knee 09/10/19 21 Difficulty in walking 09/10/2020 Dysphagia, oropharyngeal phase 09/10/2020 Encounter for orthopedic aft ercare following surgical amputation 09/10/2020 Gastro-esophageal reflux disease without esophag itis 09/10/2020 Hyperlipidemia 09/10/2020 Hypothyroidism 09/10/2020 Other lack of coordination 09/10/2020 Other reduced mobility 09/10/2020 Unsteadiness on feet 09/10/2020 Immunizations Immunization Administration Dates Next Due Influenza TIV (IM) 09/14/2020 PPD Test 09/11/2020 Family History Medical History Relation Comments Hypertension Father Dementia Mother Diabetes Mother Stroke Mother Cancer Sibling Relation Status Comments Father Mother Sibling Social History Tobacco Use Types Packs/Day Years Used Date Smoking Tobacco: Never Smokeless Tobacco: Never Alcohol Use Standard Drinks/Week Comments No 0 (1 standard drink = 0.6 oz pur e alcohol) Sex and Gender Information Value Date Recorded Sex Assigned at Not on file Legal Sex Male 4:54 PM EST Gender Identity Not on file Sexual Orientation Not on file Last Filed Vital Signs Vital Sign Reading Time Taken Comments Blood Pressure 154/72 02/17/2019 12:00 PM EDT Pulse 65 02/17/2019 12:00 PM EDT Temperature - - Respiratory Rate - - Oxygen Saturation 96% 02/17/2019 12:00 PM EDT Inhaled Oxygen Concentration - - Weight 87.5 kg (193 lb) 02/17/2019 12:00 PM EDT Height 172.7 cm (5' 8 ) 02/17/2019 12:00 PM EDT Body Mass Index 29.35 02/17/2019 12:00 PM EDT Plan of Treatment Health Maintenance Due Date Last Done Comments Pneumococcal Vaccine: 50+ Ye ars (1 of 2 - PCV) 1972 Colorectal Cancer Screening: Annual FOBT 2002 Colorectal Cancer Screening: Colonoscopy 2002 Colorectal Cancer Screening: Sigmoidoscopy 2002 Diabetes: Hemoglobin A1C 10/03/2020 Diabetes: Ophthalmology Exam 10/03/2020 Diabetes: Pedal Pulse Checked 10/03/2020 Diabetes: Sensory Foot Exam 10/03/2020 Diabetes: Visual Foot Exam 10/03/2020 Influenza Vaccine (#1) 2025 09/14/2020 Hepatitis B Vaccine Aged Out No longe r eligible based on patient's age to complete this topic Insurance Medicare Medicaid [place] Medicare Medicaid [place] Care Teams Tape Edge Machine Operator Relationship Specialty Start Date End Date Elisha Olguin MD [address] [place], [place] PCP - General 09/13/20
--- NOTE | 2025-05-04 15:51 | ED.CHESTPAIN ---
HPI - Chest Pain General Chief Complaint: Chest Pain Stated Complaint: CHEST PAIN SINCE YESTERDAY Time Seen by Provider: 05/04/25 15:21 Source: patient, EMS and senior backup administrator Mode of arrival: EMS Limitations: no limitations History of Present Illness ED Provider: DR. Fierro HPI narrative: 69-year-old male with CKD 3, anemia of CKD, hypothyroidism, HLD, dm 2, left BKA who presented for evaluation of right-sided chest pain that is started about 1 week ago, pain is localized to the right upper chest with no radiation, no clear aggravating or clearing factor, patient stated that the pain maybe attributed to sleeping on his right side, otherwise declined any strenuous activity, no heavy lifting. Related Data Home Medications ?Medication ?Instructions ?Recorded ?Confirmed blood sugar diagnostic #10 ea 06/30/20 08/28/23 Previous Rx's ?Medication ?Instructions ?Recorded wheelchair #1 ea 11/08/20 wheelchair cushion #1 ea 08/22/21 alcohol swabs See Rx Instructions topical TID 10/05/21 #100 ea lancets (OneTouch UltraSoft #100 ea 11/09/21 Lancets) blood sugar diagnostic (OneTouch #100 ea 12/07/21 Verio test strips) blood-glucose meter (OneTouch #1 ea 12/07/21 Verio Flex Meter) lancets 28 gauge #100 ea 12/07/21 blood pressure monitor #1 ea 08/22/22 aspirin 81 mg tablet,delayed 81 mg PO DAILY 90 days #90 tabs 06/25/24 release (Adult Aspirin Regimen) atorvastatin 80 mg tablet 80 mg PO BEDTIME 90 days #90 tabs 12/30/24 lisinopril 2.5 mg tablet 2.5 mg PO DAILY 90 days #90 tabs 12/30/24 fenofibrate 54 mg tablet 54 mg PO DAILY 90 days #90 tabs 01/21/25 glipizide 10 mg tablet, extended 10 mg PO DAILY 90 days #90 tabs 01/21/25 release 24 hr metformin 500 mg tablet,extended 1,000 mg (2 x 500 mg) PO DAILY 90 01/21/25 release 24 hr days #180 tabs omeprazole 20 mg capsule,delayed 40 mg (2 x 20 mg) PO DAILY 90 days 01/21/25 release #180 caps cholecalciferol (vitamin D3) 50 50 mcg PO DAILY 90 days #90 caps 03/26/25 mcg (2,000 unit) capsule gabapentin 100 mg capsule 100 mg PO TID 90 days #270 caps 03/26/25 levothyroxine 175 mcg tablet 175 mcg PO DAILY 30 days #30 tabs 04/23/25 pioglitazone 45 mg tablet (Actos) 45 mg PO DAILY 90 days #90 tabs 04/23/25 acetaminophen 500 mg tablet 500 mg PO Q6H PRN pain #30 tabs 05/04/25 (Tylenol Extra Strength) cyclobenzaprine 10 mg tablet 10 mg PO TID PRN muscle spasm #14 05/04/25 tabs Allergies Allergy/AdvReac Type Severity Reaction Status Date / Time No Known Drug Allergies Allergy Cough Verified 05/04/25 15:20 Review of Systems Review of Systems: All other systems are reviewed and are negative Constitutional: Reports as per HPI and Reports no additional constitutional complaints Eyes: Reports as per HPI and Reports no additional eye complaints Reports system reviewed and no additional complaints, except as documented Cardiovascular: Reports as per HPI and Reports no additional cardiovascular complaints Respiratory: Reports as per HPI and Reports no additional respiratory complaints Gastrointestinal: Reports as per HPI and Reports no additional gastrointestinal complaints Genitourinary: Reports no additional female genitourinary complaints Musculoskeletal: Reports no additional musculoskeletal complaints Skin/Breast: Reports system reviewed and no additional complaints, except as docu Psychiatric: Reports no additional psychiatric complaints Endocrine: Reports no additional endocrine complaints Hematologic/Lymphatic: Reports no additional hematologic/lymphatic complaints Allergic/Immunologic: Reports no additional allergic/immunologic complaints Reports system reviewed and no additional complaints, except as documented and Reports Abnormal speech present [facility] Past Medical History Medical History Transaminitis Amputee, above knee Unsteady gait Mixed hyperlipidemia Autoimmune thyroiditis CKD stage 3 due to type 2 diabetes mellitus B12 deficiency Anemia in CKD (chronic kidney disease) Surgical History History of left below knee amputation History of above-knee amputation History of circumcision Family History Family History Father Hypertension Mother Stroke Sister Breast cancer Brother No problems noted. Brother No problems noted. Brother No problems noted. Social History Social History Household Members: None Housing: Apartment Are you a primary critical care nurse practitioner to a significant other at home: No Do you presently have visiting nurse or other home services: No Alcohol intake: never Patient Tobacco Use Status: Never used Tobacco Smoked in Last 30 Days: No e-Cigarette/Vaping Use: Never Used Second Hand Smoke Exposure: No Use of substances other than those prescribed or required for medical reasons: No Advance Directives: No Advance Directives Information Provided: Yes Do you have a plan to hurt others: No Plan service: No Current occupational status: disabled Cognitive needs: Yes Hearing needs: No Vision needs: No Physical Exam Vital Signs: Vital Signs: Last Vital Signs Temp 97.7 F 05/04/25 15:08 Pulse 74 05/04/25 17:33 Resp 18 05/04/25 17:33 BP 162/77 H 05/04/25 17:33 Pulse Ox 100 05/04/25 17:33 O2 Del Method Room Air 05/04/25 17:33 BMI result Body Mass Index 29.3 Vital signs have been reviewed and appear to be correct. Blood pressure elevated. Heart rate normal. Respiratory rate normal. Temperature normal. Oxygen saturation normal. Appearance: Alert. Oriented X3. No acute distress. Head: Normal external exam. Normocephalic. Atraumatic. No Garcia signs noted. No raccoon eyes noted Eyes: PERRLA. EOMI. Conjunctiva and sclera normal. Eyelids normal. ENT: TM's Normal. Pharynx normal. Uvula midline. Moist mucous membranes. No trismus noted. No drooling noted. No muffled voice noted. Neck: Normal inspection. Neck supple. FROM. No adenopathy. Thyroid Normal. No meningeal signs. No neck mass noted. CVS: Normal heart rate and rhythm. Heart sound normal. No murmurs noted. Pulses normal throughout. Respiratory: No respiratory distress. Painless inspiration. Breath sounds normal. No wheezes/rales/rhonchi noted. Chest nontender. No accessory muscle usage noted or decreased air movement noted. Abdomen: Soft and nontender. Bowel sounds normal in all 4 quadrants. No distention noted. No organomegaly noted. No visible injury noted. Back: No CVA tenderness. Full range of motion noted. Skin: Skin warm and dry. Normal skin color. Normal skin turgor. No rashes/lesions/lacerations noted. Extremities: No lower extremity edema. Extremities exhibit normal range of motion. Extremities nontender. Neuro: Oriented X 3. Cranial nerve exam: II-XII are grossly intact No motor deficit. No sensory deficit. Reflexes normal. Course Reevaluation(s) Reevaluation #1: right-sided chest pain for a week or more no trauma, unremarkable workup for ACS or pulmonary embolism. Chest x-ray shows no rib fracture. Will discharge home on Tylenol and muscle relaxant. Time: 18:18 Medical Decision Making Differential Diagnosis Differential Diagnoses: The differential diagnosis associated with the presentation includes ( ACS, pulmonary embolism, pneumonia, pneumothorax, pleural effusion, a myofascial chest pain, rib fracture.) Admission/Observation Consideration of admission/observation: Escalation of care including admission/observation considered Lab Data MDM Lab Attestation statement: I reviewed the patient's lab results. 05/04/25 17:22 05/04/25 17:22 Labs: Lab Results 05/04/25 Range/Units 17:22 WBC 6.4 (4.8-10.8) X10*3/uL RBC 3.81 L (4.60-5.80) X10*6/uL Hgb 10.0 L (14.0-18.0) g/dl Hct 31.9 L (42.0-52.0) % MCV 83.7 (80.0-98.0) fL MCH 26.2 L (27.0-33.0) pg MCHC 31.3 (31.0-36.0) g/dl RDW 14.8 (11.0-16.0) % Plt Count 304 D (160-400) X10*3/uL MPV 11.0 (9.4-12.4) fL Immature Gran % (Auto) 0.5 H (0.0-0.4) % Neut % (Auto) 59.6 (45-73) % Lymph % (Auto) 27.8 (20-40) % [place] % (Auto) 9.9 (2-11) % Eos % (Auto) 1.9 (0-4) % Baso % (Auto) 0.3 (0-2) % Lymph # (Auto) 1.8 (1.2-4.9) X10*3/uL [place] # (Auto) 0.6 (0.1-1.2) X10*3/uL Eos # (Auto) 0.1 (0.0-0.4) X10*3/uL Baso # (Auto) 0.0 (0.0-0.2) X10*3/uL Abs Immat Gran (auto) 0.03 (0.00-0.03) X10*3/uL Absolute Neuts (auto) 3.8 (2.0-8.3) x10*3/uL Absolute Nucleated RBC 0.000 (0.0-0.012) X10*3/uL Nucleated RBC % (auto) 0.0 (0.0-0.2) /100WBC D-Dimer High Sensitivty < 150 NG/ML Sodium 144 (135-145) mmol/L Potassium 4.7 (3.3-5.1) mmol/L Chloride 114 H (96-108) mmol/L Carbon Dioxide 20 L (22-29) mmol/L Anion Gap 15 (12-20) BUN 15 (9-16) mg/dL Creatinine 1.08 (0.5-1.4) mg/dL Estim Creat Clear Calc 58.9 Estimated GFR > 60 Random Glucose 66 (60-115) mg/dL Calcium 8.8 (8.4-10.2) mg/dL Total Bilirubin 0.2 (0.0-1.0) mg/dL Direct Bilirubin < 0.2 (0.0-0.5) mg/dL AST 23 (5-37) U/L ALT 16 (0-40) U/L Alkaline Phosphatase 70 (39-117) U/L Troponin I High Sens < 2.7 (<3.5-35.0) ng/L B-Natriuretic Peptide 87 (<100) pg/mL Total Protein 6.2 L (6.5-8.0) g/dL Albumin 3.8 (3.5-5.0) g/dL Lipase 31 (8-78) U/L Independent Interpretation I performed an independent interpretation of an: EKG ( normal sinus rhythm at 73 beats per minutes, normal intervals, no ST-T changes, no significant change from prior EKG.) and Plain X-Ray ( Chest: No acute findings) Radiology Impression Discussion of test interpretation with radiology: I have reviewed the radiologist's reading. Discharge Plan Discharge Clinical Impression: Anterior chest wall pain Patient Disposition: Home, Self-Care Instructions: Chest Wall Pain (ED) Prescriptions: New cyclobenzaprine 10 mg tablet 10 mg PO TID PRN (Reason: muscle spasm) Qty: 14 0RF acetaminophen [Tylenol Extra Strength] 500 mg tablet 500 mg PO Q6H PRN (Reason: pain) Qty: 30 0RF No Action (DME) wheelchair large See Rx Instructions .Route .MEDSUPPLY Qty: 1 0RF Rx Instructions: As directed (DME) wheelchair cushion See Rx Instructions .Route .MEDSUPPLY Qty: 1 0RF Rx Instructions: As directed alcohol swabs Pads, Medicated See Rx Instructions topical TID Qty: 100 3RF Rx Instructions: topical 3 times a day; (DME) lancets [OneTouch UltraSoft Lancets] Misc See Rx Instructions .Route Qty: 100 3RF Rx Instructions: Use 1 lancet once a day aspirin [Adult Aspirin Regimen] 81 mg tablet,delayed release (DR/EC) 81 mg PO DAILY 90 Days Qty: 90 3RF lisinopril 2.5 mg tablet 2.5 mg PO DAILY 90 Days Qty: 90 1RF atorvastatin 80 mg tablet 80 mg PO BEDTIME 90 Days Qty: 90 1RF omeprazole 20 mg capsule,delayed release(DR/EC) 40 mg PO DAILY 90 Days Qty: 180 1RF Rx Instructions: before breakfast fenofibrate 54 mg tablet 54 mg PO DAILY 90 Days Qty: 90 1RF metformin 500 mg tablet extended release 24 hr 1,000 mg PO DAILY 90 Days Qty: 180 3RF glipizide 10 mg tablet extended release 24hr 10 mg PO DAILY 90 Days Qty: 90 3RF gabapentin 100 mg capsule 100 mg PO TID 90 Days Qty: 270 1RF cholecalciferol (vitamin D3) 50 mcg (2,000 unit) capsule 50 mcg PO DAILY 90 Days Qty: 90 0RF levothyroxine 175 mcg tablet 175 mcg PO DAILY 30 Days Qty: 30 0RF pioglitazone [Actos] 45 mg tablet 45 mg PO DAILY 90 Days Qty: 90 1RF (DME) blood sugar diagnostic Strip See Rx Instructions Not Applicable DAILY Qty: 10 Rx Instructions: As directed (DME) blood pressure monitor Kit See Rx Instructions .Route Qty: 1 0RF Rx Instructions: As directed (DME) OneTouch Verio test strips Strip See Rx Instructions .Route Qty: 100 3RF Rx Instructions: Use 1 test strip daily (DME) blood-glucose meter [OneTouch Verio Flex meter] Misc See Rx Instructions .Route Qty: 1 0RF Rx Instructions: As directed (DME) lancets 28 gauge misc See Rx Instructions topical DAILY Qty: 100 3RF Rx Instructions: As directed daily- for OneTouch Verio Referrals: Elisha Merino MD [Primary Care Provider, Internal Medicine] Print Language: [place]
[2025-05-04 17:26] LABS: MANUAL DIFF FLAG NO
[2025-05-04 17:28] LABS: Hematocrit 31.9 % (42.0-52.0); Hemoglobin 10.0 g/dl (14.0-18.0); Imm Gran Abs Auto 0.03 X10*3/uL (0.00-0.03); Imm Gran Pct Auto 0.5 % (0.0-0.4); Lymphocytes Absolute Auto 1.8 X10*3/uL (1.2-4.9); Mean Corpuscular HGB Conc 31.3 g/dl (31.0-36.0); Mean Corpuscular Hemoglobin 26.2 pg (27.0-33.0); Mean Corpuscular Volume 83.7 fL (80.0-98.0); NRBC Abs Auto 0.000 X10*3/uL (0.0-0.012); NRBC Pct Auto 0.0 /100WBC (0.0-0.2); Platelet Count 304 X10*3/uL (160-400); Red Blood Count 3.81 X10*6/uL (4.60-5.80); White Blood Count 6.4 X10*3/uL (4.8-10.8)
[2025-05-04 17:33] VITALS: BP 162/77; PULSE 74; RESP 18; O2SAT 100
--- NOTE | 2025-05-04 17:40 | PC.NURSE ---
patient a&ox3, rr equal/non labored- lungs clear, pt c/o 10/13 rt upper chest/armpit pain, radiation monitor applied nsr, vss, pt labs drawn, ekg performed, call rios within reach, plan of care ongoing
[2025-05-04 17:44] LABS: D Dimer High Sensitivity < 150 NG/ML
[2025-05-04 17:49] LABS: Alanine Aminotransferase 16 U/L (0-40); Albumin Level 3.8 g/dL (3.5-5.0); Alkaline Phosphatase 70 U/L (39-117); Anion Gap 15 (12-20); Aspartate Amino Transferase 23 U/L (5-37); Blood Urea Nitrogen 15 mg/dL (9-16); Calcium 8.8 mg/dL (8.4-10.2); Carbon Dioxide 20 mmol/L (22-29); Chloride 114 mmol/L (96-108); Creatinine Clr Calc Pharmacy 58.9; Estimated Glomerular Filt Rate > 60; Lipase 31 U/L (8-78); Potassium 4.7 mmol/L (3.3-5.1); Sodium 144 mmol/L (135-145); Total Protein 6.2 g/dL (6.5-8.0)
[2025-05-04 17:59] LABS: B Type Natriuretic Peptide 87 pg/mL (<100)
[2025-05-04 18:07] LABS: Troponin-I High Sensitivity < 2.7 ng/L (<3.5-35.0)
[2025-05-04 18:45] VITALS: BP 168/88; PULSE 76; RESP 18; TEMP 36.7; O2SAT 99
== END 2025-05-04 18:45 | disposition home or self-care (01) ==
PROVIDERS: Emergency Provider Emergency Medicine; PCP Internal Medicine
DX: R07.9 Chest pain, unspecified (principal); N18.30 Chronic kidney disease, stage 3 unspecified; E11.22 Type 2 diabetes mellitus with diabetic chronic kidney disease; D63.1 Anemia in chronic kidney disease
CPT/HCPCS: 36415; 71045; 80048; 80076; 83690; 83880; 84484; 85025; 85379; 93005; 99283; 99284

== ENCOUNTER → 2025-05-04 14:58 | Outpatient (BNV) | payer OTHER, SELFPAY | PROVIDERS: Emergency Provider Emergency Medicine; PCP Internal Medicine; Visit Provider Internal Medicine Cardiovascular Disease | DX: R07.89 Other chest pain (principal) | CPT/HCPCS: 93010 ==

== ENCOUNTER → 2025-05-04 15:20 | Outpatient (BNV) | payer OTHER, SELFPAY | PROVIDERS: Emergency Provider Emergency Medicine; PCP Internal Medicine; Visit Provider Radiology Diagnostic Radiology | DX: R07.9 Chest pain, unspecified (principal) | CPT/HCPCS: 71045 ==